=== PATIENT | male | born 1980 | race Caucasian/White ===

== ENCOUNTER 2022-01-27 09:15 | Inpatient (IN) | payer OTHER ==
[~2022-01-27] VITALS: Ht 167.6 cm; Wt 85.3 kg
--- NOTE | 2022-01-27 09:18 | NUR ---
TONY Ansari FROM [facility], VENT-TRACH DEPENDENT. SENT FOR INCREASED MUCUS DISCHARGE AND TACHYCARDIA. WAS ON ANTIBIOTIC AT THE FACILITY. TO ER BED 8, HOOKED TO PRODUCTION MAINTENANCE TECHNICIAN, TACHY AT 125BPM, VENT SETTINGS OF RATE 16, VT OF 450, O2 40%, PEEP OF 5 USING PORTEX 9. NOTED WARM TO TOUCH, 99.8F RECTAL TEMP, DIAPHORETIC. COOLING MEASURES DONE. AWAITING MD MARQUEZ
--- NOTE | 2022-01-27 09:21 | NUR ---
DR SINGH AT BEDSIDE FOR EVAL
[2022-01-27] MEDS ORDERED: VANCOMYCIN 1 GM in IV D5W 250 ML IV ONE (09:30)
[2022-01-27] MEDS ORDERED: IV NS 0.9% 1,000 ML BAG IV ONE (09:30)
[2022-01-27] MEDS ORDERED: PIPERACILLIN /TAZOBACTAM 3.375 G in IV D5W 50 ML IV ONE (09:30)
[2022-01-27] MEDS ORDERED: NUT.237L30 GT (09:46)
[2022-01-27] MEDS ORDERED: POVI3780 TP (09:46)
[2022-01-27] MEDS ORDERED: FURO-144 GT (09:46)
[2022-01-27] MEDS ORDERED: IPRA4AER IH ×2 (09:46)
[2022-01-27] MEDS ORDERED: CHLO473M5 MM (09:46)
[2022-01-27] MEDS ORDERED: ACET-868 GT (09:46)
[2022-01-27] MEDS ORDERED: DOCU-141 GT (09:46)
[2022-01-27] MEDS ORDERED: CLON0.5T4 GT (09:46)
[2022-01-27] MEDS ORDERED: SENN-261 GT (09:46)
[2022-01-27] MEDS ORDERED: ZINC220C6 GT (09:46)
[2022-01-27] MEDS ORDERED: MULT-447 GT (09:46)
[2022-01-27] MEDS ORDERED: CARV3.122 GT (09:46)
[2022-01-27] MEDS ORDERED: ASCO-352 GT (09:46)
[2022-01-27] MEDS ORDERED: ACET-2605 GT (09:46)
[2022-01-27] MEDS ORDERED: NYST15CR TP (09:46)
[2022-01-27] MEDS ORDERED: PIPE4.5F2 IV (09:46)
[2022-01-27] MEDS ORDERED: CLON0.1T GT (09:46)
[2022-01-27] MEDS ORDERED: ENOX40DI SQ (09:46)
[2022-01-27 09:48] LABS: BASOPHILS # (AUTO) 0.1 K/uL (0.0-0.2); BASOPHILS % (AUTO) 0.8 % (0.0-2.0); EOSINOPHILS % (AUTO) 3.6 % (0.0-6.0); HEMATOCRIT 44 % (39-51); HEMOGLOBIN 14.9 g/dL (13.5-17.5); LYMPHOCYTES % (AUTO) 8.7 % (20.0-44.0); MEAN CORPUSCULAR HGB CONC 34 g/dl (31.0-36.0); MEAN CORPUSCULAR VOLUME 95 fL (80-96); MONOCYTES # (AUTO) 0.6 K/uL (0.1-1.30); MONOCYTES % (AUTO) 4.6 % (2.0-12.0); NEUTROPHILS # (AUTO) 9.8 K/uL (1.8-8.9); NEUTROPHILS % (AUTO) 82.3 % (43.0-81.0); PLATELET COUNT (AUTO) 322 K/uL (150-450); RED BLOOD CELL COUNT(AUTO) 4.67 MIL/uL (4.5-6.0); WHITE BLOOD COUNT (AUTO) 11.9 K/uL (4.3-11.0)
--- NOTE | 2022-01-27 09:48 | NUR ---
RAPID COVID SWAB DONE AND SENT TO LAB
--- NOTE | 2022-01-27 09:50 | NUR ---
MOVE SHEET SUBMITTED.
--- NOTE | 2022-01-27 09:53 | NUR ---
RT RECD PT VIA EMS FOR SEPSIS TACHYPNEA TRACH PORTEX 9 INTACT SECURED, ON [facility] VENT AC 16 450 +5 40% BAG MASK AT [facility], VENT PLUGGED IN RED OUTLET SX THICK YELLOW SECRETIONS WILL CONT TO MONITOR Addendum: 01/27/22 at 0954 by PRABHU MERLOS RT Amended: Links added.
[2022-01-27 09:59] LABS: CALCIUM, SERUM 9.8 mg/dL (8.5-10.1); CARBON DIOXIDE 29 mmol/L (21-32); CHLORIDE 100 mmol/L (98-107); CREATININE 0.9 mg/dL (0.6-1.3); GLUCOSE 131 mg/dL (74-106); POTASSIUM 4.2 mmol/L (3.5-5.1); SODIUM SERUM 137 mmol/L (136-145); UREA NITROGEN, BLOOD 19 mg/dL (7-18)
[2022-01-27] MEDS ORDERED: IV NS 0.9% 1,000 ML IV ONE (10:00)
--- NOTE | 2022-01-27 10:06 | NUR ---
URINE SAMPLE COLLECTED AND SENT TO LAB
[2022-01-27 10:15] LABS: ALANINE AMINOTRANSFERASE 64 U/L (12-78); ALKALINE PHOSPHATASE 98 U/L (46-116); ASPARTATE AMINOTRANSFERASE 41 U/L (15-37); BILIRUBIN,DIRECT 0.2 mg/dL (0.0-0.2); BILIRUBIN,TOTAL 0.5 mg/dL (0.2-1.0); TOTAL PROTEIN, SERUM 8.4 g/dL (6.4-8.2)
[2022-01-27] MEDS ORDERED: LABETALOL HCL IV 100MG VIAL ONE (10:51)
[2022-01-27] MEDS ORDERED: LABETALOL HCL IV 100MG VIAL IV ONE (11:00)
[2022-01-27 11:14] LABS: ALBUMIN 3.4 g/dL (3.4-5.0)
[2022-01-27 11:29] LABS: BILIRUBIN,URINE NEGATIVE (NEGATIVE); COLOR,URINE YELLOW (YELLOW); LEUKOCYTE ESTERASE ,URINE NEGATIVE (NEGATIVE); NITRITE, URINE NEGATIVE (NEGATIVE); PH,URINE 7.5 (5.0-8.0); PROTEIN,URINE NEGATIVE (NEGATIVE); UGLUCOSE NEGATIVE (NEGATIVE); UROBILINOGEN,URINE 0.2 EU/dL (0.2)
[2022-01-27] MEDS ORDERED: IV NS 0.9% 250 ML IV ONE (11:37)
[2022-01-27] MEDS ORDERED: IOHEXOL-350 100 ML VIAL IV ONE (11:37)
--- NOTE | 2022-01-27 11:48 | NUR ---
PATIENT BROUGHT TO CT SCAN.
--- NOTE | 2022-01-27 11:49 | NUR ---
CONTACTED DR. VELA FOR CARDIOLOGY CONSULT.
[2022-01-27] MEDS ORDERED: PIPERACILLIN /TAZOBACTAM 4.5 G in IV D5W 50 ML IV SCH (12:00)
[2022-01-27 12:12] LABS: RBC,URINE 0-2 /HPF (0-2)
[2022-01-27 12:13] LABS: BACTERIA,URINE Few /HPF (None Seen); SQUAMOUS EPITHELIAL CELL,UR Few /HPF (None Seen); WBC,URINE 0-2 /HPF (0-3)
[2022-01-27] MEDS ORDERED: HEPARIN INFUSION/D5W 500 ML IV STA (12:13)
[2022-01-27] MEDS ORDERED: HEPARIN SODIUM,PORCINE/PF 50 UNIT/5 ML DISP.SYRIN IV ONE (12:30)
[2022-01-27] MEDS ORDERED: HEPARIN SODIUM, PORCINE 5000 UNITS/1 ML VIAL ONE (12:57)
[2022-01-27] MEDS ORDERED: DEXAMETHASONE SOD PHOSPHATE 4 MG/ML VIAL IV ONE (13:30)
--- NOTE | 2022-01-27 14:11 | NUR ---
[facility] CALLED BAKER HELPER PAGED.
[2022-01-27] MEDS ORDERED: MAG HYDROX/AL HYDROX/SIMETH 30 ML UDC PO PRN (15:00)
[2022-01-27] MEDS ORDERED: ONDANSETRON HCL/PF 4 MG/2 ML VIAL IVP PRN (15:00)
[2022-01-27] MEDS ORDERED: MAGNESIUM HYDROXIDE 30 ML UDC PO PRN (15:00)
[2022-01-27] MEDS ORDERED: Z GUARD REMEDY 4 OZ OINT TP PRN (15:00)
--- NOTE | 2022-01-27 15:01 | NUR ---
RESP TECH AT BEDSIDE FOR SUCTIONING
[2022-01-27] MEDS ORDERED: LORAZEPAM INJ 2 MG/ML VIAL ONE (15:42)
[2022-01-27 15:49] LABS: ABG BASE EXCESS 1.9 mmol/L; ABG PCO2 34.6 mmHg (35.0-45.0); ABG PH 7.476 (7.350-7.450); MetHb 0.5 % (0.0-1.5); O2Hb 98.8 % (94.0-97.0); SITE, ABG Right Radial; VENT MODE, BG AC 16 450 +5 50%
--- NOTE | 2022-01-27 15:53 | NUR ---
GOT BED 107
[2022-01-27 16:00] VITALS: BP 107/71
[2022-01-27] MEDS ORDERED: LORAZEPAM INJ 2 MG/ML VIAL IV ONE (16:00)
--- NOTE | 2022-01-27 16:05 | NUR ---
CHANGE BED TO 102, REPORT GIVEN TO SABA RODRIGUEZ OF TELE UNIT
--- NOTE | 2022-01-27 16:17 | NUR ---
room [facility]
--- NOTE | 2022-01-27 16:45 | NUR ---
RECEIVED APTINET IN BED FROM ER ACCOMPANIED BY TWO NURSES AND A RESPIRATORY THERAPIST. SAMANTA IS ON MECHAINICAL VENT PORTEX # 8, WITH RACHEL SETTING FOLLOWS: AC 18, TV 450, FI02 50% AND PEEP 5. BODY CHEK DONE AND PLEASE SEE CHART FOR PHOTOS. V/S FOLLOWS: BP 107/71, OXYGEN SATURATION OF 100%, RR OF 31, HR OF 89, TEMP OF 99.0. NO RESPIRATORY DISTRESS NOTED. IV ACCESS ON RIGHT HAND # 20 SL AND LEFT UPPER ARM SALINE, BOTH IV SITES INTACT, PATENT AND FLUSHES WELL. PATIENT IS ON HEPARIN @ 1425. BED LOCKED AND IN LOWEST POSITION. ALL SAFETY MEASURES IN PLACE. HOB KEPT ELEVATED. WILL CONTINUE TO MONITOR PATIENT THROUGHOUT SHIFT.
--- NOTE | 2022-01-27 18:00 | NUR ---
DR CHURCH ORDERED TO D/C HEPARIN, ORDER NOTED AND CARRIED OUT.
[2022-01-27] MEDS: IV NS 0.9% 1,000 ML IV PRN (18:31)
[2022-01-27] MEDS: PIPERACILLIN /TAZOBACTAM 4.5 G in IV D5W 50 ML IV SCH ×2 (18:55→23:59)
--- NOTE | 2022-01-27 19:00 | NUR ---
PRELIMINARY ECHO SHOWED EF 25-30%~. INITIAL RESULT ADVISED TO RN.
--- NOTE | 2022-01-27 19:05 | NUR ---
AIR BAG CURER CLOSING NOTES: PATIENT IN BED, OBTUNDED WITH MECH VENT ORDERED. NO RESPIRATORY DISTRESS NOTED. ON SR ON TELE MONITOR WITH HR OF 87. ON NS @ 75 ML/HR VIA LEFT UPPER ARM, INFUSING WELL, NO S/S INFILTRATION NOTED. HOB KEPT ELEVATED. BED LOCKED AND IN LOWEST POSITION. ALL NEEDS MET AND ANTICIPATED. WILL ENDORSE TO NEXT SHIFT FOR CONTINUITY OF CARE.
--- NOTE | 2022-01-27 19:30 | NUR ---
PT RECEIVED AWAKE IN BED, OPENS EYES TO CALL AND TOUCH, DOES NOT FOLLOW COMMAND. ON [facility] VENT ORDERED NOT IN RESPIRATORY DISTRESS. SHOWING SR ON TELE MONITOR WITH HR AT 80'S. HAS IV ACCESS ON LEFT UPPER ARM, INFUSING NS @ 75 ML/HR, NO S/S INFILTRATION NOTED. GT INTACT. FC DRAINING CLEAR YELLOW URINE. SAFETY MEASURES AND SAFETY PRECAUTION IN PLACE. HOB ELEVATED, BED LOCKED IN LOWEST POSITION, SIDE RAILS UP X2, BED ALARM ON, WILL CONTINUE PLAN OF CARE.
[2022-01-27 20:00] VITALS: BP 170/90
--- NOTE | 2022-01-27 20:30 | NUR ---
PT BP 170/90, MD INFORMED. ORDERED TO SUCTION PT. WILL CARRY OUT ORDERED.
[2022-01-27] MEDS: ACETAMINOPHEN 325 MG TABLET PO PRN (20:39)
[2022-01-27] MEDS ORDERED: DEXAMETHASONE SOD PHOSPHATE 10 MG/ML VIAL ONE (21:37)
[2022-01-27] MEDS: VANCOMYCIN 1 GM in IV D5W 250 ML IV SCH (22:23)
--- NOTE | 2022-01-27 23:30 | NUR ---
UPDATED. GAVE PT BED BATH, SUCTIONED AND PRN TYLENOL GIVEN. BP 160/90. NO NEW ORDERS AT THIS TIME. WILL CONTINUE TO MONITOR.
[2022-01-28] VITALS (7 sets, daily range): BP systolic 134–180; BP diastolic 71–98
[2022-01-28] MEDS: ACETAMINOPHEN 325 MG TABLET PO PRN ×3 (03:12→17:46)
[2022-01-28] MEDS: PIPERACILLIN /TAZOBACTAM 4.5 G in IV D5W 50 ML IV SCH ×3 (06:19→17:34)
--- NOTE | 2022-01-28 07:39 | NUR ---
PT AWAKE IN BED, OPENS EYES TO CALL AND TOUCH, DOES NOT FOLLOW COMMAND. ON [facility] VENT ORDERED. SHOWING SR-ST ON TELE MONITOR WITH HR AT 60'S TO 130'S. HAS IV ACCESS ON LEFT UPPER ARM, INFUSING NS @ 75 ML/HR, NO S/S INFILTRATION NOTED. GT INTACT. FC DRAINING CLEAR YELLOW URINE. DUE MEDS AND PRN MEDS GIVEN NEEDED AND ORDERED. NEEDS ATTENDED. SAFETY MEASURES AND SAFETY PRECAUTION MAINTAINED. HOB ELEVATED, BED LOCKED IN LOWEST POSITION, SIDE RAILS UP X2, BED ALARM ON, WILL ENDORSE TO NEXT NURSE ON DUTY FOR CONTINUITY OF CARE.
[2022-01-28 07:42] LABS: BASOPHILS % (AUTO) 0.2 % (0.0-2.0); EOSINOPHILS % (AUTO) 0.1 % (0.0-6.0); HEMATOCRIT 48 % (39-51); HEMOGLOBIN 15.6 g/dL (13.5-17.5); LYMPHOCYTES # (AUTO) 0.8 K/uL (0.8-4.8); MEAN CORPUSCULAR HGB CONC 33 g/dl (31.0-36.0); MEAN CORPUSCULAR VOLUME 97 fL (80-96); MONOCYTES # (AUTO) 0.2 K/uL (0.1-1.30); MONOCYTES % (AUTO) 1.8 % (2.0-12.0); NEUTROPHILS # (AUTO) 10.9 K/uL (1.8-8.9); NEUTROPHILS % (AUTO) 90.9 % (43.0-81.0); PLATELET COUNT (AUTO) 366 K/uL (150-450); RED BLOOD CELL COUNT(AUTO) 4.93 MIL/uL (4.5-6.0)
[2022-01-28 08:26] LABS: CALCIUM, SERUM 10.1 mg/dL (8.5-10.1); CREATININE 1.1 mg/dL (0.6-1.3); MAGNESIUM 2.3 mg/dL (1.8-2.4); PHOSPHORUS 4.1 mg/dL (2.5-4.9); POTASSIUM 4.4 mmol/L (3.5-5.1)
[2022-01-28] MEDS ORDERED: HEPARIN SODIUM, PORCINE 5000 UNITS/1 ML VIAL ONE (08:34)
--- NOTE | 2022-01-28 09:30 | NUR ---
patient tachypneic and diaphoretic,dr. bentley and dr. villagomez notified,awaits abg ,prn ativan given as ordered.will continue to monitor.
--- NOTE | 2022-01-28 09:31 | NUR ---
WOUND CARE CONSULT: REVIEWED CHART, NURSING DOCUMENTATION AND PHOTOS WHICH INDICATE LEFT HEEL WOUND, DISCOLORATION OF LOWER LEGS, AND SACRAL INTACT DEEP TISSUE INJURY WITH SCARRING, ALL PRESENT ON ADMISSION. DISCUSSED SKIN PROTECTION WITH NURSING STAFF. PT IS ON SIDMAN ISOFLEX LOW AIRLOSS BED. DR HARRELL AND DR HAYDEN CALLED FOR SURGICAL/DPM CONSULTS.
[2022-01-28] MEDS: VANCOMYCIN 1 GM in IV D5W 250 ML IV SCH ×2 (09:56→22:26)
[2022-01-28 10:00] LABS: ABG BASE EXCESS -0.8 mmol/L; ABG OXYGEN SATURATION 98.9 % (92.0-98.5); ABG PCO2 29.4 mmHg (35.0-45.0); ABG PH 7.479 (7.350-7.450); ABG PO2 132.4 mmHg (75.0-100.0); COHb 0.4 % (0.5-1.5); MetHb 0.4 % (0.0-1.5); O2Hb 98.1 % (94.0-97.0); SITE, ABG Right Brachial; VENT MODE, BG AC 16 450 40% +5
[2022-01-28] MEDS ORDERED: OSMOLITE 1.2 CAL 1,000 ML LIQUID GT PRN (10:00)
[2022-01-28] MEDS ORDERED: LORAZEPAM INJ 2 MG/ML VIAL IV PRN (10:00)
[2022-01-28] MEDS: CARVEDILOL 3.125 MG TABLET GT SCH ×2 (10:30→17:32)
[2022-01-28] MEDS: IV NS 0.9% 1,000 ML IV PRN (10:35)
[2022-01-28] MEDS: clonazePAM 0.5 MG TABLET GT SCH ×2 (10:38→22:25)
[2022-01-28] MEDS: CHLORHEXIDINE GLUCONATE 15 ML UDC MM SCH (17:32)
--- NOTE | 2022-01-28 19:00 | NUR ---
RN CLOSING NOTES PT AWAKE IN BED, OPENS EYES TO CALL AND TOUCH, DOES NOT FOLLOW COMMAND. ON [facility] VENT ORDERED. SHOWING SR-ST ON TELE MONITOR WITH HR AT 60'S TO 144'S. HAS IV ACCESS ON LEFT UPPER ARM, INFUSING NS @ 75 ML/HR, NO S/S INFILTRATION NOTED. GT INTACT. FC DRAINING CLEAR YELLOW URINE. DUE MEDS AND PRN MEDS GIVEN NEEDED AND ORDERED. NEEDS ATTENDED. SAFETY MEASURES AND SAFETY PRECAUTION MAINTAINED. HOB ELEVATED, BED LOCKED IN LOWEST POSITION, SIDE RAILS UP X2, BED ALARM ON, WILL ENDORSE TO KNOTTING MACHINE OPERATOR NURSE FOR ADAM.
[2022-01-28] MEDS ORDERED: REMDESIVIR (CHARGED) 200 MG, *LOADING DOSE 1 EA in IV NS 0.9% 210 ML IV ONE (20:00)
[2022-01-28] MEDS ORDERED: DEXAMETHASONE SOD PHOSPHATE 4 MG/ML VIAL IV ONE (21:00)
--- NOTE | 2022-01-28 22:10 | NUR ---
2210 critical blood culture result of Gram Positive Cocci in clusters relayed to VIDAL Lovell with no order made.
[2022-01-28] MEDS: SENNOSIDES 8.6 MG TABLET GT SCH (22:26)
[2022-01-29] VITALS: BP 130/97
[2022-01-29] MEDS: PIPERACILLIN /TAZOBACTAM 4.5 G in IV D5W 50 ML IV SCH ×5 (00:55→23:39)
[2022-01-29] MEDS: ACETAMINOPHEN 325 MG TABLET PO PRN ×3 (02:19→19:59)
[2022-01-29] MEDS: LORAZEPAM INJ 2 MG/ML VIAL IV PRN (02:27)
[2022-01-29 04:00] VITALS: BP 116/57
[2022-01-29] MEDS: IV NS 0.9% 1,000 ML IV PRN ×2 (04:54→23:41)
--- NOTE | 2022-01-29 06:00 | NUR ---
RN CLOSING NOTE: ABLE TO OPEN EYES. NON VERBAL. TRACH AND VENT WORKING AT PRESCRIBED SETTINGS. GT IN PLACE PATENT AND MEDICATIONS GIVEN ORDERED. TYLENOL GIVEN TIMES ONE AND ATIVAN GIVEN TIMES ONE ORDERED. ON COOLING MEASURES. ISOLATION PRECAUTIONS MAINTAINED.RN CLOSING NOTE: ABLE TO OPEN EYES. NON VERBAL. TRACH AND VENT WORKING AT PRESCRIBED SETTINGS. GT IN PLACE PATENT AND MEDICATIONS GIVEN ORDERED. TYLENOL GIVEN TIMES ONE AND ATIVAN GIVEN TIMES ONE ORDERED. ON COOLING MEASURES. ISOLATION PRECAUTIONS MAINTAINED. HOB ELEVATED ON SEMI-FOWLERS POSITION. KEPT CLEAN AND DRY. TURNED AND REPOSITIONED WITH PILLOWS. NO A/R TO ABX. IVF ORDERED. ALL IV LINES IN PLACE PATENT AND WITH NO COMPLICATIONS. HOB ELEVATED. BILATERAL HALF SIDE RAILS UP X2. BED IN LOWEST POSITION. BED IS LOCKED. BED EXIT ALARM ON. CALL LIGHT IN REACH.
[2022-01-29 06:59] LABS: BASOPHILS % (AUTO) 0.3 % (0.0-2.0); EOSINOPHILS % (AUTO) 1.1 % (0.0-6.0); HEMATOCRIT 42 % (39-51); HEMOGLOBIN 13.9 g/dL (13.5-17.5); LYMPHOCYTES # (AUTO) 1.4 K/uL (0.8-4.8); LYMPHOCYTES % (AUTO) 10.7 % (20.0-44.0); MEAN CORPUSCULAR HGB CONC 33 g/dl (31.0-36.0); MEAN CORPUSCULAR VOLUME 97 fL (80-96); MONOCYTES % (AUTO) 7.8 % (2.0-12.0); NEUTROPHILS # (AUTO) 10.8 K/uL (1.8-8.9); NEUTROPHILS % (AUTO) 80.1 % (43.0-81.0); PLATELET COUNT (AUTO) 305 K/uL (150-450); RED BLOOD CELL COUNT(AUTO) 4.38 MIL/uL (4.5-6.0); WHITE BLOOD COUNT (AUTO) 13.4 K/uL (4.3-11.0)
[2022-01-29 07:16] LABS: CALCIUM, SERUM 9.5 mg/dL (8.5-10.1); CREATININE 1.3 mg/dL (0.6-1.3)
[2022-01-29 08:00] VITALS: BP 190/120
[2022-01-29] MEDS ORDERED: POTASSIUM CHLORIDE 20 MEQ POWDER PACKET GT SCH (08:00)
[2022-01-29] MEDS: ASCORBIC ACID 500 MG TABLET GT SCH (08:06)
[2022-01-29] MEDS: CHLORHEXIDINE GLUCONATE 15 ML UDC MM SCH ×2 (08:06→16:29)
[2022-01-29] MEDS: CARVEDILOL 3.125 MG TABLET GT SCH ×2 (08:07→16:29)
[2022-01-29] MEDS: clonazePAM 0.5 MG TABLET GT SCH ×2 (08:07→22:08)
[2022-01-29] MEDS: CLONIDINE HCL 0.1 MG TABLET GT PRN (08:08)
[2022-01-29] MEDS: DOCUSATE SODIUM 100 MG CAPSULE PO SCH (08:08)
[2022-01-29] MEDS: DEXAMETHASONE SOD PHOSPHATE 4 MG/ML VIAL IV SCH (10:54)
[2022-01-29] MEDS ORDERED: GLUCERNA 1.2 1,000 ML BOTTLE NG PRN (11:30)
[2022-01-29 12:00] VITALS: BP 111/71
[2022-01-29] MEDS: GLUCERNA 1.2 1,000 ML BOTTLE NG PRN (12:06)
[2022-01-29] MEDS: VANCOMYCIN HCL 0.75 GM in IV D5W 250 ML IV SCH (13:33)
[2022-01-29 16:00] VITALS: BP 105/68
--- NOTE | 2022-01-29 18:59 | NUR ---
RN NOTE PT RESTING IN BED, OBTUNDED.ON [facility] VENT ORDERED TOLERATING WELL. SHOWING SR-ST ON TELE MONITOR WITH HR AT 130'S. IV ACCESS ON LEFT UPPER ARM, INFUSING NS @ 75 ML/HR, NO S/S INFILTRATION NOTED. GT INTACT WITH FEEDING GLUCERNA 1.2 @80CC.HR. FC DRAINING CLEAR YELLOW URINE. DUE MEDS AND PRN MEDS GIVEN. NEEDS ATTENDED. SAFETY MEASURES AND SAFETY PRECAUTION FOLLOWED. COVID PREC.
[2022-01-29 20:00] VITALS: BP 121/81
[2022-01-29] MEDS ORDERED: REMDESIVIR (CHARGED) 100 MG in IV NS 0.9% 100 ML IV SCH (20:00)
[2022-01-29] MEDS: SENNOSIDES 8.6 MG TABLET GT SCH (22:08)
[2022-01-30] VITALS (7 sets, daily range): BP systolic 103–175; BP diastolic 65–109
[2022-01-30] MEDS: VANCOMYCIN HCL 0.75 GM in IV D5W 250 ML IV SCH ×2 (00:38→12:38)
[2022-01-30] MEDS: CLONIDINE HCL 0.1 MG TABLET GT PRN (03:56)
[2022-01-30] MEDS: ACETAMINOPHEN 325 MG TABLET PO PRN ×2 (03:56→10:14)
[2022-01-30] MEDS: PIPERACILLIN /TAZOBACTAM 4.5 G in IV D5W 50 ML IV SCH ×2 (05:23→12:37)
--- NOTE | 2022-01-30 05:56 | NUR ---
RT Pt recvd on current vent settings of AC/VC, RR 16, VT 450, FIO2 40%, PEEP +5 and pt jorje well. Trach is Portex 9 and is patent, midline and secured. Suction done Q2/PRN and Trach care done. Spo2 >92% maintained. No SOB or Respiratory distress noted throughout shift. Vent plugged into red outlet with alarms on and audible. Spare trach and ambu bag at bedside.
--- NOTE | 2022-01-30 07:00 | NUR ---
RN CLOSING NOTE: ABLE TO OPEN EYES. NON VERBAL. TRACH AND VENT WORKING AT PRESCRIBED SETTINGS. ON COOLING MEASURES. GT IN PLACE PATENT AND MEDICATIONS GIVEN ORDERED.ON COOLING MEASURES. ISOLATION PRECAUTIONS MAINTAINED. HOB ELEVATED ON SEMI-FOWLERS POSITION. KEPT CLEAN AND DRY. TOPICAL TREATMENT DONE ORDERED. ON TELE MONITOR WITH A READING OF SINUS TACHY 100-116. TURNED AND REPOSITIONED WITH PILLOWS. NO A/R TO ABX. IVF ORDERED. ALL IV LINES IN PLACE PATENT AND WITH NO COMPLICATIONS. HOB ELEVATED. BILATERAL HALF SIDE RAILS UP X2. BED IN LOWEST POSITION. BED IS LOCKED. BED EXIT ALARM ON. CALL LIGHT IN REACH.
[2022-01-30 07:05] LABS: BASOPHILS % (AUTO) 0.3 % (0.0-2.0); EOSINOPHILS % (AUTO) 0.5 % (0.0-6.0); HEMATOCRIT 42 % (39-51); HEMOGLOBIN 13.7 g/dL (13.5-17.5); LYMPHOCYTES # (AUTO) 1.6 K/uL (0.8-4.8); MEAN CORPUSCULAR HGB CONC 33 g/dl (31.0-36.0); MEAN CORPUSCULAR VOLUME 97 fL (80-96); MONOCYTES # (AUTO) 1.2 K/uL (0.1-1.30); MONOCYTES % (AUTO) 9.7 % (2.0-12.0); NEUTROPHILS # (AUTO) 9.3 K/uL (1.8-8.9); NEUTROPHILS % (AUTO) 76.5 % (43.0-81.0); PLATELET COUNT (AUTO) 280 K/uL (150-450); RED BLOOD CELL COUNT(AUTO) 4.33 MIL/uL (4.5-6.0); WHITE BLOOD COUNT (AUTO) 12.2 K/uL (4.3-11.0)
[2022-01-30 07:47] LABS: BILIRUBIN,DIRECT 0.2 mg/dL (0.0-0.2); CALCIUM, SERUM 9.2 mg/dL (8.5-10.1); POTASSIUM 3.7 mmol/L (3.5-5.1)
[2022-01-30 08:18] LABS: BILIRUBIN,TOTAL 0.5 mg/dL (0.2-1.0); TOTAL PROTEIN, SERUM 7.2 g/dL (6.4-8.2)
[2022-01-30] MEDS: clonazePAM 0.5 MG TABLET GT SCH ×2 (10:14→21:30)
[2022-01-30] MEDS: DOCUSATE SODIUM 100 MG CAPSULE PO SCH (10:15)
[2022-01-30] MEDS: ASCORBIC ACID 500 MG TABLET GT SCH (10:15)
[2022-01-30] MEDS: CARVEDILOL 3.125 MG TABLET GT SCH ×2 (10:15→17:00)
[2022-01-30] MEDS: CHLORHEXIDINE GLUCONATE 15 ML UDC MM SCH ×2 (10:16→17:42)
[2022-01-30] MEDS: DEXAMETHASONE SOD PHOSPHATE 4 MG/ML VIAL IV SCH (10:18)
--- NOTE | 2022-01-30 18:43 | NUR ---
RN NOTE PT RESTING IN BED, OBTUNDED.ON [facility] VENT ORDERED TOLERATING WELL. SHOWING SR-ST ON TELE MONITOR WITH HR AT 130'S. IV ACCESS ON LEFT UPPER ARM, INFUSING NS @ 75 ML/HR, NO S/S INFILTRATION NOTED. GT INTACT WITH FEEDING GLUCERNA 1.2 @80CC.HR. FC DRAINING CLEAR YELLOW URINE. DUE MEDS AND PRN MEDS GIVEN. NEEDS ATTENDED. SAFETY MEASURES AND SAFETY PRECAUTION FOLLOWED. COVID PREC.
[2022-01-30] MEDS: IV NS 0.9% 1,000 ML IV PRN (18:51)
[2022-01-30] MEDS: GLUCERNA 1.2 1,000 ML BOTTLE NG PRN (18:56)
--- NOTE | 2022-01-30 19:10 | NUR ---
RN NOTES RECEIVED REPORT FROM MORNING SHIFT. PATIENT OBTUNDED RESPONSIVE TO TACTILE STIMULI. WITH TRACH PORTEX #9 CONNECTED TO MV AC 16 TV 450 FIO2 50 PEEP 5 SATING 98%. WITH IV ACCESS AT KIAH ML PATENT FLUSHES WELL. ON NS @ 75ML/HR. WITH GT PATENT CONNECTED TO CONTINUOS FEEDING RUNNING GLUCERNA 2 80 ML/HR. OLVERA CATHETER CONNECTED TO URINE BAG DRAINING YELLOWISH URINE OUTPUT. VITAL SIGNS TAKEN AND RECORDED AFEBRILE. ALL SAFETY MEASURES IN PLACE. ISOLATION PRECAUTION OBSERVED AT ALL TIMES. HOB ELEVATED. WILL CONTINUE TO MONITOR THE PATIENT
[2022-01-30] MEDS: SENNOSIDES 8.6 MG TABLET GT SCH (21:30)
[2022-01-31] VITALS: BP 141/84
[2022-01-31] MEDS: LORAZEPAM INJ 2 MG/ML VIAL IV PRN (02:37)
[2022-01-31 04:00] VITALS: BP 138/68
[2022-01-31] MEDS: ACETAMINOPHEN ES 500 MG TABLET GT PRN (06:23)
--- NOTE | 2022-01-31 06:44 | NUR ---
RN NOTE PT RESTING IN BED, OBTUNDED.ON [facility] VENT ORDERED TOLERATING WELL. SHOWING SR-ST ON TELE MONITOR WITH HR AT 130'S. IV ACCESS ON LEFT UPPER ARM, INFUSING NS @ 75 ML/HR, NO S/S INFILTRATION NOTED. GT INTACT WITH FEEDING GLUCERNA 1.2 @80CC.HR. FC DRAINING CLEAR YELLOW URINE. DUE MEDS AND PRN MEDS GIVEN. NEEDS ATTENDED. SAFETY MEASURES AND SAFETY PRECAUTION FOLLOWED. COVID PREC.
[2022-01-31 08:00] VITALS: BP 150/107
[2022-01-31 08:21] LABS: BASOPHILS # (AUTO) 0.1 K/uL (0.0-0.2); BASOPHILS % (AUTO) 0.6 % (0.0-2.0); EOSINOPHILS % (AUTO) 0.5 % (0.0-6.0); HEMATOCRIT 44 % (39-51); HEMOGLOBIN 14.4 g/dL (13.5-17.5); LYMPHOCYTES # (AUTO) 1.8 K/uL (0.8-4.8); LYMPHOCYTES % (AUTO) 9.6 % (20.0-44.0); MEAN CORPUSCULAR HGB CONC 33 g/dl (31.0-36.0); MEAN CORPUSCULAR VOLUME 97 fL (80-96); MONOCYTES # (AUTO) 1.1 K/uL (0.1-1.30); MONOCYTES % (AUTO) 6.1 % (2.0-12.0); NEUTROPHILS # (AUTO) 15.3 K/uL (1.8-8.9); NEUTROPHILS % (AUTO) 83.2 % (43.0-81.0); PLATELET COUNT (AUTO) 281 K/uL (150-450); RED BLOOD CELL COUNT(AUTO) 4.58 MIL/uL (4.5-6.0); WHITE BLOOD COUNT (AUTO) 18.4 K/uL (4.3-11.0)
[2022-01-31] MEDS: CHLORHEXIDINE GLUCONATE 15 ML UDC MM SCH ×2 (08:36→16:42)
[2022-01-31] MEDS: DOCUSATE SODIUM 100 MG CAPSULE PO SCH (08:37)
[2022-01-31] MEDS: DEXAMETHASONE SOD PHOSPHATE 4 MG/ML VIAL IV SCH (08:37)
[2022-01-31] MEDS: clonazePAM 0.5 MG TABLET GT SCH ×2 (08:37→22:05)
[2022-01-31] MEDS: ASCORBIC ACID 500 MG TABLET GT SCH (08:37)
[2022-01-31] MEDS: CARVEDILOL 3.125 MG TABLET GT SCH ×2 (08:38→16:42)
[2022-01-31 08:43] LABS: ALBUMIN 3.4 g/dL (3.4-5.0); BILIRUBIN,DIRECT 0.2 mg/dL (0.0-0.2); BILIRUBIN,TOTAL 0.4 mg/dL (0.2-1.0); CALCIUM, SERUM 9.8 mg/dL (8.5-10.1); CREATININE 1.5 mg/dL (0.6-1.3); POTASSIUM 3.8 mmol/L (3.5-5.1); TOTAL PROTEIN, SERUM 7.9 g/dL (6.4-8.2)
[2022-01-31] MEDS: ACETAMINOPHEN 325 MG TABLET PO PRN ×2 (11:11→16:45)
[2022-01-31] MEDS: IV NS 0.9% 1,000 ML IV PRN (11:12)
[2022-01-31] MEDS: GLUCERNA 1.2 1,000 ML BOTTLE NG PRN (11:21)
[2022-01-31 12:00] VITALS: BP 119/82
--- NOTE | 2022-01-31 15:00 | NUR ---
RESPIRATORY THERAPIST TOOK A SAMPLE FOR RESPIRATORY CULTURE WITH GRAM STAIN
[2022-01-31 16:00] VITALS: BP 182/89
[2022-01-31] MEDS: hydrALAZINE HCL IV 20 MG VIAL IV PRN (16:43)
--- NOTE | 2022-01-31 18:21 | NUR ---
RECEIVED A CALL FROM MARIO FROM THE PHARMACY REGARDING [facility] COAGUL[facility] NEGATIVE. DR RODRÍGUEZ INFORMED AND SAID THAT ID IS ON THAT CASE. ENDORSED TO INCOMING NURSE
--- NOTE | 2022-01-31 18:36 | NUR ---
BEAM CARRIER HAULER PUSHER CLOSING NOTES: PATIENT IN BED, OBTUNDED, ON MECHANICAL VENT ORDERED. ON SR ON TELE MONITOR WITH HR OF 97. ALL NEEDS MET AND ANTICIPATED. HOB KEPT ELEVATED. ON IV FLUID ORDERED AND G-TUBE FEEDING OF GLUCERNA 1.2 @ 80 ML/HR. BED LOCKED AND IN LOWEST POSITION. WILL ENDORSE TO NEXT SHIFT NURSE FOR CONTINUITY OF CARE.
--- NOTE | 2022-01-31 19:18 | NUR ---
RN NOTES RECEIVED PT FOR CONTINUITY OF CARE. PATIENT OBTUNDED IN NO S/SX OF ACUTE DISTRESS AT THIS TIME; CURRENTLY ON MECHANICAL VENT; SETTING PRESCRIBED, WITH 02 SAT >95% AT THIS TIME. WITH IV ACCESS ON L UA MIDLINE PATENT, INTACT AND FLUSHING WELL. IV FLUID RUNNING ORDERED. GTUBE FEEDING RUNNING PRESCRIBED. WILL ENSURE SAFETY MEASURES WITHIN THE SHIFT. PATIENT BED ALARM IS ON. HEAD OF BED ELEVATED. BED IS LOCKED, IN LOWEST POSITION AND SIDE RAILS UP. CALL LIGHT WITHIN REACH OF THE PATIENT. APPLICABLE ISOLATION PRECAUTIONS IN PLACE. WILL CONTINUE TO MONITOR AND REASSESS FOR ANY CHANGES AND WILL CARRY OUT ANY ONGOING AND ACTIVE MD ORDER.
[2022-01-31 20:00] VITALS: BP 116/76
[2022-01-31] MEDS: SENNOSIDES 8.6 MG TABLET GT SCH (22:04)
[2022-02-01] VITALS: BP 112/79
[2022-02-01] MEDS: IV NS 0.9% 1,000 ML IV PRN ×2 (02:10→18:52)
[2022-02-01] MEDS: LORAZEPAM INJ 2 MG/ML VIAL IV PRN ×3 (02:49→21:38)
[2022-02-01] MEDS: ACETAMINOPHEN ES 500 MG TABLET GT PRN (02:49)
[2022-02-01 04:00] VITALS: BP 125/76
[2022-02-01 06:23] LABS: BASOPHILS # (AUTO) 0.1 K/uL (0.0-0.2); BASOPHILS % (AUTO) 0.3 % (0.0-2.0); EOSINOPHILS % (AUTO) 0.1 % (0.0-6.0); HEMATOCRIT 45 % (39-51); HEMOGLOBIN 14.7 g/dL (13.5-17.5); LYMPHOCYTES # (AUTO) 0.5 K/uL (0.8-4.8); LYMPHOCYTES % (AUTO) 2.6 % (20.0-44.0); MEAN CORPUSCULAR HGB CONC 33 g/dl (31.0-36.0); MEAN CORPUSCULAR VOLUME 97 fL (80-96); MONOCYTES # (AUTO) 0.3 K/uL (0.1-1.30); MONOCYTES % (AUTO) 1.7 % (2.0-12.0); NEUTROPHILS # (AUTO) 18.9 K/uL (1.8-8.9); NEUTROPHILS % (AUTO) 95.3 % (43.0-81.0); PLATELET COUNT (AUTO) 253 K/uL (150-450); RED BLOOD CELL COUNT(AUTO) 4.64 MIL/uL (4.5-6.0); WHITE BLOOD COUNT (AUTO) 19.8 K/uL (4.3-11.0)
--- NOTE | 2022-02-01 06:30 | NUR ---
RN CLOSING NOTE: PATIENT REMAINS IN ROOM IN NO SIGNS OF RESPIRATORY DISTRESS, PATIENT STILL ON MECH VENT; SETTINGS PRESCRIBED. SAFETY MEASURES IMPLEMENTED, BED IN LOWEST POSITION, LOCKED, SIDE RAILS UP, CALL LIGHT WITHIN REACH. ALL NEEDS AND ORDERS ADDRESSED DURING THE SHIFT. IV ACCESS MAINTAINED INTACT, SECURED AND FLUSHING WELL. ALL DUE MEDS GIVEN ORDERED & SCHEDULED ; PATIENT TOLERATED WELL. PATIENT KEPT CLEAN AND COMFORTABLE WITHIN THE SHIFT. PATIENT ENDORSED TO INCOMING SHIFT RN WITH STABLE VITAL SIGN AND FOR CONTINUITY OF CARE.
[2022-02-01 07:15] LABS: ALBUMIN 3.3 g/dL (3.4-5.0); BILIRUBIN,DIRECT 0.3 mg/dL (0.0-0.2); BILIRUBIN,TOTAL 0.8 mg/dL (0.2-1.0); CALCIUM, SERUM 9.4 mg/dL (8.5-10.1); CREATININE 1.4 mg/dL (0.6-1.3); POTASSIUM 3.2 mmol/L (3.5-5.1); TOTAL PROTEIN, SERUM 7.8 g/dL (6.4-8.2)
--- NOTE | 2022-02-01 07:36 | NUR ---
NEWS CONTENT SPECIALIST NOTE: PATIENT IN BED , NO SIGNS OF RESPIRATORY DISTRESS, PATIENT STILL ON MECH VENT; SETTINGS PRESCRIBED. SAFETY MEASURES IMPLEMENTED, BED IN LOWEST POSITION, LOCKED, SIDE RAILS UP, CALL LIGHT WITHIN REACH. ALL NEEDS ATTENDED ,IV LT UPPER ARM MID LINE INTACT, SECURED AND FLUSHING WELL. PATIENT TOLERATED WELL. PATIENT KEPT CLEAN AND COMFORTABLE .ON G TUBE FEEDING ORDERED KEEP HOB ELEVATED AT ALL TIME , WILL CONT TO MONITOR
[2022-02-01] MEDS: CEFEPIME 2 GM in IV D5W 100 ML IV SCH ×3 (07:53→21:28)
[2022-02-01 08:00] VITALS: BP 117/84
[2022-02-01] MEDS: CHLORHEXIDINE GLUCONATE 15 ML UDC MM SCH ×2 (08:26→16:27)
[2022-02-01] MEDS: ASCORBIC ACID 500 MG TABLET GT SCH (08:26)
[2022-02-01] MEDS: DOCUSATE SODIUM 100 MG CAPSULE PO SCH (08:26)
[2022-02-01] MEDS: clonazePAM 0.5 MG TABLET GT SCH ×2 (08:26→21:28)
[2022-02-01] MEDS: DEXAMETHASONE SOD PHOSPHATE 4 MG/ML VIAL IV SCH (08:26)
[2022-02-01] MEDS: CARVEDILOL 3.125 MG TABLET GT SCH ×2 (08:27→16:27)
[2022-02-01] MEDS: ACETAMINOPHEN 325 MG TABLET PO PRN (08:28)
--- NOTE | 2022-02-01 09:34 | NUR ---
CLAIM MANAGER NOTE K3.2 DR RODRÍGUEZ NOTIFIED WITH ORDER KCL 40 MEQ TIME ONE
[2022-02-01] MEDS ORDERED: POTASSIUM CHLORIDE 20 MEQ POWDER PACKET GT ONE (10:00)
[2022-02-01 12:00] VITALS: BP 129/73
--- NOTE | 2022-02-01 15:06 | NUR ---
TELERN NOTE PER DR ANNE KIDD TO PLACE MID LINE
--- NOTE | 2022-02-01 15:06 | NUR ---
NATIONAL SERVICE OFFICER NOTE NOTED TEAT LT ARM WITH REDNESS AND SWOLLEN, KEEP ELEVATED ,CALLED TO DR RODRÍGUEZ WITH ORDER TO GET DOPPLEX LT ARM ORDER CARRIED OUT
[2022-02-01] MEDS: VANCOMYCIN 1.25 GM in IV D5W 250 ML IV SCH (15:09)
[2022-02-01] MEDS: GLUCERNA 1.2 1,000 ML BOTTLE NG PRN (15:15)
[2022-02-01 16:00] VITALS: BP 128/86
--- NOTE | 2022-02-01 16:10 | NUR ---
BROADCAST OPERATIONS MANAGER NOTE DUPLEX US LT ARM DONE ORDEED WILL AWAIT FOR RESULT
--- NOTE | 2022-02-01 16:39 | NUR ---
INSIGHT LEADER NOTE CALLED RADIOLOGY NOTIFIED THAT US DOPPLER NO RESULT YET ,STATED THAT WILL REPORT TO RADIOLOGIST WILL F\U
--- NOTE | 2022-02-01 17:18 | NUR ---
PIPE MACHINE OPERATOR NOTE REPORTED TO DR RODRÍGUEZ US LT ARM TRINA THROMBUS IN SUBFACIAL VEIN IN MID TO DISTAL CEPHALIC VEIN AND NO EVIDENCE DVT , NO NEW ORDER GIVEN AT THIS TIME
--- NOTE | 2022-02-01 18:25 | NUR ---
telephone betting clerk note patient in bed, all needs attended, with trach to vent setting as ordered, with Teixeira cath to gravity with yellow color urine,, on tele monitor st hr 117 at this time, , with g tube feeding as ordered, keep hob elevated all time, lt arm swollen, keep elevated at this time, rt upper arm mid randi in place ,on ivf as ordered, bed in lowest and lock position , will cont to monitor closely
[2022-02-01 20:00] VITALS: BP 112/72
[2022-02-01] MEDS: SENNOSIDES 8.6 MG TABLET GT SCH (21:28)
--- NOTE | 2022-02-01 21:38 | NUR ---
TELEPHONE AD TAKER OPENING NOTE PT RECEIVED IN BED, OBTUNDED. PT ON PORTEX #9, AC 16, TV 450, FIO2 40%, PEEP 5 WITH CURRENT O2SAT OF 98%; NO S/S OF RESP DISTRESS, NO SOB OR COUGH, NON-LABORED AND EQUAL BREATHING; APPEARS COMFORTABLE OVERALL. PT ATTACHED TO EXTERNAL MONITOR, ST WITH HR OF 115. OLVERA INTACT AND PATENT, DRAINING CLEAR AND YELLOW URINE. GTD C/D/I WITH GLUCERNA RUNNING AT 80 ML/HR; WILL TURN FEEDING OFF AT 0400. RIGHT HAND 18G AND VOLODYMYR MIDLINE 18G INTACT AND PATENT, FLUSHES EASILY WITH NO RESISTANCE, NS INFUSING AT 75 ML/HR. BED IN LOWEST POSITION, CALL LIGHT WITHIN REACH, SIDE RAILS UP X3. WILL CONTINUE TO MONITOR THROUGHOUT THE NIGHT.
--- NOTE | 2022-02-01 21:40 | NUR ---
RN NOTE PTS HR NOTED TO BE 115. PT ADMINISTERED ATIVAN 0.5 MG. WILL MONITOR FOR EFFECTIVENESS.
[2022-02-02] VITALS: BP 136/68
[2022-02-02 04:00] VITALS: BP 155/92
[2022-02-02] MEDS: CEFEPIME 2 GM in IV D5W 100 ML IV SCH ×3 (04:16→20:56)
[2022-02-02] MEDS: IV NS 0.9% 1,000 ML IV PRN (05:02)
--- NOTE | 2022-02-02 06:38 | NUR ---
CARD CUTTER CLOSING NOTE PT REMAINS IN BED, OBTUNDED, OPENS EYES, NON-VERBAL. CONTINUES TO BE ON SAME VENT SETTINGS; TOLERATED VENT SETTINGS WELL WITH O2SAT RANGING FROM 98%-100%; NO S/S OF RESP DISTRESS, NO SOB OR COUGH, NON-LABORED AND EQUAL BREATHING. ATTACHED TO EXTERNAL MONITOR, ST WITH HR HIGH 120S. OLVERA INTACT AND PATENT, DRAINING CLEAR AND YELLOW URINE. GTD C/D/I; GTF TURNED OFF AT 0400 TO ENSURE GTF ORDER OF GLUCERNA 80 ML/HR X 20 HR; WILL ENDORSE TO DAYSHIFT NURSE TO TURN TF BACK ON AT 0800. RIGHT HAND 20G AND VOLODYMYR MIDLINE INTACT AND PATENT, FLUSHES EASILY WITH NO RESISTANCE; NS INFUSING AT 75 ML/HR. ALL DUE MEDS ADMINISTERED DURING THE NIGHT. BED IN LOWEST POSITION, CALL LIGHT WITHIN REACH, SIDE RAILS UP X3. WILL ENDORSE TO DAYSHIFT NURSE TO CONTINUE CARE.
[2022-02-02 06:58] LABS: BASOPHILS % (AUTO) 0.2 % (0.0-2.0); HEMATOCRIT 38 % (39-51); HEMOGLOBIN 12.4 g/dL (13.5-17.5); LYMPHOCYTES # (AUTO) 0.8 K/uL (0.8-4.8); LYMPHOCYTES % (AUTO) 5.6 % (20.0-44.0); MEAN CORPUSCULAR HGB CONC 33 g/dl (31.0-36.0); MEAN CORPUSCULAR VOLUME 97 fL (80-96); MONOCYTES # (AUTO) 0.6 K/uL (0.1-1.30); MONOCYTES % (AUTO) 4.2 % (2.0-12.0); NEUTROPHILS # (AUTO) 12.6 K/uL (1.8-8.9); PLATELET COUNT (AUTO) 188 K/uL (150-450); RED BLOOD CELL COUNT(AUTO) 3.89 MIL/uL (4.5-6.0); WHITE BLOOD COUNT (AUTO) 14.2 K/uL (4.3-11.0)
--- NOTE | 2022-02-02 07:07 | NUR ---
ZIGZAG TUNNEL ELASTIC OPERATOR OPENING NOTES: RECEIVED PATIENT IN BED, OBTUNDED, ON MECHANICAL VENT PORTEX # 8, WITH VENT SETTING FOLLOWS: AC 16, TV 450, FI02 50% AND PEEP 5, OXYGEN SATURATION OF 98%. NO RESPIRATORY DISTRESS NOTED. IV ACCESS ON RIGHT HAND # 20 SL AND LEFT UPPER ARM MIDLINE RUNNING WITH NS @ 75ML/HR. IV SITES INTACT, PATENT AND FLUSHES WELL, NO S/S INFILTRATION NOTED. G-TUBE INTACT, IN PLACE, NO RESIDUAL NOTED WITH G-TUBE FEEDING OF GLUCERNA 80 ML/HR. OLVERA CATHETER INTACT, IN PLACE AND DRAINING WITH YELLOW LUCIA URINE, NO HEMATURIA AND NO SEDIMENTATION NOTED. BED LOCKED AND IN LOWEST POSITION. ALL SAFETY MEASURES IN PLACE. HOB KEPT ELEVATED. CALL LIGHT WITHIN REACH. WILL CONTINUE TO MONITOR PATIENT THROUGHOUT SHIFT.
[2022-02-02 07:13] LABS: ALBUMIN 2.7 g/dL (3.4-5.0); BILIRUBIN,DIRECT 0.2 mg/dL (0.0-0.2); BILIRUBIN,TOTAL 0.4 mg/dL (0.2-1.0); CALCIUM, SERUM 8.9 mg/dL (8.5-10.1); CREATININE 1.3 mg/dL (0.6-1.3); POTASSIUM 3.6 mmol/L (3.5-5.1)
[2022-02-02 08:00] VITALS: BP 155/92
[2022-02-02] MEDS: ASCORBIC ACID 500 MG TABLET GT SCH (08:37)
[2022-02-02] MEDS: CHLORHEXIDINE GLUCONATE 15 ML UDC MM SCH ×2 (08:37→16:24)
[2022-02-02] MEDS: clonazePAM 0.5 MG TABLET GT SCH ×2 (08:37→20:46)
[2022-02-02] MEDS: DEXAMETHASONE SOD PHOSPHATE 4 MG/ML VIAL IV SCH (08:37)
[2022-02-02] MEDS: CARVEDILOL 3.125 MG TABLET GT SCH ×3 (08:38→16:25)
[2022-02-02] MEDS: DOCUSATE SODIUM LIQ 100 MG/10 ML UDC GT SCH (08:42)
[2022-02-02 12:00] VITALS: BP 130/91
[2022-02-02] MEDS: VANCOMYCIN 1.25 GM in IV D5W 250 ML IV SCH (13:31)
[2022-02-02] MEDS: ACETAMINOPHEN 325 MG TABLET PO PRN (14:40)
[2022-02-02] MEDS: GLUCERNA 1.2 1,000 ML BOTTLE NG PRN (14:43)
[2022-02-02] MEDS: ACETAMINOPHEN 650 MG/20.3 ML UDC GT PRN ×2 (15:18→20:46)
--- NOTE | 2022-02-02 15:19 | NUR ---
RN NOTE PATIENT DEVELOPED ELEVATED TEMP 100.6 , TYLENOL 650 MG WAS ADMINISTERED VIA G TUBE
[2022-02-02 16:03] VITALS: BP 126/87
--- NOTE | 2022-02-02 18:07 | NUR ---
DRIVER/GUIDE CLOSING NOTE PT REMAINS IN BED, OBTUNDED, OPENS EYES, NON-VERBAL. CONTINUES TO BE ON SAME VENT SETTINGS; TOLERATED VENT SETTINGS WELL WITH O2SAT RANGING FROM 98%-100%; NO S/S OF RESP DISTRESS, NO SOB OR COUGH, NON-LABORED AND EQUAL BREATHING. ATTACHED TO EXTERNAL MONITOR, ST WITH HR HIGH 120S. OLVERA INTACT AND PATENT, DRAINING CLEAR AND YELLOW URINE.PATIENT IS ON G TUBE FEEDING GLUCERNA 80 ML/HR X 20 HR; WILL ENDORSE TO NIGHT NURSE TO TURN ITOFF AT4 AM . RIGHT HAND 20G AND VOLODYMYR MIDLINE INTACT AND PATENT, FLUSHES EASILY WITH NO RESISTANCE; . ALL DUE MEDS ADMINISTERED DURINGALL NEEDS WERE MET BED IN LOWEST POSITION, CALL LIGHT WITHIN REACH, SIDE RAILS UP X3. WILL ENDORSE TO NIGHT NURSE TO CONTINUE CARE.
[2022-02-02 20:00] VITALS: BP 161/106
[2022-02-02] MEDS: LORAZEPAM INJ 2 MG/ML VIAL IV PRN (20:46)
[2022-02-02] MEDS: hydrALAZINE HCL IV 20 MG VIAL IV PRN (20:47)
--- NOTE | 2022-02-02 20:48 | NUR ---
RN NOTE PT NOTED TO HAVE BP OF 161/106 WITH HR OF 131; PT ADMINISTERED HYDRALAZINE. PT'S RESPIRATIONS ALSO ELEVATED AT 41; PT ADMINISTERED ATIVAN. PT ALSO APPEARS DIAPHORETIC WITH TEMP OF 99.0; PT ADMINISTERED TYLENOL.
[2022-02-02] MEDS: SENNOSIDES 8.6 MG TABLET GT SCH (21:15)
--- NOTE | 2022-02-02 22:30 | NUR ---
PIVOT MAKER OPENING NOTE PT RECEIVED IN BED, OBTUNDED, NON-VERBAL, OPENS EYES. PT ON PORTEX #9, AC 16, TV 450, FIO2 40%, PEEP 5; WITH O2SAT OF 100%; DURING BEGINNING OF SHIFT RR WERE 42 AND NOTED TO BE USING ABDOMINAL MUSCLES; AFTER ATIVAN ADMINISTERED RR DOWN TO 24 AND BREATHING WITH NO USE OF ACCESSORY MUSCLES. PT ATTACHED TO EXTERNAL MONITOR HR DOWN TO 97, SR. OLVERA INTACT AND PATENT, DRAINING CLEAR AND YELLOW URINE. GTD C/D/I WITH GLUCERNA AT 80 ML/HR. RIGHT HAND 20G AND VOLODYMYR MIDLINE 18G INTACT AND PATENT, FLUSHES EASILY WITH NO RESISTANCE; NO MEDS/FLUIDS INFUSING THROUGH. BED IN LOWEST POSITION, CALL LIGHT WITHIN REACH, SIDE RAILS UP X3. WILL CONTINUE TO MONITOR THROUGHOUT THE NIGHT.
[2022-02-03] VITALS: BP 139/95
[2022-02-03] MEDS: LORAZEPAM INJ 2 MG/ML VIAL IV PRN (02:59)
--- NOTE | 2022-02-03 02:59 | NUR ---
RN NOTE PT'S HR NOTED TO BE 124 WITH RR OF 41. ATIVAN 0.5 MG ADMINISTERED; WILL MONITOR FOR EFFECTIVENESS.
[2022-02-03 04:00] VITALS: BP 162/109
[2022-02-03] MEDS: CEFEPIME 2 GM in IV D5W 100 ML IV SCH ×3 (05:08→21:17)
[2022-02-03] MEDS: hydrALAZINE HCL IV 20 MG VIAL IV PRN (05:56)
--- NOTE | 2022-02-03 05:56 | NUR ---
RN NOTE PT'S 0400 BP IS 162//109 WITH HR OF 124. PT ADMINISTERED HYDRALAZINE 20 MG.
[2022-02-03 06:05] LABS: BASOPHILS % (AUTO) 0.3 % (0.0-2.0); EOSINOPHILS % (AUTO) 1.5 % (0.0-6.0); HEMATOCRIT 43 % (39-51); HEMOGLOBIN 13.8 g/dL (13.5-17.5); LYMPHOCYTES # (AUTO) 1.2 K/uL (0.8-4.8); LYMPHOCYTES % (AUTO) 10.6 % (20.0-44.0); MEAN CORPUSCULAR HGB CONC 33 g/dl (31.0-36.0); MEAN CORPUSCULAR VOLUME 97 fL (80-96); MONOCYTES # (AUTO) 0.8 K/uL (0.1-1.30); MONOCYTES % (AUTO) 6.8 % (2.0-12.0); NEUTROPHILS % (AUTO) 80.8 % (43.0-81.0); PLATELET COUNT (AUTO) 203 K/uL (150-450); RED BLOOD CELL COUNT(AUTO) 4.38 MIL/uL (4.5-6.0); WHITE BLOOD COUNT (AUTO) 11.1 K/uL (4.3-11.0)
[2022-02-03 06:15] LABS: BILIRUBIN,DIRECT 0.1 mg/dL (0.0-0.2); BILIRUBIN,TOTAL 0.4 mg/dL (0.2-1.0); CALCIUM, SERUM 9.8 mg/dL (8.5-10.1); CREATININE 1.3 mg/dL (0.6-1.3); POTASSIUM 3.9 mmol/L (3.5-5.1); TOTAL PROTEIN, SERUM 7.7 g/dL (6.4-8.2)
--- NOTE | 2022-02-03 07:16 | NUR ---
EQUIPMENT TECH CLOSING NOTE PT REMAINS IN BED, OBTUNDED, NON-VERBAL. CONTINUES TO BE ON SAME VENT SETTINGS; TOLERATED VENT SETTINGS WELL. DURING TIME WHEN PT HAD INCREASED WORK OF BREATHING AND INCREASED RR, O2SAT DROPPED TO 80S%; PT REACTED TO ATIVAN WELL. ATTACHED TO EXTERNAL MONITOR, ST HR GOT HIGH HIGH 120S. GTD C/D/I GLUCERNA AT 80 ML/HR X20 HRS; GTF OFF AT 0400. VOLODYMYR MIDLINE INTACT AND PATENT, FLUSHES EASILY WITH NO RESISTANCE. OLVERA INTACT AND PATENT, DRAINING CLEAR AND YELLOW URINE. ALL DUE MEDS ADMINISTERED DURING THE NIGHT. BED IN LOWEST POSITION, CALL LIGHT WITHIN REACH, SIDE RAILS UP X3. WILL ENDORSE TO DAYSHIFT NURSE TO CONTINUE CARE.
[2022-02-03 08:00] VITALS: BP 112/76
--- NOTE | 2022-02-03 08:14 | NUR ---
RN OPENING PT IN BED VENT TRACH, RESPIRATORS ARE 32, PERSONNEL RECORDS CLERK NURSE ENDORSED EPISODES OF TACHYPNEA AND INCREASED RESPIRATORY EFFORT. PT ON CONTINUOUS PULSE OXIMETRY SAT 98%. TACHY C NOTED 109. ABX THERAPY TO CONTINUE. PT CONTRACTED OF THE ARMS AND LEGS DISCOLORATION NOTED ON BILATERALLY ON LEGS. PT IS OBTUNDED EYES OPEN, GAG AND COUGH REFLEX INTACT, PUPILS ARE PEARLA. NOTED DIAPHORESES, AFEBRILE. TKO FLUIDS RUNNING AT 10CC/HR. AM CARE GIVEN PT REPOSITIONED HOB ELEVATED TO 35 DEGREES BED LOCKED AND IN LOWEST POSITION.
[2022-02-03] MEDS: DOCUSATE SODIUM LIQ 100 MG/10 ML UDC GT SCH (09:01)
[2022-02-03] MEDS: CHLORHEXIDINE GLUCONATE 15 ML UDC MM SCH ×2 (09:01→18:02)
[2022-02-03] MEDS: CARVEDILOL 3.125 MG TABLET GT SCH ×2 (09:02→18:03)
[2022-02-03] MEDS: clonazePAM 0.5 MG TABLET GT SCH ×2 (09:02→21:17)
[2022-02-03] MEDS: ASCORBIC ACID 500 MG TABLET GT SCH (09:03)
[2022-02-03 12:00] VITALS: BP_SYST 110; BP_SYST 126; BP_DIAS 39; BP_DIAS 72
[2022-02-03] MEDS: GLUCERNA 1.2 1,000 ML BOTTLE NG PRN (14:38)
[2022-02-03] MEDS: VANCOMYCIN 1.25 GM in IV D5W 250 ML IV SCH (15:09)
[2022-02-03 16:00] VITALS: BP 126/72
[2022-02-03 20:00] VITALS: BP 114/72
--- NOTE | 2022-02-03 20:00 | NUR ---
RN NOTE RECEIVED PT WITH TRACH CONNECTED TO VENT. NOT IN ANY DISTRESS, APPEARS TO BE COMFORTABLE. GT PATENT AND IN PLACE, NO RESIDUALS NOTED. ON GLUCERNA FEEDING AT 80ML/HR, FLUSHES WITH WATER. OLVERA CATH DRAINING CLEAR YELLOW URINE, AFEBRILE, SINUS RHYTHM ON TELE MONITOR WITH HR 90. WILL CONTINUE TO MONITOR.
[2022-02-03] MEDS: SENNOSIDES 8.6 MG TABLET GT SCH (21:17)
[2022-02-04] VITALS: BP 118/85
[2022-02-04 04:00] VITALS: BP 131/84
[2022-02-04] MEDS: CEFEPIME 2 GM in IV D5W 100 ML IV SCH ×3 (04:46→20:11)
[2022-02-04] MEDS: LORAZEPAM INJ 2 MG/ML VIAL IV PRN ×2 (06:25→17:56)
--- NOTE | 2022-02-04 06:31 | NUR ---
RN NOTE PT RESPIRATION 40 ON VENT. HR 90S TO 110S. AFEBRILE, T 98.8. ATIVAN IVP GIVEN. WILL CONTINUE TO MONITOR.
[2022-02-04 06:38] LABS: BASOPHILS % (AUTO) 0.4 % (0.0-2.0); EOSINOPHILS % (AUTO) 6.9 % (0.0-6.0); HEMATOCRIT 40 % (39-51); HEMOGLOBIN 13.1 g/dL (13.5-17.5); LYMPHOCYTES # (AUTO) 1.4 K/uL (0.8-4.8); LYMPHOCYTES % (AUTO) 13.3 % (20.0-44.0); MEAN CORPUSCULAR HGB CONC 33 g/dl (31.0-36.0); MEAN CORPUSCULAR VOLUME 97 fL (80-96); MONOCYTES # (AUTO) 0.9 K/uL (0.1-1.30); MONOCYTES % (AUTO) 8.6 % (2.0-12.0); NEUTROPHILS # (AUTO) 7.2 K/uL (1.8-8.9); NEUTROPHILS % (AUTO) 70.8 % (43.0-81.0); PLATELET COUNT (AUTO) 200 K/uL (150-450); RED BLOOD CELL COUNT(AUTO) 4.09 MIL/uL (4.5-6.0); WHITE BLOOD COUNT (AUTO) 10.2 K/uL (4.3-11.0)
--- NOTE | 2022-02-04 07:25 | NUR ---
RN NOTE PT CALMED DOWN, RR NOW 18. HR 89. NO DISTRESS NOTED. GT FEEDING OFF AT 0400 TO BE TURNED ON AT 0800. ENDORSED TO AM SHIFT NURSE FOR ADAM.
[2022-02-04 07:28] LABS: CALCIUM, SERUM 9.4 mg/dL (8.5-10.1); CREATININE 1.3 mg/dL (0.6-1.3); MAGNESIUM 2.3 mg/dL (1.8-2.4); PHOSPHORUS 3.2 mg/dL (2.5-4.9); POTASSIUM 3.9 mmol/L (3.5-5.1)
--- NOTE | 2022-02-04 07:38 | NUR ---
RN NOTE PT RESTING IN BED, OBTUNDED.ON [facility] VENT ORDERED TOLERATING WELL. SHOWING SR-ST ON TELE MONITOR WITH HR AT 130'S. IV ACCESS ON RIGHT UPPER ARM. NO S/S INFILTRATION NOTED. GT INTACT WITH FEEDING GLUCERNA 1.2 @80CC.HR. FC DRAINING CLEAR YELLOW URINE. COVID PREC.
[2022-02-04 08:00] VITALS: BP 122/84
[2022-02-04] MEDS: CHLORHEXIDINE GLUCONATE 15 ML UDC MM SCH ×2 (08:31→16:57)
[2022-02-04] MEDS: DOCUSATE SODIUM LIQ 100 MG/10 ML UDC GT SCH (08:31)
[2022-02-04] MEDS: clonazePAM 0.5 MG TABLET GT SCH ×2 (08:31→20:11)
[2022-02-04] MEDS: ASCORBIC ACID 500 MG TABLET GT SCH (08:31)
[2022-02-04] MEDS: CARVEDILOL 3.125 MG TABLET GT SCH ×2 (08:32→16:57)
[2022-02-04 12:00] VITALS: BP 107/70
[2022-02-04 16:00] VITALS: BP 127/99
[2022-02-04] MEDS: GLUCERNA 1.2 1,000 ML BOTTLE NG PRN (17:42)
--- NOTE | 2022-02-04 18:47 | NUR ---
RN NOTE PT RESTING IN BED, OBTUNDED.ON [facility] VENT ORDERED TOLERATING WELL. SHOWING SR-ST ON TELE MONITOR WITH HR AT 130'S. IV ACCESS ON RIGHT UPPER ARM. NO S/S INFILTRATION NOTED. GT INTACT WITH FEEDING GLUCERNA 1.2 @80CC.HR. FC DRAINING CLEAR YELLOW URINE. COVID PREC. DUE MEDICATIONS GIVEN. AM/PM CARE DONE.
--- NOTE | 2022-02-04 18:47 | NUR ---
RN NOTE COVID 19 ANTIGEN SPECIMEN COLLECTED AND SENT TO LAB
[2022-02-04 20:00] VITALS: BP 158/80
--- NOTE | 2022-02-04 20:30 | NUR ---
RN NOTE PT DIAPHORETIC, RR IN 40S ON MECH VENT. HR IN 110-120, SINUS TACH. SCHEDULED CLONAZEPAM GIVEN ORDERED, GT PATENT AND INTACT ON GT FEEDING NO RESIDUALS NOTED. KEPT HOB ELEVATED. OLVERA DRAINING URINE BY GRAVITY. WILL CONTINUE TO MONITOR.
--- NOTE | 2022-02-04 22:00 | NUR ---
RN NOTE PT LOOKS MORE CALM. NO MORE DIAPHORESIS. RESPIRATION IN 20S. WILL CONTINUE TO MONITOR.
[2022-02-04] MEDS: SENNOSIDES 8.6 MG TABLET GT SCH (22:11)
[2022-02-05] VITALS: BP 145/93
[2022-02-05] MEDS: LORAZEPAM INJ 2 MG/ML VIAL IV PRN (00:05)
[2022-02-05 04:00] VITALS: BP 133/91
--- NOTE | 2022-02-05 05:25 | NUR ---
RN NOTE PT HAVING EPISODE OF DIAPHORESIS AGAIN, RESPIRATION IN 40S. HR 130S. O2 SAT AT 100%. ATIVAN NOT DUE YET. NOTIFIED ACCOUNTS PAYABLE PAYROLL COORDINATOR KING, WITH ORDER TO INCREASE ATIVAN DOSE TO 1MG IVP Q6H PRN.
[2022-02-05] MEDS: CEFEPIME 2 GM in IV D5W 100 ML IV SCH ×3 (05:34→20:39)
[2022-02-05] MEDS ORDERED: LORAZEPAM INJ 2 MG/ML VIAL IV PRN ×2 (05:40→10:00)
[2022-02-05 06:59] LABS: BASOPHILS # (AUTO) 0.1 K/uL (0.0-0.2); BASOPHILS % (AUTO) 0.4 % (0.0-2.0); EOSINOPHILS % (AUTO) 4.7 % (0.0-6.0); HEMATOCRIT 47 % (39-51); HEMOGLOBIN 15.4 g/dL (13.5-17.5); LYMPHOCYTES # (AUTO) 1.3 K/uL (0.8-4.8); LYMPHOCYTES % (AUTO) 10.3 % (20.0-44.0); MEAN CORPUSCULAR HGB CONC 33 g/dl (31.0-36.0); MEAN CORPUSCULAR VOLUME 96 fL (80-96); MONOCYTES # (AUTO) 1.1 K/uL (0.1-1.30); MONOCYTES % (AUTO) 8.9 % (2.0-12.0); NEUTROPHILS # (AUTO) 9.4 K/uL (1.8-8.9); NEUTROPHILS % (AUTO) 75.7 % (43.0-81.0); PLATELET COUNT (AUTO) 261 K/uL (150-450); RED BLOOD CELL COUNT(AUTO) 4.87 MIL/uL (4.5-6.0); WHITE BLOOD COUNT (AUTO) 12.5 K/uL (4.3-11.0)
--- NOTE | 2022-02-05 07:00 | NUR ---
INSTRUMENTATION AND CONTROLS DESIGNER OPENING NOTES: PATIENT IN BED , NO SIGNS OF RESPIRATORY DISTRESS, PATIENT STILL ON MECH VENT; SETTINGS PRESCRIBED. SAFETY MEASURES IMPLEMENTED, BED IN LOWEST POSITION, LOCKED, SIDE RAILS UP, CALL LIGHT WITHIN REACH. ALL NEEDS ATTENDED ,IV LT UPPER ARM MID LINE INTACT, SECURED AND FLUSHING WELL. PATIENT TOLERATED WELL. PATIENT KEPT CLEAN AND COMFORTABLE .ON G TUBE FEEDING ORDERED KEEP HOB ELEVATED AT ALL TIME , WILL CONT TO MONITOR
--- NOTE | 2022-02-05 07:00 | NUR ---
RN NOTE PT APPEARS TO BE CALM NOW. RR IN 20. NOT IN ANY DISTRESS. PT TOLERATES GT FEEDING. HOB REMAIN ELEVATED. OLVERA CATH DRAINING URINE BY GRAVITY, REMAIN AFEBRILE. WILL ENDORSE TO AM SHIFT NURSE FOR ADAM.
[2022-02-05 07:49] LABS: CALCIUM, SERUM 10.2 mg/dL (8.5-10.1); CREATININE 1.4 mg/dL (0.6-1.3); POTASSIUM 4.2 mmol/L (3.5-5.1)
[2022-02-05 08:00] VITALS: BP 171/116
[2022-02-05] MEDS: clonazePAM 0.5 MG TABLET GT SCH ×2 (08:30→20:40)
[2022-02-05] MEDS: CHLORHEXIDINE GLUCONATE 15 ML UDC MM SCH ×2 (08:31→17:21)
[2022-02-05] MEDS: ASCORBIC ACID 500 MG TABLET GT SCH (08:31)
[2022-02-05] MEDS: DOCUSATE SODIUM LIQ 100 MG/10 ML UDC GT SCH (08:31)
[2022-02-05] MEDS: CARVEDILOL 3.125 MG TABLET GT SCH ×2 (08:31→16:22)
[2022-02-05 12:00] VITALS: BP 144/98
[2022-02-05 16:00] VITALS: BP 178/114
[2022-02-05] MEDS: hydrALAZINE HCL IV 20 MG VIAL IV PRN (16:24)
--- NOTE | 2022-02-05 19:00 | NUR ---
RN NOTE PATIENT IN BED, OBTUNDED, IN NO ACUTE DISTRESS, ON PORTEX#9 TO MECHANICAL VENT WITH PRESCRIBED SETTINGS, SATURATION AT 98%, ST ON THE MONITOR HR IS 119. VOLODYMYR MIDLINE PATENT AND FLUSHING WELL, WITH NS AT TKO. OLVERA CATHETER DRAINING TO A CLEAR, YELLOW OUTPUT. SAFETY MEASURES IN PLACE, BED IS LOCKED AND AT LOWEST POSITION, HOB ELEVATED, WILL CONT TO MONITOR AND REASSESS.
[2022-02-05] MEDS: GLUCERNA 1.2 1,000 ML BOTTLE NG PRN (19:25)
--- NOTE | 2022-02-05 19:52 | NUR ---
mental telepathist closing notes: RN NOTE PT RESTING IN BED, [facility] ORDERED TOLERATING WELL. SHOWING SR-ST ON TELE MONITOR WITH HR AT 130'S. IV ACCESS ON RIGHT UPPER ARM. NO S/S INFILTRATION NOTED. GT INTACT WITH FEEDING GLUCERNA 1.2 @80CC.HR. FC DRAINING CLEAR YELLOW URINE. DUE MEDICATIONS GIVEN. bed kept in low and locked position, call light within reach,will endorse to commercial lines manager nurse for zaynab.
[2022-02-05 20:00] VITALS: BP 104/68
[2022-02-05] MEDS: ACETAMINOPHEN 325 MG TABLET PO PRN (20:12)
[2022-02-05] MEDS: SENNOSIDES 8.6 MG TABLET GT SCH (20:40)
[2022-02-06] VITALS (7 sets, daily range): BP systolic 112–159; BP diastolic 74–105
[2022-02-06] MEDS: CEFEPIME 2 GM in IV D5W 100 ML IV SCH ×3 (05:15→21:03)
[2022-02-06 06:58] LABS: CALCIUM, SERUM 9.8 mg/dL (8.5-10.1); CREATININE 1.3 mg/dL (0.6-1.3)
--- NOTE | 2022-02-06 07:52 | NUR ---
RN OPENING NOTES: PATIENT IN BED , NO SIGNS OF RESPIRATORY DISTRESS, PATIENT STILL ON MECH VENT; SETTINGS PRESCRIBED. NO SOB NOTED, NOT IN DISTRESS. NO FACIAL GRIMACING NOTED. IV LT UPPER ARM MID LINE INTACT, SECURED.ON G TUBE FEEDING, WILL TURN ON AT 0800H. KEEP HOB ELEVATED AT ALL TIME. ASPIRATION PRECAUTION MAINTAINED. ON TELE MONITORING WITH READING ST EA=075. F/C PATENT AND INTACT, DRAINING WITH CLEAR YELLOW URINE. LEFT HEEL BLISTER DRESSING C/D/I. SAFETY MEASURES CONTINUED. CALL LIGHT WITHIN REACH. WILL CONTINUE PLAN OF CARE.
[2022-02-06] MEDS: CHLORHEXIDINE GLUCONATE 15 ML UDC MM SCH ×2 (08:12→16:09)
[2022-02-06] MEDS: ASCORBIC ACID 500 MG TABLET GT SCH (08:12)
[2022-02-06] MEDS: clonazePAM 0.5 MG TABLET GT SCH ×2 (08:12→21:03)
[2022-02-06] MEDS: DOCUSATE SODIUM LIQ 100 MG/10 ML UDC GT SCH (08:12)
[2022-02-06] MEDS: CARVEDILOL 3.125 MG TABLET GT SCH ×2 (08:14→16:10)
--- NOTE | 2022-02-06 10:24 | NUR ---
WOUND CARE CONSULT: RECEIVED CONSULT FOR RASH ON UPPER EXTREMITIES AND TORSO,UNKNOWN ETIOLOGY. DEFER TO PMD. DISCUSSED WITH SURGICAL TEAM AND NURSING STAFF.
[2022-02-06] MEDS: GLUCERNA 1.2 1,000 ML BOTTLE NG PRN (16:09)
--- NOTE | 2022-02-06 18:30 | NUR ---
NETWORK LEAD NOTES: PT RESTING IN BED, OBTUNDED.ON [facility] VENT ORDERED TOLERATING WELL. ON TELE MONITORING WITH READING OF SR HR=92. IV ACCESS ON RIGHT UPPER ARM, PATENT AND INTACT, FLUSHES WELL, NO S/S INFILTRATION NOTED. GT PATENT AND INTACT WITH FEEDING GLUCERNA 1.2 @80ML/HR, TOLERATING WELL, NO N/V/D NOTED. FC DRAINING 500CC CLEAR YELLOW URINE. CALL LIGHT WITHIN REACH. BED IN LOWEST POSITION. SAFETY MEASURES CONTINUED. WILL ENDORSE TO LAMP INSPECTOR NURSE FOR ADAM.
--- NOTE | 2022-02-06 20:00 | NUR ---
RN OPENING NOTE PT FOUND LAYING IN BED SUPINE. PT IS AWAKE BUT UNABLE TO ASSESS ORIENTATION DUE TO BEING NONVERBAL AND OBTUNDED. RESPIRATIONS EVEN AND UNLABORED ON MECHANICAL VENT. O2 SAT OF 99%. NO ACUTE SIGNS OF DISTRESS AT THIS TIME. IN LINE SUCTIONED, ORAL CARE, AND POSITION CHANGE PERFORMED, PT TOLERATED WELL. SAFETY MEASURES IN PLACE.
--- NOTE | 2022-02-06 20:18 | NUR ---
PT RCVD TRACHED [facility] SIZE PORTEX 9 [facility] WITH THE SETTINGS OF AC 16,VT 450,FIO2 40%,PEEP 5. PT IS AWAKE AND NON VERBAL. SUCTIONED SMALL AMOUNT OF KING THICK SECRETIONS. DITCH WORKER DONE,TRACH IS PATENT AND SECURED. VENT PLUGGED INTO RED OUTLET AND VENT ALARMS ON AND AUDIBLE. NO RESPIRATORY DISTRESS NOTED AT THIS TIME. WILL CONTINUE TO MONITOR T/O SHIFT.
[2022-02-06] MEDS: HYDROCORTISONE 1% CREAM 28.35 GM TUBE TP SCH (21:00)
[2022-02-06] MEDS: SENNOSIDES 8.6 MG TABLET GT SCH (21:04)
--- NOTE | 2022-02-06 22:00 | NUR ---
RN NOTE HYDROCORTISONE 1% ORDERED AT 2058 NON ADMINISTERED DRUG IS NOT AVAILABLE IN [facility], WILL FOLLOW UP WITH PHARMACY IN AM.
[2022-02-07] VITALS: BP 142/90
[2022-02-07 04:00] VITALS: BP 129/86
[2022-02-07] MEDS: CEFEPIME 2 GM in IV D5W 100 ML IV SCH ×3 (04:43→20:10)
[2022-02-07 06:32] LABS: BASOPHILS # (AUTO) 0.1 K/uL (0.0-0.2); BASOPHILS % (AUTO) 0.4 % (0.0-2.0); EOSINOPHILS % (AUTO) 6.7 % (0.0-6.0); HEMATOCRIT 43 % (39-51); HEMOGLOBIN 14.2 g/dL (13.5-17.5); LYMPHOCYTES # (AUTO) 1.7 K/uL (0.8-4.8); LYMPHOCYTES % (AUTO) 11.9 % (20.0-44.0); MEAN CORPUSCULAR HGB CONC 33 g/dl (31.0-36.0); MEAN CORPUSCULAR VOLUME 96 fL (80-96); NEUTROPHILS # (AUTO) 10.6 K/uL (1.8-8.9); PLATELET COUNT (AUTO) 276 K/uL (150-450); RED BLOOD CELL COUNT(AUTO) 4.48 MIL/uL (4.5-6.0); WHITE BLOOD COUNT (AUTO) 14.3 K/uL (4.3-11.0)
[2022-02-07 07:08] LABS: CALCIUM, SERUM 9.7 mg/dL (8.5-10.1); CREATININE 1.2 mg/dL (0.6-1.3); POTASSIUM 4.2 mmol/L (3.5-5.1)
--- NOTE | 2022-02-07 07:59 | NUR ---
RN OPENING NOTES: PT IN BED.PT IS OBTUNDED. PT WITH MECHANICAL VENTILATOR WITH ORDERED SETTINGS TOLERATING WELL.NO SIGNS OF PAIN OR DISCOMOFRT. PT HAS VOLODYMYR MIDLINE, INTACT, PATENT AND FLUSHING WELL. PT ON GTUBE FEEDING. GLUCERNA @ 80 ML/HR. PT ON TELE MONITOR WITH SR AND HEAD OF BED ELEVATED AT ALL TIMES.PT HAS OLVERA CATHETHER.YELLOW COLOR DRAINING TO GRAVITY. PT LEFT HEEL BLIISTER.ALL SAFEY MEASURES IN PLACE. CALL LIGHT WITHIN REAC. BED LOCKED AT LOWEST POSITION. SIDE RAILS UP X2.
[2022-02-07 08:28] VITALS: BP 149/105
[2022-02-07] MEDS: DOCUSATE SODIUM LIQ 100 MG/10 ML UDC GT SCH (09:24)
[2022-02-07] MEDS: ASCORBIC ACID 500 MG TABLET GT SCH (09:25)
[2022-02-07] MEDS: clonazePAM 0.5 MG TABLET GT SCH ×2 (09:25→20:10)
[2022-02-07] MEDS: CHLORHEXIDINE GLUCONATE 15 ML UDC MM SCH ×2 (09:25→17:06)
[2022-02-07] MEDS: CARVEDILOL 3.125 MG TABLET GT SCH ×2 (09:25→17:06)
[2022-02-07] MEDS: GLUCERNA 1.2 1,000 ML BOTTLE NG PRN (10:43)
[2022-02-07] MEDS: HYDROCORTISONE 1% CREAM 28.35 GM TUBE TP SCH ×2 (10:55→17:06)
[2022-02-07 12:00] VITALS: BP 144/101
[2022-02-07 16:00] VITALS: BP 129/85
--- NOTE | 2022-02-07 18:44 | NUR ---
RN CLOSING NOTES: PT IN BED.PT IS OBTUNDED. PT WITH MECHANICAL VENTILATOR WITH ORDERED SETTINGS TOLERATING WELL.NO SIGNS OF PAIN OR DISCOMFORT. PT HAS VOLODYMYR MIDLINE, INTACT, PATENT AND FLUSHING WELL. PT ON GTUBE FEEDING. GLUCERNA @ 80 ML/HR. PT ON TELE MONITOR WITH SINUS RHYTHM/SINUS TACHY 102, HEAD OF BED ELEVATED AT ALL TIMES.PT HAS OLVERA CATHETER.YELLOW COLOR DRAINING TO GRAVITY. PT LEFT HEEL BLISTER.KEPT CLEAN AND DRY. ALL SAFELY MEASURES IN PLACE. CALL LIGHT WITHIN REACH. BED LOCKED AT LOWEST POSITION. SIDE RAILS UP X2.
--- NOTE | 2022-02-07 19:15 | NUR ---
RN NOTE PATIENT IN BED, OBTUNDED, IN NO ACUTE DISTRESS, ON PORTEX#9 TO MECHANICAL VENT WITH PRESCRIBED SETTINGS, SATURATION AT 99%, ST ON THE MONITOR HR IS 107. VOLODYMYR MIDLINE PATENT AND FLUSHING WELL, WITH NS AT TKO. OLVERA CATHETER DRAINING TO A CLEAR, YELLOW OUTPUT. SAFETY MEASURES IN PLACE, BED IS LOCKED AND AT LOWEST POSITION, HOB ELEVATED, WILL CONT TO MONITOR AND REASSESS.
[2022-02-07 20:00] VITALS: BP 124/89
[2022-02-07] MEDS: SENNOSIDES 8.6 MG TABLET GT SCH (20:11)
[2022-02-08] VITALS: BP 116/74
[2022-02-08] MEDS: GLUCERNA 1.2 1,000 ML BOTTLE NG PRN (01:46)
[2022-02-08 04:00] VITALS: BP 115/78
[2022-02-08] MEDS: CEFEPIME 2 GM in IV D5W 100 ML IV SCH (05:20)
[2022-02-08 06:04] LABS: BASOPHILS % (AUTO) 0.2 % (0.0-2.0); EOSINOPHILS % (AUTO) 6.6 % (0.0-6.0); HEMATOCRIT 40 % (39-51); HEMOGLOBIN 13.2 g/dL (13.5-17.5); LYMPHOCYTES # (AUTO) 1.4 K/uL (0.8-4.8); LYMPHOCYTES % (AUTO) 11.3 % (20.0-44.0); MEAN CORPUSCULAR HGB CONC 33 g/dl (31.0-36.0); MEAN CORPUSCULAR VOLUME 96 fL (80-96); MONOCYTES # (AUTO) 0.7 K/uL (0.1-1.30); MONOCYTES % (AUTO) 5.9 % (2.0-12.0); NEUTROPHILS # (AUTO) 9.6 K/uL (1.8-8.9); PLATELET COUNT (AUTO) 292 K/uL (150-450); RED BLOOD CELL COUNT(AUTO) 4.19 MIL/uL (4.5-6.0); WHITE BLOOD COUNT (AUTO) 12.7 K/uL (4.3-11.0)
[2022-02-08 06:40] LABS: CALCIUM, SERUM 9.5 mg/dL (8.5-10.1); CREATININE 1.2 mg/dL (0.6-1.3); MAGNESIUM 2.5 mg/dL (1.8-2.4); PHOSPHORUS 2.1 mg/dL (2.5-4.9); POTASSIUM 3.9 mmol/L (3.5-5.1)
--- NOTE | 2022-02-08 07:25 | NUR ---
RN OPENING NOTE RECEIVED PATIENT IN BED, OBTUNDED , NO S/SX OF ACUTE DISTRESS AT THIS TIME. REMAINS WITH TRACH TO MECHANICAL VENT. WITH CURRENT SETTINGS: AC 16, TV 450, FIO2 40%, PEEP 5, WITH 02 SATURATION @ 100%. NO SOB NOTED, RESPIRATION EVEN AND UNLABORED. ON TELE MONITOR SHOWING ST, HR @114. NO S/SX OF PAIN OR DISCOMFORT. NOTED WITH IV ACCESS ON VOLODYMYR MIDLINE, INTACT AND PATENT, SL. WITH G-TUBE INTACT AND PATENT, PLACEMENT CHECKED. WITH GT FEEDING OF GLUCERNA @80 ML/HR RUNNING. SAFETY MEASURE IN PLACE. BED IN LOWEST AND LOCKED POSITION, SIDE RAILS UP X2, CALL LIGHT PLACED WITHIN EASY REACH. WILL CONTINUE TO MONITOR PATIENT.
[2022-02-08 08:00] VITALS: BP 117/81
[2022-02-08] MEDS: ASCORBIC ACID 500 MG TABLET GT SCH (08:34)
[2022-02-08] MEDS: CHLORHEXIDINE GLUCONATE 15 ML UDC MM SCH ×2 (08:34→16:51)
[2022-02-08] MEDS: clonazePAM 0.5 MG TABLET GT SCH ×2 (08:34→22:04)
[2022-02-08] MEDS: DOCUSATE SODIUM LIQ 100 MG/10 ML UDC GT SCH (08:34)
[2022-02-08] MEDS: CARVEDILOL 3.125 MG TABLET GT SCH ×2 (08:35→16:51)
[2022-02-08] MEDS: HYDROCORTISONE 1% CREAM 28.35 GM TUBE TP SCH ×2 (08:35→16:52)
[2022-02-08] MEDS ORDERED: NEUTRA PHOS 1 POWD.PACKET GT ONE (11:00)
[2022-02-08 12:00] VITALS: BP 139/91
[2022-02-08 16:00] VITALS: BP 137/92
--- NOTE | 2022-02-08 18:46 | NUR ---
RN CLOSING NOTES PATIENT LAYING IN BED, OBTUNDED , NO S/SX OF ACUTE DISTRESS AT THIS TIME. REMAINS WITH TRACH TO MECHANICAL VENT. WITH CURRENT SETTINGS: AC 16, TV 450, FIO2 40%, PEEP 5, WITH 02 SATURATION @ 100%. NO SOB NOTED, RESPIRATION EVEN AND UNLABORED. ON TELE MONITOR SHOWING SR, HR @86. NO S/SX OF PAIN OR DISCOMFORT. WITH IV ACCESS ON VOLODYMYR MIDLINE, INTACT AND PATENT, SL. WITH G-TUBE FEEDING OF GLUCERNA @80 ML/HR RUNNING, TOLERATED WELL. F/C INTACT, DRAINING LUCIA COLORED URINE. SAFETY MEASURE MAINTAINED. BED IN LOWEST AND LOCKED POSITION, SIDE RAILS UP X2, CALL LIGHT PLACED WITHIN EASY REACH. WILL ENDORSE TO NEXT SHIFT FOR ADAM.
--- NOTE | 2022-02-08 19:30 | NUR ---
RECEIVED PATIENT IN BED, OBTUNDED , NO S/SX OF ACUTE DISTRESS AT THIS TIME. REMAINS WITH TRACH TO MECHANICAL VENT. WITH CURRENT SETTINGS: AC 16, TV 450, FIO2 40%, PEEP 5, WITH 02 SATURATION @ 100%. NO SOB NOTED, RESPIRATION EVEN AND UNLABORED. ON TELE MONITOR SHOWING SR, HR @90'S. NO S/SX OF PAIN OR DISCOMFORT. NOTED WITH IV ACCESS ON VOLODYMYR MIDLINE, ON SL. WITH G-TUBE INTACT AND PATENT, PLACEMENT CHECKED. WITH GT FEEDING OF GLUCERNA @80 ML/HR INFUSING SAFETY MEASURE IN PLACE. HOB SLIGHTLY ELEVATED. BED IN LOWEST AND LOCKED POSITION, SIDE RAILS UP X2, CALL LIGHT PLACED WITHIN EASY REACH. WILL CONTINUE PLAN OF CARE.
[2022-02-08 20:00] VITALS: BP 140/93
[2022-02-08] MEDS: ACETAMINOPHEN 650 MG/20.3 ML UDC GT PRN (22:03)
[2022-02-08] MEDS: SENNOSIDES 8.6 MG TABLET GT SCH (22:03)
[2022-02-09] VITALS: BP 154/106
[2022-02-09] MEDS: GLUCERNA 1.2 1,000 ML BOTTLE NG PRN ×2 (02:18→09:25)
[2022-02-09] MEDS: hydrALAZINE HCL IV 20 MG VIAL IV PRN (03:56)
[2022-02-09 04:00] VITALS: BP 162/102
--- NOTE | 2022-02-09 06:50 | NUR ---
PATIENT IN BED, OBTUNDED , NO S/SX OF ACUTE DISTRESS AT THIS TIME. REMAINS WITH TRACH TO MECHANICAL VENT. WITH CURRENT SETTINGS: AC 16, TV 450, FIO2 40%, PEEP 5, WITH 02 SATURATION @ 100%. NO SOB NOTED, RESPIRATION EVEN AND UNLABORED. ON TELE MONITOR SHOWING SR, HR @90'S. NO S/SX OF PAIN OR DISCOMFORT. NOTED WITH IV ACCESS ON VOLODYMYR MIDLINE, ON SL. WITH G-TUBE INTACT AND PATENT, PLACEMENT CHECKED. WITH GT FEEDING OF GLUCERNA @80 ML/HR INFUSING SAFETY MEASURES MAINTAINED. HOB SLIGHTLY ELEVATED. BED IN LOWEST AND LOCKED POSITION, SIDE RAILS UP X2, CALL LIGHT PLACED WITHIN EASY REACH. WILL ENDORSE TO NEXT NURSE ON DUTY FOR CONTINUITY OF CARE.
--- NOTE | 2022-02-09 07:30 | NUR ---
RN OPENING NOTES: PT IN BED.PT IS OBTUNDED. PT WITH MECHANICAL VENTILATOR WITH ORDERED SETTINGS TOLERATING WELL.NO SIGNS OF PAIN OR DISCOMFORT. PT HAS VOLODYMYR MIDLINE, INTACT, PATENT AND FLUSHING WELL. PT ON GTUBE FEEDING. GLUCERNA @ 80 ML/HR. NO RESIDUAL VOLUME NOTED. PT ON TELE MONITOR WITH SR AND HEAD OF BED ELEVATED AT ALL TIMES.PT HAS OLVERA CATHETER.YELLOW COLOR DRAINING TO GRAVITY. PT LEFT HEEL BLISTER.ALL SAFETY MEASURES IN PLACE. CALL LIGHT WITHIN REACH. BED LOCKED AT LOWEST POSITION. SIDE RAILS UP X2.
[2022-02-09 07:33] LABS: CALCIUM, SERUM 9.7 mg/dL (8.5-10.1); CREATININE 1.2 mg/dL (0.6-1.3); MAGNESIUM 2.5 mg/dL (1.8-2.4); PHOSPHORUS 3.5 mg/dL (2.5-4.9); POTASSIUM 3.8 mmol/L (3.5-5.1)
[2022-02-09 07:38] LABS: BASOPHILS % (AUTO) 0.3 % (0.0-2.0); EOSINOPHILS % (AUTO) 6.6 % (0.0-6.0); HEMATOCRIT 41 % (39-51); HEMOGLOBIN 13.6 g/dL (13.5-17.5); LYMPHOCYTES # (AUTO) 1.6 K/uL (0.8-4.8); LYMPHOCYTES % (AUTO) 13.5 % (20.0-44.0); MEAN CORPUSCULAR HGB CONC 34 g/dl (31.0-36.0); MEAN CORPUSCULAR VOLUME 96 fL (80-96); MONOCYTES # (AUTO) 0.7 K/uL (0.1-1.30); MONOCYTES % (AUTO) 5.4 % (2.0-12.0); NEUTROPHILS % (AUTO) 74.2 % (43.0-81.0); PLATELET COUNT (AUTO) 324 K/uL (150-450); RED BLOOD CELL COUNT(AUTO) 4.22 MIL/uL (4.5-6.0); WHITE BLOOD COUNT (AUTO) 12.1 K/uL (4.3-11.0)
[2022-02-09 08:00] VITALS: BP 130/78
[2022-02-09] MEDS: clonazePAM 0.5 MG TABLET GT SCH (08:40)
[2022-02-09] MEDS: ASCORBIC ACID 500 MG TABLET GT SCH (08:40)
[2022-02-09] MEDS: CARVEDILOL 3.125 MG TABLET GT SCH (08:40)
[2022-02-09] MEDS: DOCUSATE SODIUM LIQ 100 MG/10 ML UDC GT SCH (08:40)
[2022-02-09] MEDS: CHLORHEXIDINE GLUCONATE 15 ML UDC MM SCH (08:41)
[2022-02-09] MEDS ORDERED: CARV3.122 GT (10:34)
[2022-02-09 12:00] VITALS: BP 117/69
[2022-02-09] MEDS: HYDROCORTISONE 1% CREAM 28.35 GM TUBE TP SCH (12:24)
--- NOTE | 2022-02-09 14:50 | NUR ---
rn note called [facility] gave report to Avelina RODRIGUEZ and endorsed that ambulance will be picked up at 3pm
--- NOTE | 2022-02-09 16:10 | NUR ---
rn note pt discharged. ambulance picked up pt with respiratory therapist. removed pt midline. gave report to ambulance.pt stable condition
== END 2022-02-09 17:00 | DRG 720 ==
LOC: ER 09:17 → TELE1 16:07
PROVIDERS: ADMIT Internal Medicine; ATTEND Internal Medicine
PROC: 5A1955Z Respiratory Ventilation, Greater than 96 Consecutive Hours (ICD-10-PCS; principal; 2022-01-27)
PROC: XW033E5 Introduction of Remdesivir Anti-infective into Peripheral Vein, Percutaneous Approach, New Technology Group 5 (ICD-10-PCS; 2022-01-28)
PROC: 05H933Z Insertion of Infusion Device into Right Brachial Vein, Percutaneous Approach (ICD-10-PCS; 2022-02-01)
DX: A41.89 Other specified sepsis (principal); N17.0 Acute kidney failure with tubular necrosis; J96.21 Acute and chronic respiratory failure with hypoxia; J12.82 Pneumonia due to coronavirus disease 2019; G93.41 Metabolic encephalopathy; L89.156 Pressure-induced deep tissue damage of sacral region; J15.9 Unspecified bacterial pneumonia; U07.1 COVID-19; L89.626 Pressure-induced deep tissue damage of left heel; E87.0 Hyperosmolality and hypernatremia; E83.39 Other disorders of phosphorus metabolism; Z99.11 Dependence on respirator [ventilator] status; G93.1 Anoxic brain damage, not elsewhere classified; Z86.74 Personal history of sudden cardiac arrest; Z93.1 Gastrostomy status; Z93.0 Tracheostomy status; R13.10 Dysphagia, unspecified; F41.9 Anxiety disorder, unspecified; D75.1 Secondary polycythemia; R29.3 Abnormal posture; Z79.01 Long term (current) use of anticoagulants; Z79.51 Long term (current) use of inhaled steroids; Z79.899 Other long term (current) drug therapy; Y95 Nosocomial condition; E83.42 Hypomagnesemia; E87.6 Hypokalemia; I11.9 Hypertensive heart disease without heart failure; I25.2 Old myocardial infarction; B96.89 Other specified bacterial agents as the cause of diseases classified elsewhere
CPT/HCPCS: 31720; 36410; 36415; 36600; 71045-TC; 80048-TC; 80076-TC; 80202-TC; 81001; 82803-TC; 82962-TC; 83605-TC; 83735-TC; 83880; 84100-TC; 84484-TC; 85025-TC; 85378-TC; 85610-TC; 85730-TC; 86140-TC; 87040-TC; 87070-TC; 87081-TC; 87086-TC; 87186-TC; 93307-TC; 93971-TC; 94003-TC; 94640-TC; 94760-TC; 94762-TC; 94799-TC; A4623; A7526; C9803; G0378; J0360; J0692; J1100; J1642; J1644; J2060; J2543; J3370; J3490; J7030; J7050; J7060; Q9967; U0003

== ENCOUNTER 2022-02-15 16:08 | Inpatient (IN) | payer OTHER ==
[~2022-02-15] VITALS: Ht 180.3 cm; Wt 89.8 kg
[~2022-02-15 16:08] MED LIST: ACET-2605 GT; ACET-868 GT; ASCO-352 GT; CARV3.122 GT; CHLO473M5 MM; CLON0.1T GT; CLON0.5T4 GT; DOCU-141 GT; ENOX40DI SQ; IPRA4AER IH; MULT-447 GT; NUT.237L30 GT; NYST15CR TP; POVI3780 TP; SENN-261 GT; ZINC220C6 GT
--- NOTE | 2022-02-15 16:25 | NUR ---
RT Vent trach patient received via EMS. Current vent settings provided by RT from facility: AC 16 450 40% +5. Portex 9 cuffed trach tube secure and patent. Suctioned small amount of thick yellow atkinson secretions. Vent plugged into red outlet with alarms on and audible. Ambu bag and back up trach at bedside.
[2022-02-15] MEDS ORDERED: PIPERACILLIN /TAZOBACTAM 3.375 G in IV D5W 50 ML IV ONE (16:30)
[2022-02-15] MEDS ORDERED: IV NS 0.9% 1,000 ML BAG IV ONE (16:30)
[2022-02-15] MEDS ORDERED: ACETAMINOPHEN 650 MG/SUPP.RECT RC ONE ×2 (16:38→17:00)
--- NOTE | 2022-02-15 16:40 | NUR ---
NATURALIZATION EXAMINER AT BEDSIDE FOR BLOOD DRAW
--- NOTE | 2022-02-15 16:45 | NUR ---
RT AT BEDSIDE
--- NOTE | 2022-02-15 16:47 | NUR ---
PATIENT IS HARDSTICK, CALLED NURSE SUP FOR MIDLINE, ETA 45MINS
[2022-02-15] MEDS ORDERED: CARV12.52 GT (16:50)
--- NOTE | 2022-02-15 17:20 | NUR ---
IV ESTABLISHED R UPPER ARM 18G. LABS DRAWN AND COLLECTED AT BEDSIDE
[2022-02-15 18:01] LABS: CALCIUM, SERUM 10.1 mg/dL (8.5-10.1); CARBON DIOXIDE 32 mmol/L (21-32); CHLORIDE 99 mmol/L (98-107); CREATININE 1.2 mg/dL (0.6-1.3); GLUCOSE 125 mg/dL (74-106); POTASSIUM 4.4 mmol/L (3.5-5.1); SODIUM SERUM 141 mmol/L (136-145); UREA NITROGEN, BLOOD 32 mg/dL (7-18)
[2022-02-15 18:13] LABS: ALANINE AMINOTRANSFERASE 56 U/L (12-78); ALBUMIN 3.8 g/dL (3.4-5.0); ALKALINE PHOSPHATASE 88 U/L (46-116); ASPARTATE AMINOTRANSFERASE 31 U/L (15-37); BILIRUBIN,DIRECT 0.2 mg/dL (0.0-0.2); BILIRUBIN,TOTAL 0.7 mg/dL (0.2-1.0)
--- NOTE | 2022-02-15 19:41 | NUR ---
16FR FOLER INSERTED, 50CC URINE OUTPUT INITIALLY, URINE IS YELLOW AND CLEAR. URINE COLLECTED AND SENT.
[2022-02-15 19:42] LABS: BASOPHILS % (AUTO) 0.2 % (0.0-2.0); HEMATOCRIT 44 % (39-51); HEMOGLOBIN 14.5 g/dL (13.5-17.5); LYMPHOCYTES # (AUTO) 1.2 K/uL (0.8-4.8); LYMPHOCYTES % (AUTO) 9.6 % (20.0-44.0); MEAN CORPUSCULAR HGB CONC 33 g/dl (31.0-36.0); MEAN CORPUSCULAR VOLUME 96 fL (80-96); MONOCYTES # (AUTO) 0.7 K/uL (0.1-1.30); MONOCYTES % (AUTO) 5.5 % (2.0-12.0); NEUTROPHILS # (AUTO) 10.2 K/uL (1.8-8.9); NEUTROPHILS % (AUTO) 79.7 % (43.0-81.0); PLATELET COUNT (AUTO) 337 K/uL (150-450); RED BLOOD CELL COUNT(AUTO) 4.56 MIL/uL (4.5-6.0); WHITE BLOOD COUNT (AUTO) 12.8 K/uL (4.3-11.0)
--- NOTE | 2022-02-15 19:52 | NUR ---
RECEIVED PT IN ROOM 8, PT IS AAOX0, RESTING IN BED WITH EYES OPEN. DOES NOT RESPOND TO PAIN. ON VENT, SETTINGS: 40%FiO2 450VT/16RATE FLOW 30. OLVERA AND G TUBE NOTED INTACT. CONNECTED TO POX AND HEART MONITOR. VITAL SIGNS WITHIN LIMITS. WILL CONTINUE TO MONITOR
[2022-02-15 21:11] LABS: BILIRUBIN,URINE NEGATIVE (NEGATIVE); COLOR,URINE YELLOW (YELLOW); LEUKOCYTE ESTERASE ,URINE NEGATIVE (NEGATIVE); NITRITE, URINE NEGATIVE (NEGATIVE); PH,URINE 6.5 (5.0-8.0); PROTEIN,URINE 2+ mg/dl (NEGATIVE); UGLUCOSE NEGATIVE (NEGATIVE); UROBILINOGEN,URINE 0.2 EU/dL (0.2)
[2022-02-15] MEDS ORDERED: ONDANSETRON HCL/PF 4 MG/2 ML VIAL IVP PRN (21:30)
[2022-02-15 21:40] LABS: RBC,URINE 0-2 /HPF (0-2)
[2022-02-15 21:41] LABS: BACTERIA,URINE RARE /HPF (None Seen); MUCUS,URINE Few /LPF (None Seen)
[2022-02-15] MEDS ORDERED: CARVEDILOL 12.5 MG TABLET PO ONE (22:30)
[2022-02-15] MEDS ORDERED: ZOSYN IVPB 3.375 G in IV D5W 50ml IV SCH (23:00)
[2022-02-15] MEDS: ENOXAPARIN SODIUM 40 MG/0.4 ML DISP.SYRIN SQ SCH (23:00)
--- NOTE | 2022-02-15 23:05 | NUR ---
ELEVATED BP203/32 AND HR 130 , NOTIFIED RAMANA DRAKE
[2022-02-15] MEDS ORDERED: ENOXAPARIN SODIUM 40 MG/0.4 ML DISP.SYRIN SQ ONE (23:10)
[2022-02-15] MEDS ORDERED: CARVEDILOL 12.5 MG TABLET ONE (23:11)
--- NOTE | 2022-02-15 23:30 | NUR ---
CALLED TO GIVE REPORT, EDGAR RODRIGUEZ NOT AVAILABLE
--- NOTE | 2022-02-15 23:48 | NUR ---
REPORT GIVEN TO EDGAR RODRIGUEZ FOR ADAM
[2022-02-16] VITALS: BP 191/128
[2022-02-16] MEDS ORDERED: Medication Not On Formulary EA (Ipratropium/Albuterol Sulfate (Combivent Respimat 20-100 IH SCH
--- NOTE | 2022-02-16 00:05 | NUR ---
NAIL CUTTER NOTES: RECEIVED REPORT FROM SUNI FROM ER. PT TRANSFERRED TO [facility] VIA STRETCHER, PLACED IN ROOM 113 BED 2. ON TRACH TO [facility] VENT SETTING: AC-16, TV-450, FIO2 40, PEEP-5. O2 SAT 100%. IV ACCESS ON VOLODYMYR#18G AND KIAH MIDLINE#18 G INTACT AND PATENT. NO S/S OF INFILTRATIONS. WILL START NS AT 75CC/HR. BODY ASSESSMENT DONE. NOTED SCATTERED RASHES ON BOTH HANDS, BOTH LOWER ABDOMEN SITE AND RT HIP. NOTED LEFT HEEL WITH DTI. NO FACIAL GRIMACING NOTED. NO ACUTE DISTRESS. ALL SAFETY MEASURES IN PLACE. BED IN LOWEST POSITION AND LOCKED. SIDE RAILS UP X3, PLACE CALL LIGHT WITH IN REACH. WILL CONTINUE TO MONITOR
[2022-02-16] MEDS ORDERED: PIPERACILLIN /TAZOBACTAM 3.375 G VIAL IV ONE ×2 (01:06→05:17)
[2022-02-16] MEDS: SENNOSIDES 8.6 MG TABLET GT SCH ×2 (01:11→22:29)
[2022-02-16] MEDS: IV NS 0.9% 1,000 ML IV PRN ×2 (01:22→18:28)
[2022-02-16] MEDS: GLUCERNA 1.2 1,000 ML BOTTLE NG PRN (03:13)
[2022-02-16 04:00] VITALS: BP 118/83
[2022-02-16] MEDS ORDERED: PIPERACILLIN /TAZOBACTAM 3.375 G in IV D5W 50 ML IV SCH (06:00)
[2022-02-16 06:36] LABS: BASOPHILS % (AUTO) 0.3 % (0.0-2.0); EOSINOPHILS % (AUTO) 4.9 % (0.0-6.0); HEMATOCRIT 39 % (39-51); HEMOGLOBIN 12.9 g/dL (13.5-17.5); LYMPHOCYTES # (AUTO) 1.3 K/uL (0.8-4.8); MEAN CORPUSCULAR HGB CONC 34 g/dl (31.0-36.0); MEAN CORPUSCULAR VOLUME 96 fL (80-96); MONOCYTES # (AUTO) 0.6 K/uL (0.1-1.30); MONOCYTES % (AUTO) 5.9 % (2.0-12.0); NEUTROPHILS # (AUTO) 8.3 K/uL (1.8-8.9); NEUTROPHILS % (AUTO) 76.9 % (43.0-81.0); PLATELET COUNT (AUTO) 266 K/uL (150-450); RED BLOOD CELL COUNT(AUTO) 4.02 MIL/uL (4.5-6.0); WHITE BLOOD COUNT (AUTO) 10.7 K/uL (4.3-11.0)
[2022-02-16 06:48] LABS: CALCIUM, SERUM 9.5 mg/dL (8.5-10.1); CREATININE 1.1 mg/dL (0.6-1.3); MAGNESIUM 2.3 mg/dL (1.8-2.4); PHOSPHORUS 4.5 mg/dL (2.5-4.9); POTASSIUM 3.6 mmol/L (3.5-5.1)
[2022-02-16] MEDS: ALBUTEROL FS 2.5 MG/0.5 ML VIAL.NEB NEB SCH ×4 (07:35→20:17)
[2022-02-16] MEDS: IPRATROPIUM NEB FS 0.5 MG/2.5 ML AMPUL.NEB IH SCH ×4 (07:35→20:17)
--- NOTE | 2022-02-16 07:55 | NUR ---
RN NOTE PT RECEIVED IN BED, OBTUNDED. WITH TRACH IN PLACE AND VENT SETTINGS TOLERATED WELL. PT NOT IN RESPI DISTRESS. OLVERA CATH IN PLACE, DRAINING WELL. WITH IV ACCESS ON VOLODYMYR G18 AND KIAH MIDLINE IN PLACE WITH IVF NS @75/HR. GT FEEDING GLUCERNA 1.2 @ 80CCHR. ASPIRATION PREC MAINTAINED. WILL CONT TO MONITOR.
[2022-02-16 08:00] VITALS: BP 134/84
[2022-02-16] MEDS: CHLORHEXIDINE GLUCONATE 15 ML UDC MM SCH ×2 (09:40→18:26)
[2022-02-16] MEDS: DOCUSATE SODIUM 100 MG CAPSULE PO SCH (09:40)
[2022-02-16] MEDS: CARVEDILOL 12.5 MG TABLET GT SCH ×2 (09:41→22:30)
[2022-02-16] MEDS: ASCORBIC ACID 500 MG TABLET GT SCH (09:42)
[2022-02-16] MEDS: MULTIVITAMIN/LUTEIN/MINERALS 1 TAB PO SCH (09:42)
[2022-02-16] MEDS: ZINC SULFATE 220 MG CAPSULE PO SCH (09:42)
[2022-02-16] MEDS: PIPERACILLIN /TAZOBACTAM 3.375 G in IV D5W 100 ML IV SCH ×2 (10:09→18:26)
--- NOTE | 2022-02-16 11:20 | NUR ---
WOUND CARE CONSULT: PT PRESENTS WITH REDNESS/SKIN CONDITION WITH WEEPING TO BILATERAL ARMS AND RT HIP AREA WELL DEEP TISSUE INJURY/ESCHAR TO LEFT HEEL, PRESENT ON ADMISSION. DR HARRELL AND DR HAYDEN CALLED FOR SURGICAL AND DPM CONSULTS. RECOMMENDATIONS MADE FOR SKIN PROTECTION. DISCUSSED WITH NURSING STAFF. OLVERA CATH NOTED. PT INCONTINENT OF STOOL. FIRST STEP LOW AIRLOSS MATTRESS ORDERED. MD IN AGREEMENT WITH PLAN OF CARE.
[2022-02-16 12:00] VITALS: BP 134/95
[2022-02-16 16:00] VITALS: BP 144/90
[2022-02-16] MEDS: NYSTATIN CREAM 15 GM TUBE TP SCH ×2 (17:00→18:26)
[2022-02-16] MEDS: Z GUARD REMEDY 4 OZ OINT TP SCH (18:27)
--- NOTE | 2022-02-16 19:28 | NUR ---
RN NOTE PT RESTING IN BED, OBTUNDED. WITH TRACH IN PLACE AND VENT SETTINGS TOLERATED WELL. PT NOT IN RESPI DISTRESS. OLVERA CATH IN PLACE, DRAINING WELL. WITH IV ACCESS ON VOLODYMYR G18 AND KIAH MIDLINE IN PLACE WITH IVF NS @75/HR. GT FEEDING GLUCERNA 1.2 @ 80CCHR. ASPIRATION PREC MAINTAINED. DUE MEDICATION GIVEN. AM/PM CARE DONE. WILL CONT TO MONITOR.
[2022-02-16 20:00] VITALS: BP 161/99
[2022-02-16] MEDS: ENOXAPARIN SODIUM 40 MG/0.4 ML DISP.SYRIN SQ SCH (22:30)
--- NOTE | 2022-02-16 23:16 | NUR ---
[facility] RN OPENING NOTE PT RECEIVED IN BED, OBTUNDED, OPENS EYES. PT ON PORTEX #9, AC 16, TV 450, FIO2 40%, PEEP 5; NO S/S OF RESP DISTRESS, BUT NOTED TO BE TACHYPNEIC WITH RR OF 32; NO SOB OR COUGH, NON-LABORED AND EQUAL BREATHING. PT ATTACHED TO EXTERNAL MONITOR, ST WITH HR OF 110. OLVERA INTACT AND PATENT, DRAINING LUCIA URINE. GTD C/D/I WITH GLUCERNA AT 80 ML/HR; NO RESIDUAL NOTED. VOLODYMYR 18G AND KIAH MIDLINE 18G INTACT AND PATENT, FLUSHES EASILY WITH NO RESISTANCE; NS INFUSING AT 75 ML/HR. BED IN LOWEST POSITION, CALL LIGHT WITHIN REACH, SIDE RAILS UP X3. WILL CONTINUE TO MONITOR THROUGHOUT THE NIGHT.
[2022-02-17] VITALS: BP 137/89
[2022-02-17] MEDS: IPRATROPIUM NEB FS 0.5 MG/2.5 ML AMPUL.NEB IH SCH ×4 (02:08→20:32)
[2022-02-17] MEDS: ALBUTEROL FS 2.5 MG/0.5 ML VIAL.NEB NEB SCH ×5 (02:09→20:35)
[2022-02-17] MEDS: PIPERACILLIN /TAZOBACTAM 3.375 G in IV D5W 100 ML IV SCH ×3 (02:10→17:34)
[2022-02-17] MEDS: GLUCERNA 1.2 1,000 ML BOTTLE NG PRN ×2 (02:15→20:50)
[2022-02-17 04:00] VITALS: BP 154/89
--- NOTE | 2022-02-17 06:38 | NUR ---
[facility] RN CLOSING NOTE PT REMAINS IN BED, OBTUNDED, OPENS EYES. CONTINUES ON SAME VENT SETTINGS; TOLERATED VENT SETTINGS WELL; NO S/S OF RESP DISTRESS, CONTINUES TO BE TACHYPNEIC WITH PERIODS OF NORMAL RESPIRATIONS; NO SOB OR COUGH, NON-LABORED AND EQUAL BREATHING. ATTACHED TO EXTERNAL MONITOR, SR-ST WITH HR HIGH 125. OLVERA INTACT AND PATENT, DRAINING LUCIA URINE. GTD C/D/I WITH GLUCERNA AT 80 ML/HR. VOLODYMYR 18G AND KIAH MIDLINE 18G INTACT AND PATENT, FLUSHES EASILY WITH NO RESISTANCE; NS INFUSING AT 75 ML/HR. BED IN LOWEST POSITION, CALL LIGHT WITHIN REACH, SIDE RAILS UP X3. WILL ENDORSE TO DAYSHIFT NURSE TO CONTINUE CARE.
[2022-02-17 08:00] VITALS: BP 127/90
[2022-02-17] MEDS: CHLORHEXIDINE GLUCONATE 15 ML UDC MM SCH ×2 (09:24→17:34)
[2022-02-17] MEDS: ASCORBIC ACID 500 MG TABLET GT SCH (09:24)
[2022-02-17] MEDS: MULTIVITAMIN/LUTEIN/MINERALS 1 TAB PO SCH (09:24)
[2022-02-17] MEDS: DOCUSATE SODIUM 100 MG CAPSULE PO SCH (09:24)
[2022-02-17] MEDS: ZINC SULFATE 220 MG CAPSULE PO SCH (09:24)
[2022-02-17] MEDS: CARVEDILOL 12.5 MG TABLET GT SCH ×2 (09:25→20:42)
[2022-02-17] MEDS: Z GUARD REMEDY 4 OZ OINT TP SCH (09:39)
[2022-02-17] MEDS: NYSTATIN CREAM 15 GM TUBE TP SCH ×2 (09:39→17:35)
[2022-02-17] MEDS: PROSOURCE / PROSTAT (PYXIS) 30 ML UDC GT SCH ×2 (11:22→17:34)
[2022-02-17 12:00] VITALS: BP 127/90
[2022-02-17] MEDS: ACETAMINOPHEN 325 MG TABLET PO PRN ×2 (13:36→20:41)
[2022-02-17] MEDS ORDERED: LORAZEPAM INJ 2 MG/ML VIAL IV PRN (14:00)
[2022-02-17] MEDS ORDERED: clonazePAM 0.5 MG TABLET PO PRN (14:30)
[2022-02-17] MEDS: PANTOPRAZOLE 40 MG/PACK PACK GT SCH (14:52)
[2022-02-17 14:55] LABS: BASOPHILS % (AUTO) 0.4 % (0.0-2.0); EOSINOPHILS % (AUTO) 7.2 % (0.0-6.0); HEMATOCRIT 38 % (39-51); HEMOGLOBIN 12.8 g/dL (13.5-17.5); LYMPHOCYTES # (AUTO) 0.7 K/uL (0.8-4.8); LYMPHOCYTES % (AUTO) 7.5 % (20.0-44.0); MEAN CORPUSCULAR HGB CONC 33 g/dl (31.0-36.0); MEAN CORPUSCULAR VOLUME 96 fL (80-96); MONOCYTES # (AUTO) 0.5 K/uL (0.1-1.30); MONOCYTES % (AUTO) 5.7 % (2.0-12.0); NEUTROPHILS # (AUTO) 7.2 K/uL (1.8-8.9); NEUTROPHILS % (AUTO) 79.2 % (43.0-81.0); PLATELET COUNT (AUTO) 237 K/uL (150-450); RED BLOOD CELL COUNT(AUTO) 3.99 MIL/uL (4.5-6.0); WHITE BLOOD COUNT (AUTO) 9.1 K/uL (4.3-11.0)
[2022-02-17 15:24] LABS: CALCIUM, SERUM 9.5 mg/dL (8.5-10.1); CREATININE 1.3 mg/dL (0.6-1.3); MAGNESIUM 2.3 mg/dL (1.8-2.4); PHOSPHORUS 3.6 mg/dL (2.5-4.9); POTASSIUM 3.9 mmol/L (3.5-5.1)
[2022-02-17 16:00] VITALS: BP 114/82
[2022-02-17] MEDS: AMMONIUM LACTATE 227 GM BOTTLE TP SCH (17:35)
[2022-02-17] MEDS: IV NS 0.9% 1,000 ML IV PRN (19:26)
--- NOTE | 2022-02-17 19:30 | NUR ---
RN OPENING NOTE PT RECEIVED IN BED, OBTUNDED, OPENS EYES. PT ON PORTEX #9, AC 16, TV 450, FIO2 40%, PEEP 5; NO S/SX OF ACUTE RESP DISTRESS NOTED AT THIS TIME. NO SOB OR COUGH, NON-LABORED AND EQUAL BREATHING. PT ATTACHED TO EXTERNAL MONITOR, ST WITH HR OF 112. VOLODYMYR 18G AND KIAH MIDLINE 18G INTACT AND PATENT, FLUSHES EASILY WITH NO RESISTANCE; NS INFUSING AT 75 ML/HR. GTD C/D/I WITH GLUCERNA AT 80 ML/HR; NO RESIDUAL NOTED. OLVERA INTACT AND PATENT, DRAINING LUCIA URINE. ALL SAFETY MEASURES IN PLACE: BED IN LOWEST POSITION, CALL LIGHT WITHIN REACH, SIDE RAILS UP X3. WILL CONTINUE TO MONITOR THROUGHOUT THE NIGHT.
[2022-02-17 20:00] VITALS: BP 157/109
[2022-02-17] MEDS: ENOXAPARIN SODIUM 40 MG/0.4 ML DISP.SYRIN SQ SCH (20:42)
[2022-02-17] MEDS: LORAZEPAM INJ 2 MG/ML VIAL IV PRN (20:57)
[2022-02-17] MEDS: SENNOSIDES 8.6 MG TABLET GT SCH (21:55)
[2022-02-18] VITALS: BP 152/87
[2022-02-18] MEDS: PIPERACILLIN /TAZOBACTAM 3.375 G in IV D5W 100 ML IV SCH ×3 (01:26→17:00)
[2022-02-18] MEDS: IPRATROPIUM NEB FS 0.5 MG/2.5 ML AMPUL.NEB IH SCH ×4 (01:55→19:49)
[2022-02-18] MEDS: ALBUTEROL FS 2.5 MG/0.5 ML VIAL.NEB NEB SCH ×5 (01:55→19:49)
[2022-02-18 04:00] VITALS: BP 156/110
--- NOTE | 2022-02-18 05:28 | NUR ---
RN NOTE PT IS NOW AFEBRILE, TEMP 98.3 TELE MONITOR READS SR-ST, NO SIGNS OF RESPI DISTRESS NOTED. PM CARE DONE. TURNED AND REPOSITIONED. WILL ENDORSE TO AM SHIFT NURSE FOR ADAM.
[2022-02-18 07:09] LABS: BASOPHILS % (AUTO) 0.4 % (0.0-2.0); EOSINOPHILS % (AUTO) 7.1 % (0.0-6.0); HEMATOCRIT 36 % (39-51); LYMPHOCYTES # (AUTO) 1.2 K/uL (0.8-4.8); LYMPHOCYTES % (AUTO) 12.6 % (20.0-44.0); MEAN CORPUSCULAR HGB CONC 33 g/dl (31.0-36.0); MEAN CORPUSCULAR VOLUME 96 fL (80-96); MONOCYTES # (AUTO) 0.8 K/uL (0.1-1.30); MONOCYTES % (AUTO) 8.7 % (2.0-12.0); NEUTROPHILS # (AUTO) 6.7 K/uL (1.8-8.9); NEUTROPHILS % (AUTO) 71.2 % (43.0-81.0); PLATELET COUNT (AUTO) 212 K/uL (150-450); RED BLOOD CELL COUNT(AUTO) 3.74 MIL/uL (4.5-6.0); WHITE BLOOD COUNT (AUTO) 9.4 K/uL (4.3-11.0)
[2022-02-18 07:15] LABS: CALCIUM, SERUM 9.3 mg/dL (8.5-10.1); MAGNESIUM 2.2 mg/dL (1.8-2.4); PHOSPHORUS 3.6 mg/dL (2.5-4.9); POTASSIUM 3.3 mmol/L (3.5-5.1)
[2022-02-18 08:00] VITALS: BP 170/98
[2022-02-18] MEDS: ASCORBIC ACID 500 MG TABLET GT SCH (08:33)
[2022-02-18] MEDS: DOCUSATE SODIUM 100 MG CAPSULE PO SCH (08:33)
[2022-02-18] MEDS: PANTOPRAZOLE 40 MG/PACK PACK GT SCH (08:33)
[2022-02-18] MEDS: MULTIVITAMIN/LUTEIN/MINERALS 1 TAB PO SCH (08:34)
[2022-02-18] MEDS: CHLORHEXIDINE GLUCONATE 15 ML UDC MM SCH ×2 (08:34→16:54)
[2022-02-18] MEDS: ZINC SULFATE 220 MG CAPSULE PO SCH (08:34)
[2022-02-18] MEDS: CARVEDILOL 12.5 MG TABLET GT SCH ×2 (08:34→20:23)
[2022-02-18] MEDS: PROSOURCE / PROSTAT (PYXIS) 30 ML UDC GT SCH ×2 (08:37→16:54)
[2022-02-18] MEDS: Z GUARD REMEDY 4 OZ OINT TP PRN (08:50)
[2022-02-18] MEDS: AMMONIUM LACTATE 227 GM BOTTLE TP SCH ×2 (08:50→16:54)
[2022-02-18] MEDS: NYSTATIN CREAM 15 GM TUBE TP SCH ×2 (08:50→16:54)
[2022-02-18] MEDS: Z GUARD REMEDY 4 OZ OINT TP SCH (08:52)
[2022-02-18] MEDS: LORAZEPAM INJ 2 MG/ML VIAL IV PRN ×2 (09:17→20:04)
--- NOTE | 2022-02-18 09:17 | NUR ---
RN NOTE PATIENR STARTED TO HAVE SEIZURES , ATIVAL IV 1 MG INFUSED
[2022-02-18] MEDS: IV NS 0.9% 1,000 ML IV PRN ×2 (09:25→22:45)
[2022-02-18] MEDS: ACETAMINOPHEN 325 MG TABLET PO PRN ×2 (09:36→20:22)
[2022-02-18] MEDS ORDERED: POTASSIUM CHLORIDE 20 MEQ POWDER PACKET GT SCH (11:00)
[2022-02-18] MEDS: GLUCERNA 1.2 1,000 ML BOTTLE NG PRN (11:28)
[2022-02-18 12:00] VITALS: BP 108/74
[2022-02-18 16:03] VITALS: BP 122/73
--- NOTE | 2022-02-18 18:25 | NUR ---
RN CLOSING NOTE PT REMAINS IN BED, OBTUNDED, OPENS EYES. CONTINUES ON SAME VENT SETTINGS; TOLERATED VENT SETTINGS WELL; NO S/S OF RESP DISTRESS, CONTINUES TO BE TACHYPNEIC WITH PERIODS OF NORMAL RESPIRATIONS; NO SOB OR COUGH, NON-LABORED AND EQUAL BREATHING. ATTACHED TO EXTERNAL MONITOR, SR-ST WITH HR HIGH 140. OLVERA INTACT AND PATENT, DRAINING LUCIA URINE. GTD C/D/I WITH GLUCERNA AT 80 ML/HR. VOLODYMYR 18G AND KIAH MIDLINE 18G INTACT AND PATENT, FLUSHES EASILY WITH NO RESISTANCE; NS INFUSING AT 75 ML/HR. BED IN LOWEST POSITION, CALL LIGHT WITHIN REACH, SIDE RAILS UP X3. WILL ENDORSE TO INSTALLATION DRAFTER NURSE TO CONTINUE CARE.
--- NOTE | 2022-02-18 19:48 | NUR ---
HEATING OPERATORS ENGINEER OPEN NOTE: EYES OPEN. OBTUNDED. TRACH WITH VENT WORKING AT PRESCRIBED SETTINGS. TELE READING SINUS TACHY 107. MIDLINE ON IKAH AND VOLODYMYR 18G IV. NO S/S OF COMPLICATIONS. GT IN PLACE PATENT. NO RESIDUAL. IVF NS AT 75ML/HR. OLVERA IN PLACE WITH YELLOW URINE. REPOSITIONED WTH PILLOWS. HOB ELEVATED SEMI-FOWLERS POSITION. BILATERAL HALF SIDE RAILS UP X2. BED IN LOW POSITION, LOCKED, WITH EXIT ALARM ON. CALL LIGHT IN REACH.
--- NOTE | 2022-02-18 19:49 | NUR ---
PT RCVD TRACH SIZE PORTEX 9 ON VENT WITH THE SETTINGS OF AC 16,VT 450, FIO2 30% PEEP 5. PT IS OBTUNDED . ALBUTEROL NOT GIVEN AT THIS TIME DUE TO ELEVATED HEART RATE OF 125. SUCTIONED SMALL AMOUNT OF KING THICK SECRETIONS. VENT PLUGGED INTO RED OUTLET , ALARMS ON AND AUDIBLE. AMBU BAG @ BEDSIDE. WILL CONTINUE TO MONITOR T/O SHIFT.
[2022-02-18 20:00] VITALS: BP 123/73
[2022-02-18] MEDS: ENOXAPARIN SODIUM 40 MG/0.4 ML DISP.SYRIN SQ SCH (20:21)
[2022-02-18] MEDS: SENNOSIDES 8.6 MG TABLET GT SCH (22:36)
[2022-02-19] VITALS: BP 123/73
[2022-02-19] MEDS: ALBUTEROL FS 2.5 MG/0.5 ML VIAL.NEB NEB SCH ×4 (01:42→19:18)
[2022-02-19] MEDS: IPRATROPIUM NEB FS 0.5 MG/2.5 ML AMPUL.NEB IH SCH ×4 (01:42→19:18)
[2022-02-19] MEDS: PIPERACILLIN /TAZOBACTAM 3.375 G in IV D5W 100 ML IV SCH ×3 (02:18→17:04)
[2022-02-19] MEDS: GLUCERNA 1.2 1,000 ML BOTTLE NG PRN (02:28)
[2022-02-19] MEDS: ACETAMINOPHEN 325 MG TABLET PO PRN ×3 (02:28→22:01)
[2022-02-19 04:00] VITALS: BP 109/66
--- NOTE | 2022-02-19 06:54 | NUR ---
NEWSPAPER INSERTER CLOSING NOTE: EYES OPEN. OBTUNDED. TRACH WITH VENT WORKING AT PRESCRIBED SETTINGS. TELE READING SINUS RHYTHM 91. MIDLINE ON KIAH AND VOLODYMYR 18G IV DC'D DUE TO DISLODGED WITH INTACT TIP. A NEW LINE INSERTED ON RIGHT FOREARM G20 SALINE LOCKED. PATENT WITH BLOOD RETURN NO S/S OF COMPLICATIONS. MEDICATED ORDERED FOR LOW GRADE TEMP AND PAIN WITH ACETAMINOPHEN, ATIVAN AND KLONOPIN GIVEN ORDERED AND EFFECTIVE. GT IN PLACE PATENT. NO RESIDUAL. IVF NS AT 75ML/HR. NO A/R TO IV ABX. TOPICAL TREATMENT DONE ORDERED TO AFFECTED AREAS. OLVERA IN PLACE WITH YELLOW URINE. KEPT CLEAN AND DRY. REPOSITIONED WITH PILLOWS. HOB ELEVATED SEMI-FOWLERS POSITION. BILATERAL HALF SIDE RAILS UP X2. BED IN LOW POSITION, LOCKED, WITH EXIT ALARM ON. CALL LIGHT IN REACH.
--- NOTE | 2022-02-19 07:32 | NUR ---
RN OPENING NOTE PT RECEIVED IN BED, OBTUNDED, OPENS EYES. PT ON PORTEX #9, AC 16, TV 450, FIO2 40%, PEEP 5; NO S/SX OF ACUTE RESP DISTRESS NOTED AT THIS TIME. NO SOB OR COUGH, NON-LABORED AND EQUAL BREATHING. PT ATTACHED TO EXTERNAL MONITOR, SR WITH HR OF 02. RIGHT ARM PIV KIAH MIDLINE 18G INTACT, NS INFUSING AT 75 ML/HR. GTD C/D/I WITH GLUCERNA AT 80 ML/HR; NO RESIDUAL NOTED. NO N/V/D NOTED. OLVERA INTACT AND PATENT, DRAINING VIA GRAVITY. ALL SAFETY MEASURES IN PLACE: BED IN LOWEST POSITION, CALL LIGHT WITHIN REACH, SIDE RAILS UP X3. WILL CONTINUE PLAN OF CARE.
[2022-02-19 07:57] LABS: CALCIUM, SERUM 8.9 mg/dL (8.5-10.1); MAGNESIUM 2.5 mg/dL (1.8-2.4); PHOSPHORUS 3.7 mg/dL (2.5-4.9); POTASSIUM 3.5 mmol/L (3.5-5.1)
[2022-02-19 08:00] VITALS: BP 146/99
[2022-02-19] MEDS: PROSOURCE / PROSTAT (PYXIS) 30 ML UDC GT SCH ×2 (09:02→16:28)
[2022-02-19] MEDS: PANTOPRAZOLE 40 MG/PACK PACK GT SCH (09:03)
[2022-02-19] MEDS: DOCUSATE SODIUM 100 MG CAPSULE PO SCH (09:03)
[2022-02-19] MEDS: ASCORBIC ACID 500 MG TABLET GT SCH (09:03)
[2022-02-19] MEDS: MULTIVITAMIN/LUTEIN/MINERALS 1 TAB PO SCH (09:03)
[2022-02-19] MEDS: CHLORHEXIDINE GLUCONATE 15 ML UDC MM SCH ×2 (09:03→16:28)
[2022-02-19] MEDS: ZINC SULFATE 220 MG CAPSULE PO SCH (09:03)
[2022-02-19] MEDS: CARVEDILOL 12.5 MG TABLET GT SCH ×2 (09:04→21:59)
[2022-02-19] MEDS: AMMONIUM LACTATE 227 GM BOTTLE TP SCH ×2 (09:25→16:29)
[2022-02-19] MEDS: Z GUARD REMEDY 4 OZ OINT TP PRN (09:26)
[2022-02-19] MEDS: NYSTATIN CREAM 15 GM TUBE TP SCH ×2 (09:26→16:29)
[2022-02-19] MEDS: Z GUARD REMEDY 4 OZ OINT TP SCH (09:37)
[2022-02-19 09:56] LABS: BASOPHILS % (AUTO) 0.5 % (0.0-2.0); EOSINOPHILS % (AUTO) 8.5 % (0.0-6.0); HEMATOCRIT 38 % (39-51); HEMOGLOBIN 12.8 g/dL (13.5-17.5); LYMPHOCYTES # (AUTO) 1.8 K/uL (0.8-4.8); LYMPHOCYTES % (AUTO) 18.7 % (20.0-44.0); MEAN CORPUSCULAR HGB CONC 34 g/dl (31.0-36.0); MEAN CORPUSCULAR VOLUME 97 fL (80-96); MONOCYTES # (AUTO) 0.7 K/uL (0.1-1.30); MONOCYTES % (AUTO) 7.8 % (2.0-12.0); NEUTROPHILS % (AUTO) 64.5 % (43.0-81.0); PLATELET COUNT (AUTO) 214 K/uL (150-450); RED BLOOD CELL COUNT(AUTO) 3.96 MIL/uL (4.5-6.0); WHITE BLOOD COUNT (AUTO) 9.4 K/uL (4.3-11.0)
[2022-02-19] MEDS: IV NS 0.9% 1,000 ML IV PRN (10:20)
[2022-02-19 12:00] VITALS: BP 135/85
--- NOTE | 2022-02-19 13:27 | NUR ---
telephonic case manager note per dr marta grewal ok order neurologist consult
[2022-02-19] MEDS ORDERED: LIDOCAINE 1%-EPI 1:100,000 50 ML VIAL IJ ONE (14:30)
--- NOTE | 2022-02-19 14:35 | NUR ---
RT NOTE RECEIVED PATIENT TRACH'D ON MECH VENT WITH SETTINGS PER MD ORDER. FORGING OPERATOR DONE. VENT PLUGGED INTO RED OUTLET. ALARMS ON AND WORKING PROPERLY. SPARE TRACH AND AMBU BAG AT HEAD OF BED. BREATHING TX'S GIVEN ORDERED. NO ADVERSE REACTIONS OBSERVED. SUCTIONED AND MONITORED PRN. NO SOB NOTED AT THIS TIME. WILL CONTINUE TO MONITOR THE PATIENT.
--- NOTE | 2022-02-19 15:16 | NUR ---
BUTTERMILK DRIER OPERATOR NOTES KIAH SKIN BIOPSY DONE AT THE BEDSIDE BY DR. HAYDEN BRUSH, SPECIMEN PLACED IN FORMALDEHYDE. SUTURE NOTED. NO BLEEDING NOTED ON THE SITE, WILL CONTINUE PLAN OF CARE.
--- NOTE | 2022-02-19 15:36 | NUR ---
TUBE BENDER HAND NOTES SPECIMEN SENT TO THE LAB HANDED BY CHARCOAL BURNER BEEHIVE KILN.
[2022-02-19 16:00] VITALS: BP 148/81
[2022-02-19] MEDS: LORAZEPAM INJ 2 MG/ML VIAL IV PRN (18:31)
--- NOTE | 2022-02-19 18:43 | NUR ---
TEST CENTER ADMINISTRATOR NOTES, NOTED PATIENT IN DISTRESS, PRN ATIVAN GIVEN, NOTED RR 41, RT NOTIFIED.
--- NOTE | 2022-02-19 18:53 | NUR ---
ENROLLMENT ADVISOR CLOSING NOTE: PATIENT AWAKE, OBTUNDED. TRACH WITH VENT WORKING AT PRESCRIBED SETTINGS. TELE READING SINUS TACHY HR 102. MIDLINE ON KIAH PATENT AND INTACT WITH IV ATB RUNNING AND NORMAL SALINE AT 75ML/HR, RIGHT FOREARM G20 SALINE LOCKED PATENT AND INTACT, FLUSHES WELL. PRN ATIVAN AND TYLENOL GIVEN. GT IN PLACE PATENT AND INTACT, NO RESIDUAL, GLUCERNA AT 80ML/HR, TOLERATING WELL, NO N/V/D NOTED. TOPICAL TREATMENT DONE ORDERED TO AFFECTED AREAS. OLVERA IN PLACE WITH YELLOW URINE. KEPT CLEAN AND DRY. REPOSITIONED WITH PILLOWS. HOB ELEVATED SEMI-FOWLERS POSITION. BILATERAL HALF SIDE RAILS UP X2. BED IN LOW POSITION, LOCKED, WITH EXIT ALARM ON. CALL LIGHT IN REACH. WILL ENDORSED TO ECG TECHNICIAN NURSE FOR ADAM.
[2022-02-19 20:00] VITALS: BP 154/91
--- NOTE | 2022-02-19 20:00 | NUR ---
MESH WORKER OPENING NOTE PT RECEIVED IN BED, OBTUNDED,WITH OPENS EYES. ON VENT SETTING AC PORTEX #9, AC 16, TV 450, FIO2 40%, PEEP 5;TOLERATING WELL , NO SOB NO S/SX OF ACUTE RESP DISTRESS NOTED . BREATHING NON-LABORED , LUNG SOUND RONCHI , TRACHED MIDLINE BREATHING TRATMENT GIVEN BY RT V/S STABLE TEMP 99.1 COOLING MEASURES APPLIED .ALL DUE MEDS GIVEN ORDERED NO ASE NOTED RIGHT FORE ARM g20 INTACT AND PATENT KIAH MIDLINE 18G INTACT, NS INFUSING AT 75 ML/HR. OLVERA CATH IN SITU DRAINING WITH YELLOWISH URINE OUTPUT , GT FEEDING GLUCERNA AT 80 ML/HR; NO RESIDUAL NOTED. ALL SAFETY MEASURES IN PLACE: BED IN LOWEST POSITION, CALL LIGHT WITHIN REACH, SIDE RAILS UP X3. WILL CONTINUE TO MONITOR.
[2022-02-19] MEDS: SENNOSIDES 8.6 MG TABLET GT SCH (21:59)
[2022-02-19] MEDS: ENOXAPARIN SODIUM 40 MG/0.4 ML DISP.SYRIN SQ SCH (22:00)
[2022-02-20] VITALS: BP 145/95
[2022-02-20] MEDS: IV NS 0.9% 1,000 ML IV PRN (01:02)
--- NOTE | 2022-02-20 01:35 | NUR ---
RT PT RECVD STABLE ON AC VENT SETTINGS OF RR16 VT 450 FIO2 30% PEEP +5 AND LAUREN WELL. TRACH IS A PORTEX 9 AND IS PATENT, MIDLINE AND SECURED. SUCTION DONE Q2/PRN, NEB TX GIVEN AND LAUREN WELL. TRACH CARE DONE. SPO2 >92%. NO SOB OR RESPIRATORY DISTRESS NOTED. VENT IS PLUGGED INTO RED OUTLET WITH ALARMS ON AND AUDIBLE. SPARE TRACH AND AMBU BAG AT BEDSIDE.
[2022-02-20] MEDS: ALBUTEROL FS 2.5 MG/0.5 ML VIAL.NEB NEB SCH ×4 (01:50→20:36)
[2022-02-20] MEDS: IPRATROPIUM NEB FS 0.5 MG/2.5 ML AMPUL.NEB IH SCH ×4 (01:50→20:36)
[2022-02-20] MEDS: PIPERACILLIN /TAZOBACTAM 3.375 G in IV D5W 100 ML IV SCH ×3 (02:00→17:02)
[2022-02-20 04:00] VITALS: BP 155/91
[2022-02-20 06:41] LABS: CALCIUM, SERUM 8.9 mg/dL (8.5-10.1); CREATININE 0.8 mg/dL (0.6-1.3); MAGNESIUM 2.3 mg/dL (1.8-2.4); PHOSPHORUS 3.8 mg/dL (2.5-4.9); POTASSIUM 4.5 mmol/L (3.5-5.1)
--- NOTE | 2022-02-20 06:57 | NUR ---
RN CLOSING NOTE: PATIENT REMAINS IN ROOM IN NO SIGNS OF RESPIRATORY DISTRESS, PATIENT STILL ON MECH VENT; SETTINGS PRESCRIBED;TOLERATING WELL SATURATING @ >90% SP02. SAFETY MEASURES IMPLEMENTED, BED IN LOWEST POSITION, LOCKED, SIDE RAILS UP, CALL LIGHT WITHIN REACH. ALL NEEDS AND ORDERS ADDRESSED DURING THE SHIFT. IV ACCESS MAINTAINED INTACT, SECURED AND FLUSHING WELL. ALL DUE MEDS GIVEN ORDERED & SCHEDULED ; PATIENT TOLERATED WELL. PATIENT KEPT CLEAN AND COMFORTABLE WITHIN THE SHIFT. PATIENT ENDORSED TO INCOMING SHIFT RN WITH STABLE VITAL SIGN AND FOR CONTINUITY OF CARE.
--- NOTE | 2022-02-20 07:20 | NUR ---
RN OPENING NOTE: PT REMAINS IN BED.OBTUNDED. NO SIGNS OF PAIN OR DISCOMFORT NOTED AT THIS TIME. PT IS CONTRACTED ON BILATERAL UPPER EXTREMITIES. PT IS ON MECHANICAL VENTILATOR WITH ORDERED SETTINGS TOLERATING WELL. PT HAS L UA MIDLINE. INTACT AND FLUSHING WELL. OLVERA CATHETHER IN PLACE. YELLOW COLOR OUTPUT.PATIENT HAS R IV SITE.IV SITE INTACT FLUSHING WELL. PT HAS GTUBE IN PLACE AND INTACT. ALL SAFETY MEASURES IN PLACE. BED LOCKED AT LOWEST POSITION.SIDE RAILS UP X2.
[2022-02-20 08:00] VITALS: BP 149/103
[2022-02-20] MEDS ORDERED: clonazePAM 0.5 MG TABLET NG PRN (08:26)
[2022-02-20] MEDS: PROSOURCE / PROSTAT (PYXIS) 30 ML UDC GT SCH ×2 (08:32→16:45)
[2022-02-20] MEDS: MULTIVITAMIN/LUTEIN/MINERALS 1 TAB PO SCH (08:32)
[2022-02-20] MEDS: ZINC SULFATE 220 MG CAPSULE PO SCH (08:32)
[2022-02-20] MEDS: ASCORBIC ACID 500 MG TABLET GT SCH (08:32)
[2022-02-20] MEDS: PANTOPRAZOLE 40 MG/PACK PACK GT SCH (08:32)
[2022-02-20] MEDS: CHLORHEXIDINE GLUCONATE 15 ML UDC MM SCH ×2 (08:32→16:45)
[2022-02-20] MEDS: CARVEDILOL 12.5 MG TABLET GT SCH ×2 (08:33→21:12)
[2022-02-20] MEDS: AMMONIUM LACTATE 227 GM BOTTLE TP SCH ×2 (08:34→16:46)
[2022-02-20 08:42] LABS: BASOPHILS % (AUTO) 0.4 % (0.0-2.0); EOSINOPHILS % (AUTO) 11.8 % (0.0-6.0); HEMATOCRIT 42 % (39-51); HEMOGLOBIN 13.7 g/dL (13.5-17.5); LYMPHOCYTES # (AUTO) 1.6 K/uL (0.8-4.8); LYMPHOCYTES % (AUTO) 12.1 % (20.0-44.0); MEAN CORPUSCULAR HGB CONC 33 g/dl (31.0-36.0); MEAN CORPUSCULAR VOLUME 97 fL (80-96); MONOCYTES # (AUTO) 0.9 K/uL (0.1-1.30); MONOCYTES % (AUTO) 6.8 % (2.0-12.0); NEUTROPHILS # (AUTO) 9.1 K/uL (1.8-8.9); NEUTROPHILS % (AUTO) 68.9 % (43.0-81.0); PLATELET COUNT (AUTO) 228 K/uL (150-450); RED BLOOD CELL COUNT(AUTO) 4.28 MIL/uL (4.5-6.0); WHITE BLOOD COUNT (AUTO) 13.2 K/uL (4.3-11.0)
[2022-02-20] MEDS: DOCUSATE SODIUM LIQ 100 MG/10 ML UDC NG SCH (10:14)
[2022-02-20] MEDS: Z GUARD REMEDY 4 OZ OINT TP SCH (11:07)
[2022-02-20] MEDS: NYSTATIN CREAM 15 GM TUBE TP SCH ×2 (11:07→16:46)
[2022-02-20 12:00] VITALS: BP 154/107
[2022-02-20] MEDS: ACETAMINOPHEN 325 MG TABLET PO PRN (14:17)
[2022-02-20] MEDS: LORAZEPAM INJ 2 MG/ML VIAL IV PRN (14:18)
--- NOTE | 2022-02-20 15:00 | NUR ---
RN NOTE [email or web address] THAT PT IS GRAM POSITIVE.INFORMED CUTTER OPERATOR BRICK
--- NOTE | 2022-02-20 15:30 | NUR ---
RN NOTE NOTIFIED THAT PT IS GETTING NS @75 ML/HR AND GTUBE FEEDING @ 80 ML/HR. AND IF FLUIDS CAN BE DECREASED OR CONTINUE. SAID TO DECREASE RATE TO 50 CC/HR.ORDERS NOTED AND CARRIED OUT.
[2022-02-20 16:00] VITALS: BP 126/77
--- NOTE | 2022-02-20 18:30 | NUR ---
RN CLOSING NOTE PT IN BED. PATIENT AWAKE. PT ON TELE MONITOR SINUS TACHYCARDIA.PT IS CONTRACTED BILATERAL UPPER EXTREMITIES. NO SIGNS OF PAIN OR DISCOMFORT. DID ORAL CARE. PT IS ON MECHANICAL VENTILATOR WITH ORDERED SETTINGS TOLERATING WELL.PT HAS FC DRAINING YELLOW COLOR URINE OUTPUT. PT REMAINED AFEBRILE THROUGHOUT WHOLE SHIFT. ALL NEEDS MET. ALL SAFETY MEASURE IN PLACE. BED LOCKED AT LOWEST POSITION. SIDE RAILS UP X2. BED ALARM
--- NOTE | 2022-02-20 19:30 | NUR ---
RN NOTES RECEIVED PT FOR CONTINUITY OF CARE. PATIENT OBTUNDED IN NO S/SX OF ACUTE DISTRESS AT THIS TIME; CURRENTLY ON MECHANICAL VENT; SETTING PRESCRIBED, WITH 02 SAT >95% AT THIS TIME. WITH IV ACCESS ON R FA#20 AND L UA MIDLINE#18 BOTH PATENT, INTACT AND FLUSHING WELL. WITH RUNNING FLUIDS ORDERED AND TUBE FEEDING RUNNING PRESCRIBED. WILL ENSURE SAFETY MEASURES WITHIN THE SHIFT. PATIENT BED ALARM IS ON. HEAD OF BED ELEVATED. BED IS LOCKED, IN LOWEST POSITION AND SIDE RAILS UP. CALL LIGHT WITHIN REACH OF THE PATIENT. WILL CONTINUE TO MONITOR AND REASSESS FOR ANY CHANGES AND WILL CARRY OUT ANY ONGOING AND ACTIVE MD ORDER.
[2022-02-20 20:00] VITALS: BP 111/79
[2022-02-20] MEDS: SENNOSIDES 8.6 MG TABLET GT SCH (21:12)
[2022-02-20] MEDS: ENOXAPARIN SODIUM 40 MG/0.4 ML DISP.SYRIN SQ SCH (21:13)
[2022-02-21] VITALS: BP 128/85
[2022-02-21] MEDS: GLUCERNA 1.2 1,000 ML BOTTLE NG PRN ×2 (01:01→15:49)
[2022-02-21] MEDS: ALBUTEROL FS 2.5 MG/0.5 ML VIAL.NEB NEB SCH ×4 (01:56→19:26)
[2022-02-21] MEDS: IPRATROPIUM NEB FS 0.5 MG/2.5 ML AMPUL.NEB IH SCH ×4 (01:56→19:26)
[2022-02-21] MEDS: PIPERACILLIN /TAZOBACTAM 3.375 G in IV D5W 100 ML IV SCH ×3 (03:08→17:14)
[2022-02-21 04:00] VITALS: BP 127/88
--- NOTE | 2022-02-21 04:00 | NUR ---
RN NOTES PATIENT REMAINED TO BE IN NO SIGNS OF ACUTE RESPIRATORY DISTRESS , VITAL SIGNS STABLE AT THIS TIME. REGULAR TURNING AND REPOSITIONING DONE Q2H AND SUCTIONING RENDERED. AM PATIENT CARE DONE. WILL CONTINUE TO MONITOR AND REASSESS FOR ANY CHANGES THROUGHOUT THE SHIFT.
--- NOTE | 2022-02-21 06:39 | NUR ---
RN CLOSING NOTE: PATIENT REMAINS IN ROOM IN NO SIGNS OF RESPIRATORY DISTRESS, PATIENT STILL ON MECH VENT; SETTINGS PRESCRIBED;TOLERATING WELL SATURATING @ >95% SP02. SAFETY MEASURES IMPLEMENTED, BED IN LOWEST POSITION, LOCKED, SIDE RAILS UP, CALL LIGHT WITHIN REACH. ALL NEEDS AND ORDERS ADDRESSED DURING THE SHIFT. IV ACCESS MAINTAINED INTACT, SECURED AND FLUSHING WELL. TUBE FEEDING STILL RUNNING ORDERED. ALL DUE MEDS GIVEN ORDERED & SCHEDULED ; PATIENT TOLERATED WELL. PATIENT KEPT CLEAN AND COMFORTABLE WITHIN THE SHIFT. PATIENT ENDORSED TO INCOMING SHIFT RN WITH STABLE VITAL SIGN AND FOR CONTINUITY OF CARE.
[2022-02-21 06:49] LABS: BASOPHILS % (AUTO) 0.3 % (0.0-2.0); EOSINOPHILS % (AUTO) 15.6 % (0.0-6.0); HEMATOCRIT 41 % (39-51); HEMOGLOBIN 13.8 g/dL (13.5-17.5); LYMPHOCYTES # (AUTO) 1.8 K/uL (0.8-4.8); LYMPHOCYTES % (AUTO) 15.1 % (20.0-44.0); MEAN CORPUSCULAR HGB CONC 34 g/dl (31.0-36.0); MEAN CORPUSCULAR VOLUME 97 fL (80-96); MONOCYTES # (AUTO) 0.7 K/uL (0.1-1.30); MONOCYTES % (AUTO) 5.9 % (2.0-12.0); NEUTROPHILS # (AUTO) 7.6 K/uL (1.8-8.9); NEUTROPHILS % (AUTO) 63.1 % (43.0-81.0); PLATELET COUNT (AUTO) 249 K/uL (150-450); RED BLOOD CELL COUNT(AUTO) 4.22 MIL/uL (4.5-6.0); WHITE BLOOD COUNT (AUTO) 12.1 K/uL (4.3-11.0)
--- NOTE | 2022-02-21 07:29 | NUR ---
MEAT PRESS OPERATOR OPENING NOTE RECEIVED PT AWAKE, OBTUNDED. PT IS ON MECHANICAL VENT ON PRESCRIBED SETTINGS, TOLERATING WELL. PT IS NOT IN ANY SIGN OF RESPIRATORY DISTRESS. PT ON TELE BODY FORMER WITH CURRENT READING OF SINUS TACH, HR 104. NO SIGNS OF CARDIAC DISTRESS NOTED AT THIS TIME. IV ACCESS IN KIAH MIDLINE, INTACT AND PATENT WITH NS INFUSING AT 75ML/HR. RFA G #20 IV ACCESS, INTACT AND PATENT. GTUBE INTACT AND PATENT WITH GLUCERNA FEEDING RUNNING AT 80ML/HR. OLVERA CATH IN PLACE AND DRAINING WELL. SAFETY MEASURES IN PLACE: BED IN LOWEST AND LOCKED POSITION, BED ALARM ON, SIDE RAILS UPX2, KEPT HOB ELEVATED, AND CALL LIGHT WITHIN REACH. WILL CONTINUE TO MONITOR PT.
[2022-02-21 07:36] LABS: CALCIUM, SERUM 9.3 mg/dL (8.5-10.1); MAGNESIUM 2.3 mg/dL (1.8-2.4); PHOSPHORUS 4.1 mg/dL (2.5-4.9); POTASSIUM 3.8 mmol/L (3.5-5.1)
[2022-02-21 08:00] VITALS: BP 134/85
[2022-02-21] MEDS: PROSOURCE / PROSTAT (PYXIS) 30 ML UDC GT SCH ×2 (08:53→16:23)
[2022-02-21] MEDS: MULTIVITAMIN/LUTEIN/MINERALS 1 TAB PO SCH (08:54)
[2022-02-21] MEDS: CHLORHEXIDINE GLUCONATE 15 ML UDC MM SCH ×2 (08:54→16:23)
[2022-02-21] MEDS: ASCORBIC ACID 500 MG TABLET GT SCH (08:54)
[2022-02-21] MEDS: ZINC SULFATE 220 MG CAPSULE PO SCH (08:55)
[2022-02-21] MEDS: DOCUSATE SODIUM LIQ 100 MG/10 ML UDC NG SCH (08:55)
[2022-02-21] MEDS: PANTOPRAZOLE 40 MG/PACK PACK GT SCH (08:55)
[2022-02-21] MEDS: CARVEDILOL 12.5 MG TABLET GT SCH ×2 (08:55→21:11)
[2022-02-21] MEDS: Z GUARD REMEDY 4 OZ OINT TP PRN (08:57)
[2022-02-21] MEDS: NYSTATIN CREAM 15 GM TUBE TP SCH ×2 (08:58→16:24)
[2022-02-21] MEDS: Z GUARD REMEDY 4 OZ OINT TP SCH (08:59)
[2022-02-21] MEDS: AMMONIUM LACTATE 227 GM BOTTLE TP SCH ×2 (08:59→16:23)
[2022-02-21] MEDS: IV NS 0.9% 1,000 ML IV PRN (09:49)
[2022-02-21 12:00] VITALS: BP 125/74
[2022-02-21 16:00] VITALS: BP 140/82
[2022-02-21] MEDS: ACETAMINOPHEN 325 MG TABLET PO PRN ×2 (16:23→21:54)
--- NOTE | 2022-02-21 16:29 | NUR ---
RN NOTE PT NOTED WITH ELEVATED TEMP OF 100.0 F. COOLING MEASURES APPLIED. TYLENOL 650MG VIA GTUBE ADMINISTERED ORDERED Q6HRS PRN FOR FEVER. WILL MONITOR AND REASSESS PT.
--- NOTE | 2022-02-21 17:05 | NUR ---
RN NOTE REASSESSED PT'S TEMP AFTER 30 MINUTES OF TYLENOL ADMINISTRATION. TEMP IS 99.8. DR. BRUSH AWARE WITH NO NEW ORDER.
--- NOTE | 2022-02-21 18:40 | NUR ---
MANAGER EQUITY CLOSING NOTE PT AWAKE, OBTUNDED. PT IS ON MECHANICAL VENT ON PRESCRIBED SETTINGS, TOLERATING WELL. PT IS NOT IN ANY SIGN OF RESPIRATORY DISTRESS. PT ON TELE DISPOSAL MAN WITH CURRENT READING OF SINUS RHYTHM, HR 95. NO SIGNS OF CARDIAC DISTRESS NOTED AT THIS TIME. IV ACCESS IN KIAH MIDLINE, INTACT AND PATENT WITH ZOSYN ANTIBIOTIC INFUSING AT 25ML/HR. RFA G #20 IV ACCESS, INTACT AND PATENT WITH NS INFUSING AT 75ML/HR. GTUBE INTACT AND PATENT WITH GLUCERNA FEEDING RUNNING AT 80ML/HR. OLVERA CATH IN PLACE AND DRAINING WELL. REASSESSED PT'S TEMP IS AT 99.6F AT THIS TIME. ALL NEEDS ATTENDED. KEPT CLEAN AND COMFORTABLE. TURNED AND REPOSITIONED Q2HRS AND NEEDED. SAFETY MEASURES IN PLACE: BED IN LOWEST AND LOCKED POSITION, BED ALARM ON, SIDE RAILS UPX2, KEPT HOB ELEVATED, AND CALL LIGHT WITHIN REACH. WILL ENDORSE TO SAND MIXER OPERATOR NURSE FOR ADAM.
[2022-02-21 20:00] VITALS: BP 139/87
[2022-02-21] MEDS: SENNOSIDES 8.6 MG TABLET GT SCH (21:11)
[2022-02-21] MEDS: ENOXAPARIN SODIUM 40 MG/0.4 ML DISP.SYRIN SQ SCH (21:12)
[2022-02-22] VITALS: BP 136/80
[2022-02-22] MEDS: PIPERACILLIN /TAZOBACTAM 3.375 G in IV D5W 100 ML IV SCH ×3 (01:01→17:27)
--- NOTE | 2022-02-22 01:28 | NUR ---
RT PT RECVD STABLE ON AC VENT SETTINGS OF RR16 VT 450 FIO2 30% PEEP +5 AND LAUREN WELL. TRACH IS PATENT, MIDLINE AND SECURED. SUCTION DONE Q2/PRN, NEB TX GIVEN AND LAUREN WELL. TRACH CARE DONE. SPO2 >92%. NO SOB OR RESPIRATORY DISTRESS NOTED. VENT IS PLUGGED INTO RED OUTLET WITH ALARMS ON AND AUDIBLE. SPARE TRACH AND AMBU BAG AT BEDSIDE.
[2022-02-22] MEDS: ALBUTEROL FS 2.5 MG/0.5 ML VIAL.NEB NEB SCH ×4 (01:57→20:00)
[2022-02-22] MEDS: IPRATROPIUM NEB FS 0.5 MG/2.5 ML AMPUL.NEB IH SCH ×4 (01:57→19:30)
[2022-02-22 04:00] VITALS: BP 128/86
[2022-02-22] MEDS: IV NS 0.9% 1,000 ML IV PRN ×2 (04:33→22:28)
--- NOTE | 2022-02-22 06:37 | NUR ---
RN CLOSING NOTE: PATIENT REMAINS IN ROOM IN NO SIGNS OF RESPIRATORY DISTRESS, PATIENT STILL ON MECH VENT; SETTINGS PRESCRIBED;TOLERATING WELL SATURATING @ >95% SP02. SR- ST ON MONITOR. SAFETY MEASURES IMPLEMENTED, BED IN LOWEST POSITION, LOCKED, SIDE RAILS UP, CALL LIGHT WITHIN REACH. ALL NEEDS AND ORDERS ADDRESSED DURING THE SHIFT. IV ACCESS MAINTAINED INTACT, SECURED AND FLUSHING WELL. TUBE FEEDING STILL RUNNING ORDERED. ALL DUE MEDS GIVEN ORDERED & SCHEDULED ; PATIENT TOLERATED WELL. PATIENT KEPT CLEAN AND COMFORTABLE WITHIN THE SHIFT. PATIENT ENDORSED TO INCOMING SHIFT RN WITH STABLE VITAL SIGN AND FOR CONTINUITY OF CARE.
[2022-02-22 06:45] LABS: CALCIUM, SERUM 9.2 mg/dL (8.5-10.1); MAGNESIUM 2.2 mg/dL (1.8-2.4); PHOSPHORUS 3.4 mg/dL (2.5-4.9); POTASSIUM 3.8 mmol/L (3.5-5.1)
[2022-02-22 07:12] LABS: BASOPHILS % (AUTO) 0.4 % (0.0-2.0); EOSINOPHILS % (AUTO) 17.3 % (0.0-6.0); HEMATOCRIT 37 % (39-51); HEMOGLOBIN 12.4 g/dL (13.5-17.5); LYMPHOCYTES # (AUTO) 1.7 K/uL (0.8-4.8); MEAN CORPUSCULAR HGB CONC 34 g/dl (31.0-36.0); MEAN CORPUSCULAR VOLUME 97 fL (80-96); MONOCYTES # (AUTO) 0.5 K/uL (0.1-1.30); MONOCYTES % (AUTO) 5.6 % (2.0-12.0); NEUTROPHILS # (AUTO) 5.2 K/uL (1.8-8.9); NEUTROPHILS % (AUTO) 57.7 % (43.0-81.0); PLATELET COUNT (AUTO) 224 K/uL (150-450); RED BLOOD CELL COUNT(AUTO) 3.82 MIL/uL (4.5-6.0)
--- NOTE | 2022-02-22 07:30 | NUR ---
RN NOTE RECEIVED PATIENT IN BED RESTING,OBTUNDED,CONTRACTED,ON MECHANICAL VENT SETTING PRESCIBED,ON G-TUBE FEEDING GLUCERNA AT 80CC/HR CHECKED PLACEMENT IN PLACE NO RESIDUAL NOTED,IV SITE IS ON RIGHT FOREARM AND LEFT UPPER ARM MIDLINE INTACT PATENT ON NS 75CC/HR, OLVERA CATH IN PLACE,URINE DRAINING YELLOW AND CLEAR,BY GRAVITY INCONTINENT BOWEL, SAFETY MEASURE IMPLEMENT,BED IN LOW POSITION AND LOCKED,HEAD OF THE BED ELEVATED ALL THE TIME,CONTINUE TO MONITOR.
[2022-02-22 08:00] VITALS: BP_SYST 121; BP_SYST 140; BP_DIAS 77; BP_DIAS 95
[2022-02-22] MEDS: MULTIVITAMIN/LUTEIN/MINERALS 1 TAB PO SCH (08:40)
[2022-02-22] MEDS: CHLORHEXIDINE GLUCONATE 15 ML UDC MM SCH ×2 (08:40→16:36)
[2022-02-22] MEDS: DOCUSATE SODIUM LIQ 100 MG/10 ML UDC NG SCH (08:40)
[2022-02-22] MEDS: PANTOPRAZOLE 40 MG/PACK PACK GT SCH (08:40)
[2022-02-22] MEDS: ASCORBIC ACID 500 MG TABLET GT SCH (08:40)
[2022-02-22] MEDS: ZINC SULFATE 220 MG CAPSULE PO SCH (08:40)
[2022-02-22] MEDS: CARVEDILOL 12.5 MG TABLET GT SCH ×2 (08:41→21:09)
[2022-02-22] MEDS: PROSOURCE / PROSTAT (PYXIS) 30 ML UDC GT SCH ×2 (08:42→16:59)
[2022-02-22] MEDS: AMMONIUM LACTATE 227 GM BOTTLE TP SCH ×2 (08:55→16:36)
[2022-02-22] MEDS: Z GUARD REMEDY 4 OZ OINT TP SCH (08:55)
[2022-02-22] MEDS: Z GUARD REMEDY 4 OZ OINT TP PRN (08:55)
[2022-02-22] MEDS: NYSTATIN CREAM 15 GM TUBE TP SCH ×2 (08:56→16:37)
[2022-02-22 12:00] VITALS: BP 122/73
--- NOTE | 2022-02-22 13:20 | NUR ---
RN NOTE RECEIVED CRITICAL LAB RESULTS BLOOD CULTURE IS GRAM POSITIVE COCCI, NOTIFIED DR HAYDEN BRUSH, CONTINUE TO MONITOR,PATIENT IS ON ZOSYN EVERY 8 HOURS.
[2022-02-22] MEDS: GLUCERNA 1.2 1,000 ML BOTTLE NG PRN (14:36)
[2022-02-22 16:00] VITALS: BP 120/71
[2022-02-22] MEDS: ACETAMINOPHEN 325 MG TABLET PO PRN (17:00)
--- NOTE | 2022-02-22 17:00 | NUR ---
RN NOTE ACETAMINOPHEN 650 GIVEN FOR TEMP 99.9 CONTINUE TO MONITOR.
[2022-02-22] MEDS: LORAZEPAM INJ 2 MG/ML VIAL IV PRN (17:42)
--- NOTE | 2022-02-22 17:42 | NUR ---
RN NOTE ATIVAN 1MG/0.5ML PRN GIVEN FOR ANXIETY TACHYCARDIA ABOUT 131 AND TACHYAPNIA 36,NOTIFIED DR BRUSH CONTINUE TO MONITOR.
--- NOTE | 2022-02-22 18:49 | NUR ---
RN NOTE PATIENT REMAINS OBTUNDED,CONTRACTED,ON MECHANICAL VENT, HR 104 NOW NO FEVER,TEMPERATURE 98.7,ON G-TUBE FEEDING ALL DUE MEDS GIVEN MD ORDERED KEPT CLEAN AND DRY ALL THE TIME,TURNED AND REPOSITIONED EVERY 2 HOURS,OLVERA CATH IN PLACE,HEAD OF THE BED ELEVATED ALL THE TIME,ALL NEEDS MET ENDORSE NEXT COMING SHIFT FOR CONTINUATION OF CARE.
[2022-02-22 20:00] VITALS: BP 144/86
--- NOTE | 2022-02-22 20:00 | NUR ---
AUTOMATIC SCREWMAKER NOTE PT IN BED OBTUNDED. ON VENT/TRACH TOLERATING THE SETTINGS WELL. NO SOB, NO DISTRESS OR DISCOMFORT NOTED. ON TELE ST 112. GTF INFUSING AT 80 ML/HR GLUCERNA, 0 ML RESIDUAL NOTED. IVF NS INFUSING AT 75 ML/HR, NO S/S OF INFILTRATION NOTED. KEPT HIM DRY AND CLEAN. REPOSITION HIM Q2H, SIDE RAILS UP X 3 AND CALL LIGHT WITHIN REACH. VSS. CONTINUE TO MONITOR.
[2022-02-22] MEDS: SENNOSIDES 8.6 MG TABLET GT SCH (21:09)
[2022-02-22] MEDS: ENOXAPARIN SODIUM 40 MG/0.4 ML DISP.SYRIN SQ SCH (21:10)
--- NOTE | 2022-02-22 23:00 | NUR ---
RT Q6 neb tx Albuterol given only. No Atrovent in hospital. RN aware.
[2022-02-23] VITALS: BP 127/75
[2022-02-23] MEDS: IPRATROPIUM NEB FS 0.5 MG/2.5 ML AMPUL.NEB IH SCH ×4 (01:30→20:00)
[2022-02-23] MEDS: PIPERACILLIN /TAZOBACTAM 3.375 G in IV D5W 100 ML IV SCH ×3 (01:31→17:10)
[2022-02-23] MEDS: ALBUTEROL FS 2.5 MG/0.5 ML VIAL.NEB NEB SCH ×4 (01:53→20:00)
[2022-02-23 04:00] VITALS: BP 155/100
--- NOTE | 2022-02-23 06:55 | NUR ---
AUDIO TECHNICIAN NOTE PT IN BED OBTUNDED. NO SOB, NO DISTRESS OR DISCOMFORT NOTED. TOLERATING VENT SETTINGS WELL. KEPT HIM DRY AND CLEAN. ALL NEEDS ATTENDED. WILL ENDORSE TO DAY SHIFT NURSE FOR CONTINUE TO CARE.
[2022-02-23 07:19] LABS: BASOPHILS % (AUTO) 0.5 % (0.0-2.0); EOSINOPHILS % (AUTO) 12.7 % (0.0-6.0); HEMATOCRIT 36 % (39-51); HEMOGLOBIN 12.3 g/dL (13.5-17.5); LYMPHOCYTES # (AUTO) 1.4 K/uL (0.8-4.8); LYMPHOCYTES % (AUTO) 14.1 % (20.0-44.0); MEAN CORPUSCULAR HGB CONC 34 g/dl (31.0-36.0); MEAN CORPUSCULAR VOLUME 96 fL (80-96); MONOCYTES # (AUTO) 0.5 K/uL (0.1-1.30); MONOCYTES % (AUTO) 5.3 % (2.0-12.0); NEUTROPHILS # (AUTO) 6.7 K/uL (1.8-8.9); NEUTROPHILS % (AUTO) 67.4 % (43.0-81.0); PLATELET COUNT (AUTO) 217 K/uL (150-450); RED BLOOD CELL COUNT(AUTO) 3.76 MIL/uL (4.5-6.0)
[2022-02-23 07:37] LABS: CALCIUM, SERUM 8.9 mg/dL (8.5-10.1); CREATININE 0.9 mg/dL (0.6-1.3); MAGNESIUM 2.2 mg/dL (1.8-2.4); PHOSPHORUS 3.2 mg/dL (2.5-4.9); POTASSIUM 3.7 mmol/L (3.5-5.1)
[2022-02-23 08:00] VITALS: BP 171/86
--- NOTE | 2022-02-23 08:00 | NUR ---
RT Inhalation tx (Atrovent) not given due to med not available.
[2022-02-23] MEDS: ASCORBIC ACID 500 MG TABLET GT SCH (08:57)
[2022-02-23] MEDS: PANTOPRAZOLE 40 MG/PACK PACK GT SCH (08:57)
[2022-02-23] MEDS: CHLORHEXIDINE GLUCONATE 15 ML UDC MM SCH ×2 (08:57→17:10)
[2022-02-23] MEDS: DOCUSATE SODIUM LIQ 100 MG/10 ML UDC NG SCH (08:57)
[2022-02-23] MEDS: ZINC SULFATE 220 MG CAPSULE PO SCH (08:58)
[2022-02-23] MEDS: MULTIVITAMIN/LUTEIN/MINERALS 1 TAB PO SCH (08:58)
[2022-02-23] MEDS: CARVEDILOL 12.5 MG TABLET GT SCH ×2 (08:58→21:20)
[2022-02-23] MEDS: PROSOURCE / PROSTAT (PYXIS) 30 ML UDC GT SCH ×2 (09:03→16:57)
[2022-02-23] MEDS: AMMONIUM LACTATE 227 GM BOTTLE TP SCH ×2 (09:03→16:58)
[2022-02-23] MEDS: NYSTATIN CREAM 15 GM TUBE TP SCH ×2 (09:03→16:57)
[2022-02-23] MEDS: Z GUARD REMEDY 4 OZ OINT TP SCH (09:03)
[2022-02-23] MEDS: IV NS 0.9% 1,000 ML IV PRN (11:32)
[2022-02-23] MEDS: GLUCERNA 1.2 1,000 ML BOTTLE NG PRN (11:33)
[2022-02-23 12:00] VITALS: BP 144/88
[2022-02-23 16:00] VITALS: BP 139/88
--- NOTE | 2022-02-23 19:00 | NUR ---
RN CLOSING NOTE PATIENT IS OBTUNDED, A/OX 0-1 CONTRACTED,ON MECHANICAL VENT, HR 100-107. AFEBRILE T: 98.6,ON G-TUBE FEEDING ALL DUE MEDS GIVEN MD ORDERED KEPT CLEAN AND DRY ALL THE TIME,TURNED AND REPOSITIONED EVERY 2 HOURS,OLVERA CATH IN PLACE,HEAD OF THE BED ELEVATED ALL THE TIME,ALL NEEDS MET WILL ENDORSE HIM TO THE HEALTH CARE COACH FOR ADAM.
[2022-02-23 20:00] VITALS: BP 133/87
--- NOTE | 2022-02-23 20:00 | NUR ---
ACID OPERATOR NOTE PT IN BED OBTUNDED. ON VENT/TRACK TOLERATING THE SETTINGS WELL, NO DISTRESS OR DISCOMFORT NOTED. NO S/S OF PAIN NOTED. GTF INFUSING WELL. 0 ML RESIDUAL NOTED. ON TELE ST HR 102, F/C INTACT AND PATNET DRAINING YELLOWISH COLOR URINE. KEPT HIM DRY AND CLEAN. ALL NEEDS ATTENDED. VSS. CONTINUE TO MONITOR HIM.
[2022-02-23] MEDS: SENNOSIDES 8.6 MG TABLET GT SCH (21:19)
[2022-02-23] MEDS: ENOXAPARIN SODIUM 40 MG/0.4 ML DISP.SYRIN SQ SCH (21:21)
[2022-02-24] VITALS: BP 117/77
[2022-02-24] MEDS: IV NS 0.9% 1,000 ML IV PRN ×2 (00:31→14:58)
[2022-02-24] MEDS: PIPERACILLIN /TAZOBACTAM 3.375 G in IV D5W 100 ML IV SCH ×3 (01:29→17:21)
[2022-02-24] MEDS: ALBUTEROL FS 2.5 MG/0.5 ML VIAL.NEB NEB SCH ×4 (01:30→20:09)
[2022-02-24] MEDS: IPRATROPIUM NEB FS 0.5 MG/2.5 ML AMPUL.NEB IH SCH ×4 (01:30→20:09)
[2022-02-24 04:00] VITALS: BP 132/80
[2022-02-24] MEDS: GLUCERNA 1.2 1,000 ML BOTTLE NG PRN ×2 (06:18→17:42)
--- NOTE | 2022-02-24 06:42 | NUR ---
WINDOWS VMWARE ENGINEER NOTE PT IN BED OBTUNDED, NO DISTRESS OR DISCOMOFRT NOTED. NO S/S OF PAIN NOTED. ON TELE SR. GTF INFUSING WEL, KEPT HIM DRY AND CLEAN. ALL NEEDS ATTENDED. WILL ENDORSE TO DAY SHIFT NURSE FOR CONTINUE TO CARE.
--- NOTE | 2022-02-24 07:10 | NUR ---
ECHOCARDIOGRAPH TECH OPENING NOTE: RECEIVED PT. IN BED. PT. NON-VERBAL, OBTUNDED, RESPONDS TO PAINFUL STIMULI. NO S/S OF PAIN/DISCOMFORT AT THIS TIME. PT. ON TRACH/VENT: PORTEX #9; AC - 16; VT- 450; FIO2 - 30%; PEEP OF 5. NO S/S OF RESPIRATORY DISTRESS. DERRICK ENGINEER READS NSR. ON OLVERA CATH WITH CLEAR YELLOW URINE DRAINING BELOW THE BLADDER. PT. HAS MULTIPLE SKIN ISSUES. WILL DO WOUND TREATMENT ORDERED. PT. HAS G-TUBE, NO RESIDUAL NOTED WITH GLUCERNA RUNNING AT 80 ML/HR. IV ACCESS ON R FA #20G, PATENT AND SALINE LOCKED; KIAH MIDLINE WITH NS RUNNING AT 75 ML/HR. IV ACCESS HAS NO S/S OF INFILTRATION NOTED. SAFETY MEASURES IN PLACE: BED IN LOWEST & LOCKED POSITION, SIDE RAILS UP, HOB ELEVATED AT 30 DEGREES, BED ALARM ON, CALL LIGHT WITHIN REACH. WILL TURN AND REPOSITION IN BED AT LEAST Q2H. WILL CONTINUE TO MONITOR FOR ANY CHANGES.
[2022-02-24 07:24] LABS: EOSINOPHILS % (AUTO) 14.6 % (0.0-6.0); HEMOGLOBIN 11.7 g/dL (13.5-17.5); MONOCYTES # (AUTO) 0.6 K/uL (0.1-1.30); PLATELET COUNT (AUTO) 212 K/uL (150-450)
[2022-02-24 07:44] LABS: ALBUMIN 2.8 g/dL (3.4-5.0); BILIRUBIN,TOTAL 0.4 mg/dL (0.2-1.0); CALCIUM, SERUM 9.1 mg/dL (8.5-10.1); CREATININE 0.8 mg/dL (0.6-1.3); MAGNESIUM 2.1 mg/dL (1.8-2.4); PHOSPHORUS 3.2 mg/dL (2.5-4.9); POTASSIUM 3.5 mmol/L (3.5-5.1); TOTAL PROTEIN, SERUM 6.6 g/dL (6.4-8.2)
[2022-02-24 07:52] LABS: BASOPHILS % (AUTO) 0.2 % (0.0-2.0); HEMATOCRIT 35 % (39-51); LYMPHOCYTES # (AUTO) 1.3 K/uL (0.8-4.8); LYMPHOCYTES % (AUTO) 12.9 % (20.0-44.0); MEAN CORPUSCULAR HGB CONC 34 g/dl (31.0-36.0); MEAN CORPUSCULAR VOLUME 98 fL (80-96); MONOCYTES % (AUTO) 6.2 % (2.0-12.0); NEUTROPHILS # (AUTO) 6.6 K/uL (1.8-8.9); NEUTROPHILS % (AUTO) 66.1 % (43.0-81.0); RED BLOOD CELL COUNT(AUTO) 3.59 MIL/uL (4.5-6.0); WHITE BLOOD COUNT (AUTO) 9.9 K/uL (4.3-11.0)
[2022-02-24 08:00] VITALS: BP 149/82
[2022-02-24] MEDS: AMMONIUM LACTATE 227 GM BOTTLE TP SCH ×2 (09:20→17:18)
[2022-02-24] MEDS: Z GUARD REMEDY 4 OZ OINT TP SCH (09:21)
[2022-02-24] MEDS: NYSTATIN CREAM 15 GM TUBE TP SCH ×2 (09:22→17:17)
[2022-02-24] MEDS: CHLORHEXIDINE GLUCONATE 15 ML UDC MM SCH ×2 (09:25→17:21)
[2022-02-24] MEDS: DOCUSATE SODIUM LIQ 100 MG/10 ML UDC NG SCH (09:25)
[2022-02-24] MEDS: PANTOPRAZOLE 40 MG/PACK PACK GT SCH (09:26)
[2022-02-24] MEDS: CARVEDILOL 12.5 MG TABLET GT SCH ×2 (09:26→21:25)
[2022-02-24] MEDS: ZINC SULFATE 220 MG CAPSULE PO SCH (09:26)
[2022-02-24] MEDS: MULTIVITAMIN/LUTEIN/MINERALS 1 TAB PO SCH (09:26)
[2022-02-24] MEDS: ASCORBIC ACID 500 MG TABLET GT SCH (09:26)
[2022-02-24] MEDS: PROSOURCE / PROSTAT (PYXIS) 30 ML UDC GT SCH ×2 (09:27→17:21)
--- NOTE | 2022-02-24 09:30 | NUR ---
GEOTHERMAL OPERATING ENGINEER NOTE: [facility] CALLED AT 09 TO REPORT THAT PT.'S BLOOD CX SHOWS MRSA. DR. RODRÍGUEZ NOTIFIED.
[2022-02-24 12:00] VITALS: BP 121/83
[2022-02-24 16:00] VITALS: BP 157/91
--- NOTE | 2022-02-24 19:15 | NUR ---
FAMILY NURSE CLOSING NOTE: PT. REMAINS IN BED. PT. NON-VERBAL, OBTUNDED, RESPONDS TO PAINFUL STIMULI. NO S/S OF PAIN/DISCOMFORT AT THIS TIME. PT. ON TRACH/VENT: PORTEX #9; AC - 16; VT- 450; FIO2 - 30%; PEEP OF 5. NO S/S OF RESPIRATORY DISTRESS. POWERHOUSE MECHANIC READS NSR. OLVERA CATH DRAINED 1,000ML CLEAR YELLOW URINE THIS SHIFT. WOUND TREATMENT DONE ORDERED. PT. HAS G-TUBE, NO RESIDUAL NOTED WITH GLUCERNA RUNNING AT 80 ML/HR. TOLERATING WELL. IV ACCESS ON R FA #20G, PATENT AND SALINE LOCKED; KIAH MIDLINE WITH NS RUNNING AT 75 ML/HR. IV ACCESS HAS NO S/S OF INFILTRATION NOTED. SAFETY MEASURES MAINTAINED: BED IN LOWEST & LOCKED POSITION, SIDE RAILS UP, HOB ELEVATED AT 30 DEGREES, BED ALARM ON, CALL LIGHT WITHIN REACH. TURNED AND REPOSITIONED IN BED AT LEAST Q2H. ENDORSED CONTINUITY OF CARE TO PASTER HAT LINING RN.
--- NOTE | 2022-02-24 19:40 | NUR ---
RN OPENING NOTES: RECEIVED PT IN BED. NON-VERBAL, OBTUNDED, ON TRACH TO VENT SETTING. PT TOLERATED WELL. IV ACCESS ON RFA #20G, AND KIAH MIDLINE INTACT AND PATENT. NO S/S OF INFILTRATIONS. NS RUNNING AT 75 ML/HR. NO FACIAL GRIMACING NOTED. NO ACUTE DISTRESS. G-TUBE WELL TOLERATED. RUNNING GLUCERNA AT 80 ML/HR. ALL SAFETY MEASURES IN PLACE. BED IN LOWEST POSITION AND LOCKED. SIDE RAILS UPX3, HOB ELEVATED, BED ALARM ON, PLACE CALL LIGHT WITHIN REACH. WILL CONTINUE TO MONITOR
[2022-02-24 20:00] VITALS: BP 148/88
[2022-02-24] MEDS: SENNOSIDES 8.6 MG TABLET GT SCH (21:24)
[2022-02-24] MEDS: ENOXAPARIN SODIUM 40 MG/0.4 ML DISP.SYRIN SQ SCH (21:25)
[2022-02-25] VITALS: BP 133/87
[2022-02-25] MEDS: IPRATROPIUM NEB FS 0.5 MG/2.5 ML AMPUL.NEB IH SCH ×4 (01:44→20:25)
[2022-02-25] MEDS: ALBUTEROL FS 2.5 MG/0.5 ML VIAL.NEB NEB SCH ×4 (01:44→20:25)
[2022-02-25] MEDS: PIPERACILLIN /TAZOBACTAM 3.375 G in IV D5W 100 ML IV SCH ×3 (02:40→17:14)
[2022-02-25 04:00] VITALS: BP 139/83
--- NOTE | 2022-02-25 05:01 | NUR ---
RN NOTES: RECEIVED BLOOD CULTURES RESULT. GRAM POSITIVE RODS. NOTIFIED NAFISA SANCHEZ. NNO.
[2022-02-25] MEDS: IV NS 0.9% 1,000 ML IV PRN ×2 (05:49→19:07)
[2022-02-25 06:03] LABS: BASOPHILS % (AUTO) 0.4 % (0.0-2.0); EOSINOPHILS % (AUTO) 14.7 % (0.0-6.0); HEMATOCRIT 36 % (39-51); HEMOGLOBIN 12.1 g/dL (13.5-17.5); LYMPHOCYTES # (AUTO) 1.1 K/uL (0.8-4.8); LYMPHOCYTES % (AUTO) 11.4 % (20.0-44.0); MEAN CORPUSCULAR HGB CONC 34 g/dl (31.0-36.0); MEAN CORPUSCULAR VOLUME 96 fL (80-96); MONOCYTES # (AUTO) 0.5 K/uL (0.1-1.30); MONOCYTES % (AUTO) 5.3 % (2.0-12.0); NEUTROPHILS # (AUTO) 6.9 K/uL (1.8-8.9); NEUTROPHILS % (AUTO) 68.2 % (43.0-81.0); PLATELET COUNT (AUTO) 247 K/uL (150-450); RED BLOOD CELL COUNT(AUTO) 3.71 MIL/uL (4.5-6.0); WHITE BLOOD COUNT (AUTO) 10.1 K/uL (4.3-11.0)
[2022-02-25 06:19] LABS: CALCIUM, SERUM 9.3 mg/dL (8.5-10.1); CREATININE 0.8 mg/dL (0.6-1.3)
--- NOTE | 2022-02-25 06:38 | NUR ---
RN CLOSING NOTES: PT IN BED. NON-VERBAL, OBTUNDED, ON TRACH TO VENT SETTING. PT TOLERATED WELL. O2 SAT 100%. IV ACCESS ON RFA #20G, AND KIAH MIDLINE INTACT AND PATENT. NO S/S OF INFILTRATIONS. NS RUNNING AT 75 ML/HR. NO FACIAL GRIMACING NOTED. NO ACUTE DISTRESS. G-TUBE WELL TOLERATED. RUNNING GLUCERNA AT 80 ML/HR. ALL DUE MEDS GIVEN ORDERED. ALL SAFETY MEASURES IN PLACE. BED IN LOWEST POSITION AND LOCKED. SIDE RAILS UPX3, HOB ELEVATED, BED ALARM ON, PLACE CALL LIGHT WITHIN REACH. WILL ENDORSE TO MORNING SHIFT NURSE.
--- NOTE | 2022-02-25 07:15 | NUR ---
RN OPENING NOTE PT RECEIVED IN BED, OBTUNDED, OPENS EYES. PT ON PORTEX #9, VENT SETTING PRESCRIBED; NO S/SX OF ACUTE RESP DISTRESS NOTED AT THIS TIME. NO SOB OR COUGH, NON-LABORED AND EQUAL BREATHING. PT ATTACHED TO EXTERNAL MONITOR, ST WITH HR OF 109. KIAH MIDLINE 18G INTACT, NS INFUSING AT 75 ML/HR. GTD C/D/I WITH GLUCERNA AT 80 ML/HR; NO RESIDUAL NOTED. NO N/V/D NOTED. OLVERA INTACT AND PATENT, DRAINING VIA GRAVITY. ALL SAFETY MEASURES IN PLACE: BED IN LOWEST POSITION, CALL LIGHT WITHIN REACH, SIDE RAILS UP X3. WILL CONTINUE PLAN OF CARE.
[2022-02-25 08:00] VITALS: BP 165/90
[2022-02-25] MEDS: CHLORHEXIDINE GLUCONATE 15 ML UDC MM SCH ×2 (09:05→16:35)
[2022-02-25] MEDS: PANTOPRAZOLE 40 MG/PACK PACK GT SCH (09:05)
[2022-02-25] MEDS: CARVEDILOL 12.5 MG TABLET GT SCH ×2 (09:05→21:01)
[2022-02-25] MEDS: DOCUSATE SODIUM LIQ 100 MG/10 ML UDC NG SCH (09:05)
[2022-02-25] MEDS: ZINC SULFATE 220 MG CAPSULE PO SCH (09:05)
[2022-02-25] MEDS: MULTIVITAMIN/LUTEIN/MINERALS 1 TAB PO SCH (09:05)
[2022-02-25] MEDS: PROSOURCE / PROSTAT (PYXIS) 30 ML UDC GT SCH ×2 (09:05→16:35)
[2022-02-25] MEDS: ASCORBIC ACID 500 MG TABLET GT SCH (09:05)
[2022-02-25] MEDS: AMMONIUM LACTATE 227 GM BOTTLE TP SCH ×2 (09:14→16:45)
[2022-02-25] MEDS: NYSTATIN CREAM 15 GM TUBE TP SCH ×2 (09:16→16:45)
[2022-02-25] MEDS: Z GUARD REMEDY 4 OZ OINT TP SCH (09:16)
--- NOTE | 2022-02-25 11:00 | NUR ---
RN notes: pt remain in no SOB or pain will continue to monitor
[2022-02-25 12:00] VITALS: BP 160/79
[2022-02-25 16:00] VITALS: BP 142/93
[2022-02-25] MEDS: GLUCERNA 1.2 1,000 ML BOTTLE NG PRN (18:55)
--- NOTE | 2022-02-25 19:29 | NUR ---
STEM PROCESSING MACHINE OPERATOR CLOSING NOTE PATIENT IS OBTUNDED,ON MECHANICAL VENTV PRESCRIBED, NO SOB NOTED.,SR-ST ON TELEMONITOR THE WHOLE SHIFT,ON G-TUBE FEEDING ALL DUE MEDS GIVEN MD ORDERED KEPT CLEAN AND DRY ALL THE TIME,TURNED AND REPOSITIONED EVERY 2 HOURS,OLVERA CATH IN PLACE,HEAD OF THE BED ELEVATED ALL THE TIME,ALL NEEDS MET WILL ENDORSE HIM TO THE SHEARING SHED HAND FOR ADAM
--- NOTE | 2022-02-25 19:30 | NUR ---
PT RECEIVED AWAKE RESTING IN BED. OBTUNDED. ON VENT SETTINGS PRESCRIBED. NO SOB AND NO SIGNS OF DISTRESS. ON TELE MONITOR SHOWING ST, INCONTINENT AND HAS FC IN PLACE. GT FEEDING INFUSING AT 80ML/HR. HAS IV ACCESS ON RFA G#20 ON SL AND KIAH ML WITH NS INFUSING AT 75ML/HR. SAFETY MEASURES IN PLACE. HOB SLIGHTLY ELEVATED. SIDE RAILS UP X3, BED LOCKED IN LOWEST POSITION, BED ALARM ON, CALL LIGHT WITHIN REACH. WILL CONTINUE PLAN OF CARE.
[2022-02-25 20:00] VITALS: BP 117/76
[2022-02-25] MEDS: ENOXAPARIN SODIUM 40 MG/0.4 ML DISP.SYRIN SQ SCH (20:59)
[2022-02-25] MEDS: SENNOSIDES 8.6 MG TABLET GT SCH (21:04)
[2022-02-26] VITALS: BP 134/84
[2022-02-26] MEDS: PIPERACILLIN /TAZOBACTAM 3.375 G in IV D5W 100 ML IV SCH ×3 (01:04→17:45)
[2022-02-26] MEDS: IPRATROPIUM NEB FS 0.5 MG/2.5 ML AMPUL.NEB IH SCH ×4 (01:20→20:15)
[2022-02-26] MEDS: ALBUTEROL FS 2.5 MG/0.5 ML VIAL.NEB NEB SCH ×4 (01:20→20:15)
[2022-02-26 04:00] VITALS: BP 124/64
--- NOTE | 2022-02-26 07:01 | NUR ---
PT ASLEEP RESTING IN BED. OBTUNDED. ON VENT SETTINGS PRESCRIBED. NO SOB AND NO SIGNS OF DISTRESS. ON TELE MONITOR SHOWING ST, INCONTINENT AND HAS FC IN PLACE. GT FEEDING INFUSING AT 80ML/HR. HAS IV ACCESS ON RFA G#20 ON SL AND KIAH ML WITH NS INFUSING AT 75ML/HR. DUE MEDS GIVEN. NEEDS ATTENDED. SAFETY MEASURES MAINTAINED. HOB SLIGHTLY ELEVATED. SIDE RAILS UP X3, BED LOCKED IN LOWEST POSITION, BED ALARM ON, CALL LIGHT WITHIN REACH. WILL ENDORSE TO NEXT NURSE ON DUTY FOR CONTINUITY OF CARE.
[2022-02-26 08:00] VITALS: BP 142/99
[2022-02-26] MEDS: CHLORHEXIDINE GLUCONATE 15 ML UDC MM SCH ×2 (08:29→16:10)
[2022-02-26] MEDS: DOCUSATE SODIUM LIQ 100 MG/10 ML UDC NG SCH (08:29)
[2022-02-26] MEDS: ZINC SULFATE 220 MG CAPSULE PO SCH (08:30)
[2022-02-26] MEDS: PROSOURCE / PROSTAT (PYXIS) 30 ML UDC GT SCH ×2 (08:30→16:10)
[2022-02-26] MEDS: CARVEDILOL 12.5 MG TABLET GT SCH ×2 (08:30→22:09)
[2022-02-26] MEDS: MULTIVITAMIN/LUTEIN/MINERALS 1 TAB PO SCH (08:30)
[2022-02-26] MEDS: PANTOPRAZOLE 40 MG/PACK PACK GT SCH (08:30)
[2022-02-26] MEDS: ASCORBIC ACID 500 MG TABLET GT SCH (08:31)
[2022-02-26] MEDS: Z GUARD REMEDY 4 OZ OINT TP PRN (08:40)
[2022-02-26] MEDS: NYSTATIN CREAM 15 GM TUBE TP SCH ×2 (08:40→16:10)
[2022-02-26] MEDS: Z GUARD REMEDY 4 OZ OINT TP SCH (08:41)
[2022-02-26] MEDS: AMMONIUM LACTATE 227 GM BOTTLE TP SCH ×2 (08:42→16:11)
[2022-02-26] MEDS: IV NS 0.9% 1,000 ML IV PRN (09:10)
[2022-02-26 12:00] VITALS: BP 128/82
[2022-02-26] MEDS: GLUCERNA 1.2 1,000 ML BOTTLE NG PRN (13:39)
[2022-02-26] MEDS ORDERED: VANCOMYCIN 1.25 GM in IV D5W 250 ML IV ONE ×2 (14:30→15:00)
[2022-02-26 15:00] LABS: CREATININE 0.9 mg/dL (0.6-1.3); POTASSIUM 3.6 mmol/L (3.5-5.1)
[2022-02-26 16:16] VITALS: BP 135/85
--- NOTE | 2022-02-26 18:26 | NUR ---
RN CLOSING NOTE PATIENT IS OBTUNDED,ON MECHANICAL VENTV PRESCRIBED, NO SOB NOTED.,SR-ST ON TELEMONITOR THE WHOLE SHIFT,ON G-TUBE FEEDING ALL DUE MEDS GIVEN MD ORDERED KEPT CLEAN AND DRY ALL THE TIME,TURNED AND REPOSITIONED EVERY 2 HOURS,OLVERA CATH IN PLACE,HEAD OF THE BED ELEVATED ALL THE TIME,ALL NEEDS MET WILL ENDORSE H QUANTITATIVE ANALYST DEVELOPER NURSE FOR ADAM
[2022-02-26 20:00] VITALS: BP 140/93
--- NOTE | 2022-02-26 20:00 | NUR ---
RN NOTE RECEIVED PT WITH TRACH CONNECTED TO VENT. NOT IN ANY DISTRESS. OBTUNDED. SR ON TELE MONITOR WITH HR 95. KIAH MIDLINE PATENT AND INTACT. NS RUNNING AT 75ML/HR. GT PATENT AND IN PLACE,KEPT HOB ELEVATED. OLVERA DRAINING YELLOW URINE OUTPUT. WILL CONTINUE TO MONITOR.
[2022-02-26] MEDS: ENOXAPARIN SODIUM 40 MG/0.4 ML DISP.SYRIN SQ SCH (22:08)
[2022-02-26] MEDS: SENNOSIDES 8.6 MG TABLET GT SCH (22:09)
[2022-02-26] MEDS: VANCOMYCIN 1 GM in IV D5W 250 ML IV SCH (22:09)
[2022-02-27] VITALS: BP 123/79
[2022-02-27] MEDS: PIPERACILLIN /TAZOBACTAM 3.375 G in IV D5W 100 ML IV SCH ×2 (01:36→09:01)
[2022-02-27] MEDS: IPRATROPIUM NEB FS 0.5 MG/2.5 ML AMPUL.NEB IH SCH ×3 (01:39→13:35)
[2022-02-27] MEDS: ALBUTEROL FS 2.5 MG/0.5 ML VIAL.NEB NEB SCH ×3 (01:39→13:35)
[2022-02-27] MEDS: IV NS 0.9% 1,000 ML IV PRN (02:16)
[2022-02-27 04:00] VITALS: BP 117/94
[2022-02-27 06:16] LABS: CALCIUM, SERUM 8.7 mg/dL (8.5-10.1); CREATININE 0.8 mg/dL (0.6-1.3); POTASSIUM 3.4 mmol/L (3.5-5.1)
[2022-02-27] MEDS: VANCOMYCIN 1 GM in IV D5W 250 ML IV SCH ×2 (06:25→14:55)
--- NOTE | 2022-02-27 06:44 | NUR ---
RN NOTE PT TOLERATES VENT SETTINGS. NO SIGNS OF DISTRESS. PT OPEN EYES TO STIMULI. REMAIN AFEBRILE. GT FEEDING TOLERATING WELL, NO RESIDUALS NOTED. HOB REMAIN ELEVATED. TURNED AND REPOSITIONED. OLVERA CATH DRAINING WELL. ENDORSED TO FAZAL FOR ADAM.
[2022-02-27 07:00] LABS: BASOPHILS % (AUTO) 0.3 % (0.0-2.0); EOSINOPHILS % (AUTO) 16.5 % (0.0-6.0); HEMATOCRIT 34 % (39-51); HEMOGLOBIN 11.6 g/dL (13.5-17.5); LYMPHOCYTES # (AUTO) 0.9 K/uL (0.8-4.8); MEAN CORPUSCULAR HGB CONC 34 g/dl (31.0-36.0); MEAN CORPUSCULAR VOLUME 97 fL (80-96); MONOCYTES # (AUTO) 0.5 K/uL (0.1-1.30); MONOCYTES % (AUTO) 6.4 % (2.0-12.0); NEUTROPHILS # (AUTO) 4.7 K/uL (1.8-8.9); NEUTROPHILS % (AUTO) 64.8 % (43.0-81.0); PLATELET COUNT (AUTO) 259 K/uL (150-450); WHITE BLOOD COUNT (AUTO) 7.3 K/uL (4.3-11.0)
--- NOTE | 2022-02-27 07:19 | NUR ---
RN OPEN NOTE RECEIVED PT IN BED. NON-VERBAL, OBTUNDED, ON TRACH TO VENT SETTING. PT TOLERATED WELL. IV ACCESS ON RFA #20G, AND KIAH MIDLINE INTACT AND NO S/S OF INFILTRATIONS. NS RUNNING AT 75 ML/HR. NO FACIAL GRIMACING NOTED. NO ACUTE DISTRESS. G-TUBE WELL TOLERATED. RUNNING GLUCERNA AT 80 ML/HR. ALL SAFETY MEASURES IN PLACE. BED IN LOWEST POSITION AND LOCKED. SIDE RAILS UPX3, HOB ELEVATED, BED ALARM ON, PLACE CALL LIGHT WITHIN REACH. WILL CONTINUE TO MONITOR
[2022-02-27 08:00] VITALS: BP 103/64
[2022-02-27] MEDS: PROSOURCE / PROSTAT (PYXIS) 30 ML UDC GT SCH ×2 (08:12→16:02)
[2022-02-27] MEDS: ZINC SULFATE 220 MG CAPSULE PO SCH (08:12)
[2022-02-27] MEDS: MULTIVITAMIN/LUTEIN/MINERALS 1 TAB PO SCH (08:12)
[2022-02-27] MEDS: ASCORBIC ACID 500 MG TABLET GT SCH (08:12)
[2022-02-27] MEDS: DOCUSATE SODIUM LIQ 100 MG/10 ML UDC NG SCH (08:12)
[2022-02-27] MEDS: CHLORHEXIDINE GLUCONATE 15 ML UDC MM SCH ×2 (08:12→16:02)
[2022-02-27] MEDS: PANTOPRAZOLE 40 MG/PACK PACK GT SCH (08:12)
[2022-02-27] MEDS: CARVEDILOL 12.5 MG TABLET GT SCH (08:12)
[2022-02-27] MEDS: Z GUARD REMEDY 4 OZ OINT TP SCH (08:22)
[2022-02-27] MEDS: NYSTATIN CREAM 15 GM TUBE TP SCH ×2 (08:22→16:06)
[2022-02-27] MEDS: AMMONIUM LACTATE 227 GM BOTTLE TP SCH ×2 (08:23→16:02)
[2022-02-27] MEDS: GLUCERNA 1.2 1,000 ML BOTTLE NG PRN (09:05)
[2022-02-27] MEDS ORDERED: VANC1PLA9 IV (10:41)
[2022-02-27] MEDS ORDERED: POTASSIUM CHLORIDE 20 MEQ POWDER PACKET PO ONE (11:00)
[2022-02-27 12:32] VITALS: BP 121/76
[2022-02-27 16:12] VITALS: BP 121/77
--- NOTE | 2022-02-27 16:50 | NUR ---
RN NOTE PATIENT IS AT STABLE CONDITION , RECEIVED AN ORDER TO DISCHARGE THE PATIENT , DISCHARGE INSTRUCTIONS WERE PROVIDED VERBALLY TO THE FIORDALIZA BUNCH RN AND VERBAL AND WRITTEN DISCHARGE INSTRUCTIONS PROVIDED TO THE EMT
== END 2022-02-27 17:11 | DRG 720 ==
LOC: ER 16:11 → TELE 21:48 → TELE1 23:18 → TELE-TD 23:31 → TELE1 02-17 11:21
PROVIDERS: ADMIT Nurse Practitioner Acute Care; ATTEND Internal Medicine
PROC: 5A1955Z Respiratory Ventilation, Greater than 96 Consecutive Hours (ICD-10-PCS; principal; 2022-02-15)
PROC: 05HA33Z Insertion of Infusion Device into Left Brachial Vein, Percutaneous Approach (ICD-10-PCS; 2022-02-16)
DX: A41.9 Sepsis, unspecified organism (principal); G93.41 Metabolic encephalopathy; I50.23 Acute on chronic systolic (congestive) heart failure; J15.6 Pneumonia due to other Gram-negative bacteria; R53.2 Functional quadriplegia; Z99.11 Dependence on respirator [ventilator] status; L89.626 Pressure-induced deep tissue damage of left heel; G93.1 Anoxic brain damage, not elsewhere classified; Z93.0 Tracheostomy status; J96.10 Chronic respiratory failure, unspecified whether with hypoxia or hypercapnia; E87.1 Hypo-osmolality and hyponatremia; D75.1 Secondary polycythemia; Z93.1 Gastrostomy status; R13.10 Dysphagia, unspecified; Z20.822 Contact with and (suspected) exposure to COVID-19; Z86.16 Personal history of COVID-19; Z74.01 Bed confinement status; Z86.74 Personal history of sudden cardiac arrest; F41.9 Anxiety disorder, unspecified; Z79.01 Long term (current) use of anticoagulants; Z79.51 Long term (current) use of inhaled steroids; Z79.899 Other long term (current) drug therapy; L27.0 Generalized skin eruption due to drugs and medicaments taken internally; T50.905A Adverse effect of unspecified drugs, medicaments and biological substances, initial encounter; Y92.9 Unspecified place or not applicable; L85.3 Xerosis cutis; D68.59 Other primary thrombophilia; J98.11 Atelectasis; L97.429 Non-pressure chronic ulcer of left heel and midfoot with unspecified severity; R56.9 Unspecified convulsions; A49.02 Methicillin resistant Staphylococcus aureus infection, unspecified site
CPT/HCPCS: 31720; 36410; 36415; 71045-TC; 80048-TC; 80053-TC; 80076-TC; 80202-TC; 81001; 83605-TC; 83735-TC; 84100-TC; 84484-TC; 85025-TC; 85730-TC; 86803; 87040-TC; 87081-TC; 87086-TC; 87806; 93307-TC; 94003-TC; 94760-TC; 94762-TC; 94799-TC; 95819-TC; A4623; A6403; A7526; C9803; G0378; J1650; J2060; J2543; J3370; J3490; J7030; J7050; J7060

== ENCOUNTER 2022-03-15 11:16 | Inpatient (IN) | payer OTHER ==
[~2022-03-15] VITALS: Ht 172.7 cm; Wt 83.9 kg
[~2022-03-15 11:16] MED LIST changes: +CARV12.52 GT; -CARV3.122 GT; +VANC1PLA9 IV
--- NOTE | 2022-03-15 11:20 | NUR ---
GUILLERMO FROM [facility] FOR HYPOTENSION. PLACED ON BED, AWAKE NOT RESPONDING TO VERBAL STIMULI, ATTACHED TO MONITOR SHOWS NORMAL SINUS RHYTHM AR-88, BP- 102/68. ASBESTOS PIPE SUPERVISOR AT BEDSIDE SUCTION SECRETION DONE ATTACHED PATIENT TO VENTILATOR AC/VC FIO2- 30%, VT- 500 RATE- 16 SATURATING AT 98%
--- NOTE | 2022-03-15 11:34 | NUR ---
PT IS ADMITTED IN ER VIA GURNEY DUE TO LOW BLOOD PRESSURE. PLACED INTO MECHANICAL VENT VIA TRACH WITH SETTINGS BELOW ORDERED: AC 16 VT 500 FIO2 30% NO PEEP BREATH SOUNDS DIMINISHED BILATERAL, SXN SMALL AMNT THICK WHITISH SECRETIONS. VENT PLUGGED INTO RED OUTLET WITH ALARMS ON AND FUNCTIONING. BVM AND SPARE TRACH @ BEDSIDE. Addendum: 03/15/22 at 1139 by BRIGHT SPARKS RT Amended: Links added.
--- NOTE | 2022-03-15 11:56 | NUR ---
BLOOD DRAWN COVID19 SWAB AND SENT TO LAB
[2022-03-15] MEDS ORDERED: PIPERACILLIN /TAZOBACTAM 3.375 G in IV D5W 50 ML IV ONE (12:00)
[2022-03-15] MEDS ORDERED: ACETAMINOPHEN 650 MG/SUPP.RECT RC ONE ×2 (12:00→12:16)
[2022-03-15] MEDS ORDERED: IV NS 0.9% 1,000 ML BAG IV ONE (12:00)
[2022-03-15 12:04] LABS: BASOPHILS # (AUTO) 0.1 K/uL (0.0-0.2); BASOPHILS % (AUTO) 0.2 % (0.0-2.0); HEMATOCRIT 43 % (39-51); HEMOGLOBIN 14.2 g/dL (13.5-17.5); LYMPHOCYTES # (AUTO) 0.8 K/uL (0.8-4.8); LYMPHOCYTES % (AUTO) 3.3 % (20.0-44.0); MEAN CORPUSCULAR HGB CONC 33 g/dl (31.0-36.0); MEAN CORPUSCULAR VOLUME 99 fL (80-96); MONOCYTES # (AUTO) 1.2 K/uL (0.1-1.30); MONOCYTES % (AUTO) 4.6 % (2.0-12.0); NEUTROPHILS # (AUTO) 23.1 K/uL (1.8-8.9); NEUTROPHILS % (AUTO) 91.9 % (43.0-81.0); PLATELET COUNT (AUTO) 412 K/uL (150-450); WHITE BLOOD COUNT (AUTO) 25.1 K/uL (4.3-11.0)
--- NOTE | 2022-03-15 12:13 | NUR ---
MOVE SHEET SUBMITTED
[2022-03-15 12:14] LABS: CALCIUM, SERUM 9.8 mg/dL (8.5-10.1); CARBON DIOXIDE 24 mmol/L (21-32); CHLORIDE 96 mmol/L (98-107); CREATININE 3.4 mg/dL (0.6-1.3); GLUCOSE 165 mg/dL (74-106); POTASSIUM 5.3 mmol/L (3.5-5.1); SODIUM SERUM 132 mmol/L (136-145); UREA NITROGEN, BLOOD 67 mg/dL (7-18)
[2022-03-15] MEDS ORDERED: PIPERACILLIN /TAZOBACTAM 3.375 G VIAL IV ONE (12:16)
[2022-03-15 12:29] LABS: ALANINE AMINOTRANSFERASE 74 U/L (12-78); ALBUMIN 3.1 g/dL (3.4-5.0); ALKALINE PHOSPHATASE 102 U/L (46-116); ASPARTATE AMINOTRANSFERASE 40 U/L (15-37); BILIRUBIN,DIRECT 0.3 mg/dL (0.0-0.2); BILIRUBIN,TOTAL 0.8 mg/dL (0.2-1.0); TOTAL PROTEIN, SERUM 7.7 g/dL (6.4-8.2)
--- NOTE | 2022-03-15 13:38 | NUR ---
urine sample sent to lab
[2022-03-15] MEDS ORDERED: Medication Not On Formulary EA (Ipratropium/Albuterol Sulfate (Combivent Respimat 20-100 IH PRN (15:00)
[2022-03-15] MEDS ORDERED: ALBUTEROL FS 2.5 MG/0.5 ML VIAL.NEB NEB PRN (15:00)
[2022-03-15] MEDS ORDERED: IPRATROPIUM NEB FS 0.5 MG/2.5 ML AMPUL.NEB NEB PRN (15:00)
[2022-03-15] MEDS ORDERED: CLONIDINE HCL 0.1 MG TABLET GT PRN (15:00)
[2022-03-15] MEDS: IV NS 0.9% 1,000 ML IV SCH (15:00)
[2022-03-15] MEDS ORDERED: Z GUARD REMEDY 4 OZ OINT TP PRN (15:00)
[2022-03-15] MEDS ORDERED: MAG HYDROX/AL HYDROX/SIMETH 30 ML UDC PO PRN (15:00)
[2022-03-15] MEDS ORDERED: MORPHINE SULFATE INJ 2 MG/ML DISP.SYRIN IV PRN (15:00)
[2022-03-15] MEDS ORDERED: ONDANSETRON HCL/PF 4 MG/2 ML VIAL IVP PRN (15:00)
[2022-03-15 16:11] LABS: BILIRUBIN,URINE NEGATIVE (NEGATIVE); COLOR,URINE YELLOW (YELLOW); LEUKOCYTE ESTERASE ,URINE 2+ (NEGATIVE); NITRITE, URINE NEGATIVE (NEGATIVE); PROTEIN,URINE 2+ mg/dl (NEGATIVE); UGLUCOSE NEGATIVE (NEGATIVE); UROBILINOGEN,URINE 0.2 EU/dL (0.2)
[2022-03-15] MEDS: CARVEDILOL 12.5 MG TABLET GT SCH (17:00)
[2022-03-15] MEDS: NYSTATIN CREAM 15 GM TUBE TP SCH (17:00)
[2022-03-15 17:46] LABS: RBC,URINE 51-80 /HPF (0-2)
[2022-03-15 17:47] LABS: BACTERIA,URINE 3+ /HPF (None Seen); SQUAMOUS EPITHELIAL CELL,UR 0-2 /HPF (None Seen); WBC,URINE 21-50 /HPF (0-3)
[2022-03-15] MEDS ORDERED: Medication Not On Formulary EA (Ipratropium/Albuterol Sulfate (Combivent Respimat 20-100 IH SCH (18:00)
[2022-03-15] MEDS ORDERED: CEFEPIME 1 GM in IV D5W 50 ML IV SCH (18:00)
--- NOTE | 2022-03-15 18:37 | NUR ---
GOT BED 107
--- NOTE | 2022-03-15 19:58 | NUR ---
REPORT GIVEN TO CLAUDIA RODRIGUEZ ROOM 107 FOR ADAM
--- NOTE | 2022-03-15 20:05 | NUR ---
PLASTIC MIXER NOTE RECEIVED PATIENT FROM ER VIA BRENDARAUREA ACCOMPANIED BY ER STAFF, VIA ACLS PROTOCOL. PATIENT AO X0, SATURATION AT 99% ON ON MECHANICAL VENT WITH CURRENT SETTING AC 16, TC 500 FIO2 30% PEEP 0, SR ON THE MONITOR.RFA #24 G AND L HAND #20G PATENT AND FLUSHING WELL, STARTED IV FLUID OF NS AT 75 ML/HR. GTUBE IN PLACE, CLAMPED. COMPREHENSIVE ASSESSMENT DONE, WITH ABDOMINAL RASH AND B LOWER EXTREMITIES SKIN ISSUES, PICTURES TAKEN AND PLACED ON CHART, WITH OLVERA CATHER DRAINING TO TEA COLORED URINE. SAFETY MEASURES IMPLEMENTED, HOB ELEVATED, BED IS LOCKED AND AT LOWEST POSITION, CALL LIGHT WITHIN REACH OF PATIENT. WILL CONT TO MONITOR AND CARRY OUT MD ORDERS.
[2022-03-15] MEDS: ALBUTEROL FS 2.5 MG/0.5 ML VIAL.NEB NEB SCH (20:16)
[2022-03-15] MEDS: IPRATROPIUM NEB FS 0.5 MG/2.5 ML AMPUL.NEB NEB SCH (20:16)
[2022-03-15] MEDS: MIDODRINE HCL (5MG) 5 MG TABLET PO SCH (22:09)
[2022-03-15] MEDS: CHLORHEXIDINE GLUCONATE 15 ML UDC MM SCH (22:09)
[2022-03-15] MEDS: SENNOSIDES 8.6 MG TABLET GT SCH (22:09)
[2022-03-15] MEDS: clonazePAM 0.5 MG TABLET GT SCH (22:11)
[2022-03-15] MEDS: HEPARIN SODIUM, PORCINE 5000 UNITS/1 ML VIAL SQ SCH (22:14)
[2022-03-15] MEDS ORDERED: CEFEPIME 1 GM VIAL ONE (22:29)
[2022-03-16] MEDS: IPRATROPIUM NEB FS 0.5 MG/2.5 ML AMPUL.NEB NEB SCH ×4 (01:56→19:50)
[2022-03-16] MEDS: ALBUTEROL FS 2.5 MG/0.5 ML VIAL.NEB NEB SCH ×4 (01:56→19:50)
[2022-03-16 04:00] VITALS: BP 106/60
[2022-03-16 07:04] LABS: BASOPHILS % (AUTO) 0.2 % (0.0-2.0); EOSINOPHILS % (AUTO) 1.9 % (0.0-6.0); HEMATOCRIT 35 % (39-51); HEMOGLOBIN 11.7 g/dL (13.5-17.5); LYMPHOCYTES # (AUTO) 1.1 K/uL (0.8-4.8); LYMPHOCYTES % (AUTO) 6.3 % (20.0-44.0); MEAN CORPUSCULAR HGB CONC 33 g/dl (31.0-36.0); MEAN CORPUSCULAR VOLUME 98 fL (80-96); MONOCYTES # (AUTO) 0.8 K/uL (0.1-1.30); MONOCYTES % (AUTO) 4.7 % (2.0-12.0); NEUTROPHILS # (AUTO) 14.7 K/uL (1.8-8.9); NEUTROPHILS % (AUTO) 86.9 % (43.0-81.0); PLATELET COUNT (AUTO) 283 K/uL (150-450); RED BLOOD CELL COUNT(AUTO) 3.58 MIL/uL (4.5-6.0); WHITE BLOOD COUNT (AUTO) 16.9 K/uL (4.3-11.0)
[2022-03-16 07:09] LABS: ALBUMIN 2.6 g/dL (3.4-5.0); BILIRUBIN,TOTAL 0.5 mg/dL (0.2-1.0); CREATININE 1.4 mg/dL (0.6-1.3); MAGNESIUM 2.5 mg/dL (1.8-2.4); PHOSPHORUS 3.7 mg/dL (2.5-4.9); POTASSIUM 3.8 mmol/L (3.5-5.1); TOTAL PROTEIN, SERUM 6.7 g/dL (6.4-8.2)
--- NOTE | 2022-03-16 07:10 | NUR ---
RN OPENING NOTES RECEIVED REPORT FROM [facility] RN TRES. PATIENT REMAINS IN ROOM, OBTUNDED. OXYGEN SATURATION IN HIGH 90S. PATIENT TOLERATING VENTILATOR SETTINGS WELL. IV ACCESS ON RIGHT FOREARM RUNNING FLUIDS ORDERED, ADDITIONAL ACCESS ON LEFT HAND 20 GAUGE.. OLVERA CATHETER DRAINING OUTPUT. SKIN ALTERATIONS DOCUMENTED IN PHYSICAL CHART AT THE NURSES STATION. SAFETY MESURES IMPLEMENTED, SIDE RAILS UP, CALL LIGHT IN REACH, BED IN LOWEST LOCKED POSITION. WILL CONTINUE PLAN OF CARE AND ANTICIPATE NEEDS.
--- NOTE | 2022-03-16 07:10 | NUR ---
RN NOTE REPORT GIVEN TO MARLY FISH RN FOR CONTINUITY OF CARE. PT STABLE WITH V/S WNL.
[2022-03-16 08:00] VITALS: BP 99/59
[2022-03-16] MEDS ORDERED: ENOXAPARIN SODIUM 30 MG/0.3 ML DISP.SYRIN SQ SCH (09:00)
[2022-03-16] MEDS: CHLORHEXIDINE GLUCONATE 15 ML UDC MM SCH ×2 (09:45→16:51)
[2022-03-16] MEDS: MIDODRINE HCL (5MG) 5 MG TABLET PO SCH ×3 (09:45→16:51)
[2022-03-16] MEDS: DOCUSATE SODIUM LIQ 100 MG/10 ML UDC GT SCH (09:45)
[2022-03-16] MEDS: clonazePAM 0.5 MG TABLET GT SCH ×2 (09:46→21:23)
[2022-03-16] MEDS: CARVEDILOL 12.5 MG TABLET GT SCH ×2 (09:47→16:51)
[2022-03-16] MEDS: ASCORBIC ACID 500 MG TABLET GT SCH (09:47)
[2022-03-16] MEDS: CEFEPIME 1 GM in IV D5W 50 ML IV SCH ×2 (09:47→21:23)
[2022-03-16] MEDS: HEPARIN SODIUM, PORCINE 5000 UNITS/1 ML VIAL SQ SCH ×2 (09:48→21:24)
[2022-03-16] MEDS: IV NS 0.9% 1,000 ML IV SCH (09:49)
[2022-03-16] MEDS: NYSTATIN CREAM 15 GM TUBE TP SCH ×2 (10:27→16:51)
[2022-03-16 12:00] VITALS: BP 95/56
[2022-03-16] MEDS: ACETAMINOPHEN 650 MG/20.3 ML UDC PO PRN (12:41)
--- NOTE | 2022-03-16 12:41 | NUR ---
TYLENOL ADMINISTERED FOR TEMPERATURE OF 100.2. PATIENT HAS BEEN DRESSED IN MINIMAL CLOTHING. WILL RECHECK TEMPERATURE IN ONE HOUR.
--- NOTE | 2022-03-16 13:41 | NUR ---
TEMPERATURE ON RECHECK 98.9 DEGREES FAHRENHEIT
[2022-03-16 16:00] VITALS: BP 107/61
--- NOTE | 2022-03-16 18:25 | NUR ---
RN CLOSING NOTES PATIENT REMAINS IN ROOM, OBTUNDED. OXYGEN SATURATION IN HIGH 90S. PATIENT TOLERATING VENTILATOR SETTINGS WELL. IV ACCESS ON RIGHT FOREARM RUNNING FLUIDS ORDERED, ADDITIONAL ACCESS ON LEFT HAND 20 GAUGE.. OLVERA CATHETER DRAINING OUTPUT. SKIN ALTERATIONS DOCUMENTED IN PHYSICAL CHART AT THE NURSES STATION. SAFETY MEASURES IMPLEMENTED, SIDE RAILS UP, CALL LIGHT IN REACH, BED IN LOWEST LOCKED POSITION. WILL ENDORSE TO NIGHTSHIFT RN FOR CONTINUATION OF CARE.
--- NOTE | 2022-03-16 19:40 | NUR ---
RN OPENING NOTES RECEIVED PATIENT IN BED, OBTUNDED. OXYGEN SATURATION IN 100%. PATIENT TOLERATING VENTILATOR SETTINGS WELL. IV ACCESS ON RIGHT FOREARM RUNNING FLUIDS ORDERED, ADDITIONAL ACCESS ON LEFT HAND 20 GAUGE. OLVERA CATHETER DRAINING OUTPUT. SAFETY MEASURES IMPLEMENTED, SIDE RAILS UP, CALL LIGHT IN REACH, BED IN LOWEST LOCKED POSITION. WILL CONTINUE TO MONITOR PATIENT THROUGHOUT THE SHIFT.
[2022-03-16 20:00] VITALS: BP 106/70
[2022-03-16] MEDS: SENNOSIDES 8.6 MG TABLET GT SCH (21:23)
[2022-03-17] VITALS: BP 111/68
--- NOTE | 2022-03-17 | NUR ---
RN NOTE NOTED PT WITH LOW GRADE FEVER AT 100.0, COOLING PACKS PROVIDED, COMFORT MEASURES DONE.
--- NOTE | 2022-03-17 00:12 | NUR ---
RN NOTE RECEIVED PT WITH GT IN PLACED NO FEEDING RUNNING, PER AM MD RECOMMENDS TO START FEEDING OF GLUCERNA 1.2 AT 20 ML AND ADVANCE TO 65 ML/HR. FOLLOWED UP WITH POULTRY SEXER MELISSA GALVAN TO START FEEDING THIS SHIFT. ORDER TAKEN AND CARRIED OUT. AWAITING FOR VERIFICATION.
[2022-03-17] MEDS ORDERED: GLUCERNA 1.2 1,000 ML BOTTLE NG PRN (00:30)
[2022-03-17] MEDS: IPRATROPIUM NEB FS 0.5 MG/2.5 ML AMPUL.NEB NEB SCH ×4 (01:50→19:55)
[2022-03-17] MEDS: ALBUTEROL FS 2.5 MG/0.5 ML VIAL.NEB NEB SCH ×4 (01:50→19:55)
[2022-03-17 04:00] VITALS: BP 120/71
[2022-03-17] MEDS: GLUCERNA 1.2 1,000 ML BOTTLE GT PRN (05:29)
[2022-03-17 06:33] LABS: BASOPHILS % (AUTO) 0.4 % (0.0-2.0); EOSINOPHILS % (AUTO) 6.4 % (0.0-6.0); HEMATOCRIT 33 % (39-51); HEMOGLOBIN 10.8 g/dL (13.5-17.5); LYMPHOCYTES % (AUTO) 8.1 % (20.0-44.0); MEAN CORPUSCULAR HGB CONC 33 g/dl (31.0-36.0); MEAN CORPUSCULAR VOLUME 99 fL (80-96); MONOCYTES # (AUTO) 0.7 K/uL (0.1-1.30); MONOCYTES % (AUTO) 5.8 % (2.0-12.0); NEUTROPHILS % (AUTO) 79.3 % (43.0-81.0); PLATELET COUNT (AUTO) 305 K/uL (150-450); WHITE BLOOD COUNT (AUTO) 12.6 K/uL (4.3-11.0)
--- NOTE | 2022-03-17 06:41 | NUR ---
HALI RN CLOSING NOTES PATIENT REMAINS IN ROOM, OBTUNDED. PATIENT TOLERATING VENTILATOR SETTINGS WELL SATING 98%. IV ACCESS ON LEFT HAND 20 GAUGE AND RIGHT FOREARM RUNNING FLUIDS ORDERED. OLVERA CATHETER DRAINING OUTPUT. GT FEEDING STARTED RUNNING AT 20 ML/HR, WILL ADVANCE TOLERATED, SAFETY MEASURES IMPLEMENTED, SIDE RAILS UP, CALL LIGHT IN REACH, BED IN LOWEST LOCKED POSITION. WILL ENDORSE TO AM SHIFT NURSE FOR CONTINUITY OF CARE.
[2022-03-17 07:11] LABS: CALCIUM, SERUM 8.8 mg/dL (8.5-10.1); CREATININE 1.1 mg/dL (0.6-1.3); MAGNESIUM 2.1 mg/dL (1.8-2.4); PHOSPHORUS 3.2 mg/dL (2.5-4.9); POTASSIUM 3.7 mmol/L (3.5-5.1)
--- NOTE | 2022-03-17 07:30 | NUR ---
RN NOTE RECEIVED PATIENT IN BED RESTING,OPEN EYES,CONTRACTED,OBTUNDED ON MECHANICAL VENT SETTING PRESCRIBED, ON G-TUBE FEEDING,GLUCERNA 1.2 20CC/HR,CHECKED PLACEMENT IN PLACE,NO RESIDUAL NOTED,IV SITE IS ON RIGHT FOREARM AND LEFT HAND INTACT PATENT,OLVERA CATH IN PLACE URINE DRAINING YELLOW BY GRAVITY,SAFETY MEASURE IMPLEMENT BED IN LOW POSITON,HEAD OF THE BED ELEVATED CONTINUE TO MONITOR.
[2022-03-17] MEDS: clonazePAM 0.5 MG TABLET GT SCH ×2 (08:35→20:57)
[2022-03-17] MEDS: HEPARIN SODIUM, PORCINE 5000 UNITS/1 ML VIAL SQ SCH ×2 (08:35→20:59)
[2022-03-17] MEDS: MIDODRINE HCL (5MG) 5 MG TABLET PO SCH ×3 (08:39→16:14)
[2022-03-17] MEDS: DOCUSATE SODIUM LIQ 100 MG/10 ML UDC GT SCH (08:40)
[2022-03-17] MEDS: ASCORBIC ACID 500 MG TABLET GT SCH (08:40)
[2022-03-17] MEDS: CARVEDILOL 12.5 MG TABLET GT SCH ×2 (08:40→16:14)
[2022-03-17] MEDS: CEFEPIME 1 GM in IV D5W 50 ML IV SCH ×2 (08:45→20:57)
[2022-03-17] MEDS: CHLORHEXIDINE GLUCONATE 15 ML UDC MM SCH ×2 (08:46→16:14)
[2022-03-17 08:51] VITALS: BP 119/73
--- NOTE | 2022-03-17 09:39 | NUR ---
PATIENT IS AWAKE, UNABLE TO ASSESS ORIENTATION DUE TO NON VERBAL BUT RESPONSE TO STIMULI. VITAL SIGNS ARE STABLE. NO SIGNS OF DISTRESS.
[2022-03-17] MEDS: NYSTATIN CREAM 15 GM TUBE TP SCH ×2 (10:19→16:15)
[2022-03-17 12:00] VITALS: BP 121/72
[2022-03-17 16:00] VITALS: BP 122/75
--- NOTE | 2022-03-17 17:03 | NUR ---
RT PATIENT REMAINS TRACHED ON [facility] VENT WITH ORDERED SETTINGS LAUREN WELL. PATIENT IN NO DISTRESS THROUGHOUT SHIFT. AIRWAY SUCTIONED AND PATENT. AMBU BAG AND BACK UP TRACH AT BEDSIDE. PATIENT AWAKE, NON RESPONSIVE TO VERBAL COMMANDS, NO SOB Addendum: 03/17/22 at 1705 by BRYCE RAINEY RT Amended: Links added.
--- NOTE | 2022-03-17 18:28 | NUR ---
PATIENT IS AWAKE BUT REMAIN NON VERBAL AND RESPONSE TO STIMUL;I VITAL SIGNS ARE STABLE, FEEDING REACHED GOAL 65CC/HR PER ORDER. SPO2-98% VIA MECHANICAL VENTILATOR, FIO2-30%. OLVERA CATHETER IS DRAINING WELL,INTACT, PATIENT IS DRY AND CLEAN, REPOSITIONED EVERY TWO HOURS.
[2022-03-17 20:00] VITALS: BP 124/74
[2022-03-17] MEDS: SENNOSIDES 8.6 MG TABLET GT SCH (21:01)
[2022-03-18] VITALS: BP 122/65
[2022-03-18] MEDS: IPRATROPIUM NEB FS 0.5 MG/2.5 ML AMPUL.NEB NEB SCH ×4 (01:03→20:33)
[2022-03-18] MEDS: ALBUTEROL FS 2.5 MG/0.5 ML VIAL.NEB NEB SCH ×4 (01:03→20:32)
[2022-03-18 04:00] VITALS: BP 118/78
--- NOTE | 2022-03-18 06:46 | NUR ---
RN CLOSING NOTES PATIENT IN BED, OBTUNDED. OPEN BOTH EYES. ON TRACH TO VENT SETTING AND PT TOLERATED WELL. O2 SAT 98%. IV ACCESS ON LEFT HAND 20G AND RIGHT FOREARM#24G INTACT AND PATENT. NO S/S OF INFILTRATIONS.NO FACIAL GRIMACING NOTED. NO ACUTE DISTRESS. ALL DUE MEDS GIVEN ORDERED. GT FEEDING WELL TOLAERATED. RUNNING GLUCERNA AT 65CC/HR. OLVERA CATHETER IN PLACE. DRAINING BY GRAVITY. ALL SAFETY MEASURES IN PLACE. SIDE RAILS UP X3, PLACE CALL LIGHT IN REACH, BED IN LOWEST POSITION AND LOCKED. WILL ENDORSE TO MORNING SHIFT NURSE.
--- NOTE | 2022-03-18 07:10 | NUR ---
RN NOTE RECEIVED PATIENT IN BED RESTING.CONTRACTED,OBTUNDED,ON MECHANICAL VENT,SETTING PRESCRIBED,ON G-TUBED FEEDING GLUCERNA 1.2 65CC/HR,CHECKED THE PLACEMENT IN PLACE,NO RESIDUAL NOTED,OLVERA IN PLACE URINE DRAINING BY GRAVITY,IV SITE IS ON LEFT/RIGHT FOREARMS INTACT PATENT,SAFETY MEASURE IMPALEMENT,BED IN LOW POSITION AND LOCKED,HEAD OF THE BED ELEVATED CONTINUE TO MONITOR.
[2022-03-18] MEDS: GLUCERNA 1.2 1,000 ML BOTTLE GT PRN (07:16)
[2022-03-18 08:00] VITALS: BP 125/85
[2022-03-18] MEDS: DOCUSATE SODIUM LIQ 100 MG/10 ML UDC GT SCH (08:11)
[2022-03-18] MEDS: CHLORHEXIDINE GLUCONATE 15 ML UDC MM SCH ×2 (08:11→16:21)
[2022-03-18] MEDS: CARVEDILOL 12.5 MG TABLET GT SCH ×2 (08:12→16:58)
[2022-03-18] MEDS: ASCORBIC ACID 500 MG TABLET GT SCH (08:12)
[2022-03-18] MEDS: clonazePAM 0.5 MG TABLET GT SCH ×2 (08:12→21:20)
[2022-03-18] MEDS: CEFEPIME 1 GM in IV D5W 50 ML IV SCH (08:53)
[2022-03-18] MEDS: MIDODRINE HCL (5MG) 5 MG TABLET PO SCH ×3 (09:00→16:21)
[2022-03-18] MEDS: NYSTATIN CREAM 15 GM TUBE TP SCH ×2 (09:23→16:57)
[2022-03-18] MEDS: HEPARIN SODIUM, PORCINE 5000 UNITS/1 ML VIAL SQ SCH ×2 (09:24→21:20)
--- NOTE | 2022-03-18 09:42 | NUR ---
RECEIVED PATIENT IS AWAKE, OPEN EYES, NON VERBAL BUT RESPONSE TO STIMULI, NO SIGNS AND SYMPTOMS OF IN DISTRESS. HOLD BP MED PER MD PARAMETERS. CONTINUE TO MONITOR
[2022-03-18] MEDS: ACETAMINOPHEN 650 MG/20.3 ML UDC PO PRN (10:10)
--- NOTE | 2022-03-18 10:11 | NUR ---
TYLENOL 650MG GIVEN VIA GT DUE TO FEVER 101.4
--- NOTE | 2022-03-18 10:22 | NUR ---
COVID TEST DONE
[2022-03-18 12:00] VITALS: BP 125/76
[2022-03-18] MEDS ORDERED: VANCOMYCIN 1.5 GM in IV D5W 500 ML IV ONE (15:00)
[2022-03-18 16:00] VITALS: BP 133/82
[2022-03-18] MEDS ORDERED: CEFEPIME 2 GM in IV D5W 100 ML IV SCH (17:00)
--- NOTE | 2022-03-18 18:15 | NUR ---
PATIENT IS AWAKE, OPEN EYES, STILL NON VERBAL BUT RESPONSE TO STIMULI, FEEDING INFUSING WELL, NO RESIDUAL, VITAL SIGNS ARE STABLE, NO SIGNS AND SYMPTOMS OF IN DISTRESS. OLVERA CATHETER DRAINING WELL.
[2022-03-18] MEDS ORDERED: PERMETHRIN 5% CRM 60 GM TUBE TP ONE (19:00)
[2022-03-18] MEDS ORDERED: IVERMECTIN 3 MG TABLET PO ONE (19:00)
--- NOTE | 2022-03-18 19:15 | NUR ---
RN OPENING NOTES RECEIVED PT OBTUNDED. PATIENT TOLERATING VENTILATOR SETTINGS WELL. IV ACCESS ON RIGHT FOREARM & LEFT HAND 20 GAUGE.. OLVERA CATHETER DRAINING CLEAR YELLOW. SKIN ALTERATIONS DOCUMENTED IN PHYSICAL CHART AT THE NURSES STATION. ALL SAFETY MESURES IMPLEMENTED, SIDE RAILS UP, CALL LIGHT IN REACH, BED IN LOWEST LOCKED POSITION. WILL CONTINUE PLAN OF CARE AND ANTICIPATE NEEDS.
[2022-03-18 20:00] VITALS: BP 135/85
[2022-03-18] MEDS: MEROPENEM 500 MG in IV NS 0.9% 50 ML IV SCH (21:19)
[2022-03-18] MEDS: SENNOSIDES 8.6 MG TABLET GT SCH (21:20)
[2022-03-19] VITALS: BP 140/86
[2022-03-19] MEDS: ALBUTEROL FS 2.5 MG/0.5 ML VIAL.NEB NEB SCH ×4 (01:05→20:33)
[2022-03-19] MEDS: IPRATROPIUM NEB FS 0.5 MG/2.5 ML AMPUL.NEB NEB SCH ×4 (01:05→20:33)
[2022-03-19] MEDS: VANCOMYCIN 1 GM in IV D5W 250ml IV SCH ×2 (03:46→15:45)
[2022-03-19 04:00] VITALS: BP 127/50
[2022-03-19] MEDS: MEROPENEM 500 MG in IV NS 0.9% 50 ML IV SCH ×3 (05:10→21:22)
--- NOTE | 2022-03-19 06:41 | NUR ---
RN CLOSING NOTES PATIENT IN BED, OBTUNDED. OPEN BOTH EYES. ON TRACH TO VENT SETTING AND PT TOLERATED WELL. IV RHAND #22G &RIGHT FOREARM#24G INTACT AND PATENT. NO S/S OF INFILTRATIONS.NO FACIAL GRIMACING NOTED. NO ACUTE DISTRESS. ALL DUE MEDS GIVEN ORDERED. GT FEEDING WELL TOLAERATED. RUNNING GLUCERNA AT 65CC/HR. OLVERA CATHETER IN PLACE. DRAINING BY GRAVITY. ALL DUE MEDS GIVEN. ALL HOSPITAL SAFETY MEASURES ARE IN PLACE. WILL CONTINUE PLAN OF CARE AND ANTICIPATE NEEDS.WILL ENDORSE TO MORNING SHIFT FOR ADAM.
[2022-03-19 07:17] LABS: CALCIUM, SERUM 9.2 mg/dL (8.5-10.1); CREATININE 0.7 mg/dL (0.6-1.3)
--- NOTE | 2022-03-19 07:17 | NUR ---
RN OPENING NOTES RECEIVED PT OBTUNDED. PATIENT TOLERATING VENTILATOR SETTINGS.NO SINGS ON RESPIRATORY DISTRESS OR PAIN. IV ACCESS ON RIGHT FOREARM & LEFT HAND 20 GAUGE. OLVERA CATHETER DRAINING CLEAR YELLOW. . ALL SAFETY MEASURES IMPLEMENTED, SIDE RAILS UP, CALL LIGHT IN REACH, BED IN LOWEST LOCKED POSITION.
[2022-03-19 08:00] VITALS: BP 135/92
[2022-03-19] MEDS: ASCORBIC ACID 500 MG TABLET GT SCH (09:35)
[2022-03-19] MEDS: CHLORHEXIDINE GLUCONATE 15 ML UDC MM SCH ×2 (09:35→16:47)
[2022-03-19] MEDS: CARVEDILOL 12.5 MG TABLET GT SCH ×2 (09:35→16:48)
[2022-03-19] MEDS: MIDODRINE HCL (5MG) 5 MG TABLET PO SCH ×3 (09:35→16:57)
[2022-03-19] MEDS: clonazePAM 0.5 MG TABLET GT SCH ×2 (09:35→21:21)
[2022-03-19] MEDS: DOCUSATE SODIUM LIQ 100 MG/10 ML UDC GT SCH (09:35)
[2022-03-19] MEDS: HEPARIN SODIUM, PORCINE 5000 UNITS/1 ML VIAL SQ SCH ×2 (09:36→21:22)
[2022-03-19] MEDS: LORATADINE 10 MG TABLET PO SCH (09:37)
[2022-03-19] MEDS: NYSTATIN CREAM 15 GM TUBE TP SCH ×2 (09:41→16:57)
[2022-03-19 12:00] VITALS: BP 120/75
--- NOTE | 2022-03-19 12:00 | NUR ---
RN NOTE 0900 MIDODRINE HELD DUE TO BP 135/92. 1200 MIDODRINE ADMIN DUE TO BP 116/75
[2022-03-19 12:10] LABS: BASOPHILS % (AUTO) 0.3 % (0.0-2.0); EOSINOPHILS % (AUTO) 17.2 % (0.0-6.0); HEMATOCRIT 36 % (39-51); HEMOGLOBIN 11.8 g/dL (13.5-17.5); LYMPHOCYTES # (AUTO) 1.1 K/uL (0.8-4.8); MEAN CORPUSCULAR HGB CONC 33 g/dl (31.0-36.0); MEAN CORPUSCULAR VOLUME 99 fL (80-96); MONOCYTES # (AUTO) 0.7 K/uL (0.1-1.30); MONOCYTES % (AUTO) 6.9 % (2.0-12.0); NEUTROPHILS # (AUTO) 6.6 K/uL (1.8-8.9); NEUTROPHILS % (AUTO) 64.6 % (43.0-81.0); PLATELET COUNT (AUTO) 323 K/uL (150-450); RED BLOOD CELL COUNT(AUTO) 3.67 MIL/uL (4.5-6.0); WHITE BLOOD COUNT (AUTO) 10.3 K/uL (4.3-11.0)
[2022-03-19 16:00] VITALS: BP 122/79
[2022-03-19] MEDS: GLUCERNA 1.2 1,000 ML BOTTLE GT PRN (16:47)
--- NOTE | 2022-03-19 18:50 | NUR ---
RN CLOSING NOTES PATIENT IN BED, OBTUNDED. OPEN BOTH EYES. ON TRACH TO VENT SETTING AND PT TOLERATED WELL. IV RHAND #20G INTACT AND PATENT. NO S/S OF INFILTRATIONS.NO FACIAL GRIMACING NOTED. NO ACUTE DISTRESS. ALL DUE MEDS GIVEN ORDERED. GT FEEDING WELL TOLERATED. RUNNING GLUCERNA AT 65CC/HR. OLVERA CATHETER IN PLACE. DRAINING BY GRAVITY. ALL DUE MEDS GIVEN. ALL HOSPITAL SAFETY MEASURES ARE IN PLACE. WILL CONTINUE PLAN OF CARE AND ANTICIPATE NEEDS.WILL ENDORSE TO MULTICULTURAL MANAGER FOR ADAM.
--- NOTE | 2022-03-19 19:24 | NUR ---
[employer] OPENING NOTE RECEIVED PT AWAKE IN BED. OBTUNDED. PT WITH TRACH/VENT WITH SETTINGS ORDERED, TOLERATING WELL. NO SOB OR S/S OF RESPIRATORY DISTRESS. ON EXTERNAL PROPOSAL REP READING SR 75 BPM. WITH OLVERA CATHETER DRAINING URINE BY GRAVITY. WITH G TUBE RUNNING GLUCERNA @ 65 ML/HR. IV ACCESS R HAND 20G SL, INTACT AND PATENT. SAFETY PRECAUTIONS IN PLACE. BED IN LOWEST LOCKED POSITION, HOB ELEVATED, SIDE RAILS UP X2, AND CALL LIGHT AND TABLE WITHIN REACH. ALL NEEDS MET AT THIS TIME.
[2022-03-19 20:00] VITALS: BP 115/73
[2022-03-19] MEDS: SENNOSIDES 8.6 MG TABLET GT SCH (21:21)
[2022-03-20] VITALS: BP 125/82
[2022-03-20] MEDS: IPRATROPIUM NEB FS 0.5 MG/2.5 ML AMPUL.NEB NEB SCH ×4 (01:51→19:44)
[2022-03-20] MEDS: ALBUTEROL FS 2.5 MG/0.5 ML VIAL.NEB NEB SCH ×4 (01:51→19:44)
[2022-03-20] MEDS: VANCOMYCIN 1 GM in IV D5W 250ml IV SCH (03:29)
[2022-03-20 04:00] VITALS: BP 139/83
[2022-03-20] MEDS: MEROPENEM 500 MG in IV NS 0.9% 50 ML IV SCH ×3 (05:40→20:15)
--- NOTE | 2022-03-20 06:51 | NUR ---
REDEVELOPMENT SPECIALIST CLOSING NOTE PT AWAKE IN BED. OBTUNDED. PT WITH TRACH/VENT WITH SETTINGS ORDERED, TOLERATING WELL. NO SOB OR S/S OF RESPIRATORY DISTRESS. ON EXTERNAL REAL ESTATE SUBAGENT READING SR 88 BPM. WITH OLVERA CATHETER DRAINING URINE BY GRAVITY, DRAINED 750 CC THIS SHIFT. WITH G TUBE RUNNING GLUCERNA @ 65 ML/HR, TOLERATED WELL. IV ACCESS R HAND 20G SL, INTACT AND PATENT. SAFETY PRECAUTIONS IN PLACE AT ALL TIME. BED IN LOWEST LOCKED POSITION, HOB ELEVATED, SIDE RAILS UP X2, AND CALL LIGHT AND TABLE WITHIN REACH. ALL NEEDS MET AT THIS TIME AND WILL ENDORSE TO ONCOMING NURSE FOR ADAM.
[2022-03-20 07:02] LABS: BASOPHILS % (AUTO) 0.3 % (0.0-2.0); EOSINOPHILS % (AUTO) 19.2 % (0.0-6.0); HEMATOCRIT 37 % (39-51); HEMOGLOBIN 12.9 g/dL (13.5-17.5); LYMPHOCYTES # (AUTO) 1.1 K/uL (0.8-4.8); LYMPHOCYTES % (AUTO) 10.6 % (20.0-44.0); MEAN CORPUSCULAR HGB CONC 35 g/dl (31.0-36.0); MEAN CORPUSCULAR VOLUME 97 fL (80-96); MONOCYTES # (AUTO) 0.6 K/uL (0.1-1.30); MONOCYTES % (AUTO) 5.6 % (2.0-12.0); NEUTROPHILS # (AUTO) 6.8 K/uL (1.8-8.9); NEUTROPHILS % (AUTO) 64.3 % (43.0-81.0); PLATELET COUNT (AUTO) 364 K/uL (150-450); RED BLOOD CELL COUNT(AUTO) 3.85 MIL/uL (4.5-6.0); WHITE BLOOD COUNT (AUTO) 10.6 K/uL (4.3-11.0)
[2022-03-20 07:56] LABS: CALCIUM, SERUM 9.8 mg/dL (8.5-10.1); CREATININE 0.8 mg/dL (0.6-1.3); MAGNESIUM 1.9 mg/dL (1.8-2.4); PHOSPHORUS 3.6 mg/dL (2.5-4.9); POTASSIUM 3.9 mmol/L (3.5-5.1)
[2022-03-20 08:00] VITALS: BP 118/80
[2022-03-20] MEDS: NYSTATIN CREAM 15 GM TUBE TP SCH ×2 (09:00→16:53)
[2022-03-20] MEDS: HEPARIN SODIUM, PORCINE 5000 UNITS/1 ML VIAL SQ SCH ×2 (10:19→20:21)
[2022-03-20] MEDS: LORATADINE 10 MG TABLET PO SCH (10:20)
[2022-03-20] MEDS: CARVEDILOL 12.5 MG TABLET GT SCH ×2 (10:20→16:53)
[2022-03-20] MEDS: DOCUSATE SODIUM LIQ 100 MG/10 ML UDC GT SCH (10:20)
[2022-03-20] MEDS: ASCORBIC ACID 500 MG TABLET GT SCH (10:20)
[2022-03-20] MEDS: CHLORHEXIDINE GLUCONATE 15 ML UDC MM SCH ×2 (10:20→16:53)
[2022-03-20] MEDS: clonazePAM 0.5 MG TABLET GT SCH ×2 (10:20→20:21)
[2022-03-20] MEDS: MIDODRINE HCL (5MG) 5 MG TABLET PO SCH ×3 (10:20→16:53)
[2022-03-20 12:00] VITALS: BP 115/75
[2022-03-20] MEDS: VANCOMYCIN 0.75 GM in IV D5W 250 ML IV SCH (15:09)
[2022-03-20] MEDS: GLUCERNA 1.2 1,000 ML BOTTLE GT PRN (15:20)
[2022-03-20 16:00] VITALS: BP 144/94
--- NOTE | 2022-03-20 19:21 | NUR ---
RN CLOSING NOTES PATIENT IN BED, OBTUNDED. OPEN BOTH EYES. ON TRACH TO VENT SETTING AND PT TOLERATED WELL. IV RHAND #20G INTACT AND PATENT. NO S/S OF INFILTRATIONS.NO FACIAL GRIMACING NOTED. NO ACUTE DISTRESS. ALL DUE MEDS GIVEN ORDERED. GT FEEDING WELL TOLERATED. RUNNING GLUCERNA AT 65CC/HR. OLVERA CATHETER IN PLACE. DRAINING BY GRAVITY. ALL DUE MEDS GIVEN. ALL HOSPITAL SAFETY MEASURES ARE IN PLACE. WILL CONTINUE PLAN OF CARE AND ANTICIPATE NEEDS.WILL ENDORSE TO PHYSICAL THERAPIST CLINIC DIRECTOR FOR ADAM.
--- NOTE | 2022-03-20 19:30 | NUR ---
STRAND BUNCHER FINE WIRE OPENING NOTE RECEIVED PT IN BED. OBTUNDED. ON TRACH/VENT WITH SETTINGS ORDERED, TOLERATING WELL. NO SOB OR S/SX OF ACUTE RESPIRATORY DISTRESS NOTED AT THIS TIME. ON EXTERNAL MILL STENCILER READING SR 80 BPM. IV ACCESS ON RFA 22G SL, INTACT AND PATENT. WITH G TUBE RUNNING GLUCERNA @ 65 ML/HR, NO RESIDUAL NOTED. OLVERA CATHETER NOTED DRAINING YELLOW URINE BY GRAVITY. ALL SAFETY PRECAUTIONS IN PLACE. BED IN LOWEST LOCKED POSITION, HOB ELEVATED, SIDE RAILS UP X2, AND CALL LIGHT AND TABLE WITHIN REACH. WILL CONTINUE TO MONITOR.
[2022-03-20 20:00] VITALS: BP 137/94
[2022-03-20] MEDS: SENNOSIDES 8.6 MG TABLET GT SCH (21:03)
[2022-03-21] VITALS: BP 126/89
[2022-03-21] MEDS: ALBUTEROL FS 2.5 MG/0.5 ML VIAL.NEB NEB SCH ×4 (01:50→19:58)
[2022-03-21] MEDS: IPRATROPIUM NEB FS 0.5 MG/2.5 ML AMPUL.NEB NEB SCH ×4 (01:50→19:58)
[2022-03-21] MEDS: VANCOMYCIN 0.75 GM in IV D5W 250 ML IV SCH ×2 (02:00→15:14)
[2022-03-21 04:00] VITALS: BP 126/92
--- NOTE | 2022-03-21 04:47 | NUR ---
RN NOTE IV LINE GOT PULLED OUT. NEW IV ACCESS ON R HAND, #22g, SL.
[2022-03-21] MEDS: MEROPENEM 500 MG in IV NS 0.9% 50 ML IV SCH ×3 (04:54→21:52)
[2022-03-21 05:53] LABS: BASOPHILS % (AUTO) 0.2 % (0.0-2.0); EOSINOPHILS % (AUTO) 14.6 % (0.0-6.0); HEMATOCRIT 40 % (39-51); HEMOGLOBIN 13.7 g/dL (13.5-17.5); LYMPHOCYTES # (AUTO) 1.5 K/uL (0.8-4.8); LYMPHOCYTES % (AUTO) 10.8 % (20.0-44.0); MEAN CORPUSCULAR HGB CONC 34 g/dl (31.0-36.0); MEAN CORPUSCULAR VOLUME 97 fL (80-96); MONOCYTES # (AUTO) 0.8 K/uL (0.1-1.30); MONOCYTES % (AUTO) 5.8 % (2.0-12.0); NEUTROPHILS # (AUTO) 9.4 K/uL (1.8-8.9); NEUTROPHILS % (AUTO) 68.6 % (43.0-81.0); PLATELET COUNT (AUTO) 425 K/uL (150-450); RED BLOOD CELL COUNT(AUTO) 4.18 MIL/uL (4.5-6.0); WHITE BLOOD COUNT (AUTO) 13.7 K/uL (4.3-11.0)
--- NOTE | 2022-03-21 06:17 | NUR ---
RT Pt recvd on current vent settings of AC rr 16, vt 500, Fio2 30% peep +0, portex 9 trach is patent and secured. Suction done Q2/PRN, Neb tx given and jorje well. trach care done and stanton changed. No SOB or respiratory distress noted throughout shift. Vent is plugged into red outlet with alarms on and audible. Spare trach and ambu bag at bedside.
[2022-03-21 06:27] LABS: CALCIUM, SERUM 9.8 mg/dL (8.5-10.1); CREATININE 0.9 mg/dL (0.6-1.3); MAGNESIUM 2.1 mg/dL (1.8-2.4); PHOSPHORUS 3.8 mg/dL (2.5-4.9); POTASSIUM 3.9 mmol/L (3.5-5.1)
--- NOTE | 2022-03-21 06:33 | NUR ---
RN NOTE NO SIGNIFICANT CHANGE T/O THE NIGHT. ALL DUE MEDS GIVEN. PM CARE DONE. WILL ENDORSE TO AM SHIFT NURSE FOR ADAM.
--- NOTE | 2022-03-21 07:15 | NUR ---
RN OPENING NOTES RECEIVED REPORT FROM NIGHTSHIFT RN. PATIENT ON VENTILATOR TOLERATING SETTINGS WELL, NO SECRETIONS NOTED. PATIENT ON CHALK EXTRUDING MACHINE OPERATOR READING SINUS RHYTHM. OLVERA CATHETER DRAINING OUTPUT. WOUNDS DOCUMENTED IN PHYSICAL CHART AT NURSES STATION. PEG TUBE RUNNING GLUCERNA ORDERED, NO RESIDUAL. IV ACCESS MAINTAINED ON RIGHT HAND 22 GAUGE, NO FLUIDS RUNNING. SAFETY MEASURES IMPLEMENTED. WILL CONTINUE PLAN OF CARE AND ANTICIPATE NEEDS.
[2022-03-21 08:00] VITALS: BP 77/39
[2022-03-21] MEDS: CHLORHEXIDINE GLUCONATE 15 ML UDC MM SCH ×2 (08:17→17:34)
[2022-03-21] MEDS: clonazePAM 0.5 MG TABLET GT SCH ×2 (08:17→21:52)
[2022-03-21] MEDS: LORATADINE 10 MG TABLET PO SCH (08:18)
[2022-03-21] MEDS: DOCUSATE SODIUM LIQ 100 MG/10 ML UDC GT SCH (08:18)
[2022-03-21] MEDS: HEPARIN SODIUM, PORCINE 5000 UNITS/1 ML VIAL SQ SCH ×2 (08:18→21:54)
[2022-03-21] MEDS: ASCORBIC ACID 500 MG TABLET GT SCH (08:18)
[2022-03-21] MEDS: CARVEDILOL 12.5 MG TABLET GT SCH ×2 (08:41→17:00)
[2022-03-21] MEDS: MIDODRINE HCL (5MG) 5 MG TABLET PO SCH ×3 (08:42→17:34)
[2022-03-21] MEDS: GLUCERNA 1.2 1,000 ML BOTTLE GT PRN (09:44)
[2022-03-21 12:00] VITALS: BP 138/91
[2022-03-21] MEDS: NYSTATIN CREAM 15 GM TUBE TP SCH ×2 (12:19→17:32)
[2022-03-21 16:00] VITALS: BP 91/56
--- NOTE | 2022-03-21 18:59 | NUR ---
PATIENT REMAINS IN ROOM. TOLERATING VENTILATOR SETTINGS. NEW IV ACCESS ON RIGHT UPPER ARM MIDLINE, PATENT AND FLUSHING WITH NO RESISTANCE. WILL ENDORSE TO NIGHTSHIFT RN FOR CONTINUATION OF CARE.
--- NOTE | 2022-03-21 19:00 | NUR ---
RECEIVED REPORT FROM POLINA RODRIGUEZ.
[2022-03-21 20:00] VITALS: BP 140/90
[2022-03-21] MEDS: SENNOSIDES 8.6 MG TABLET GT SCH (21:53)
[2022-03-22] VITALS (7 sets, daily range): BP systolic 128–146; BP diastolic 87–96
[2022-03-22] MEDS: ALBUTEROL FS 2.5 MG/0.5 ML VIAL.NEB NEB SCH ×4 (02:13→20:03)
[2022-03-22] MEDS: IPRATROPIUM NEB FS 0.5 MG/2.5 ML AMPUL.NEB NEB SCH ×4 (02:13→20:03)
[2022-03-22] MEDS: VANCOMYCIN 0.75 GM in IV D5W 250 ML IV SCH (03:06)
[2022-03-22] MEDS: MEROPENEM 500 MG in IV NS 0.9% 50 ML IV SCH ×3 (05:04→21:51)
[2022-03-22 08:06] LABS: CALCIUM, SERUM 9.1 mg/dL (8.5-10.1); CREATININE 0.9 mg/dL (0.6-1.3); MAGNESIUM 2.1 mg/dL (1.8-2.4); POTASSIUM 3.7 mmol/L (3.5-5.1)
[2022-03-22 08:10] LABS: BASOPHILS # (AUTO) 0.1 K/uL (0.0-0.2); BASOPHILS % (AUTO) 0.5 % (0.0-2.0); EOSINOPHILS % (AUTO) 13.9 % (0.0-6.0); HEMATOCRIT 39 % (39-51); LYMPHOCYTES # (AUTO) 1.5 K/uL (0.8-4.8); MEAN CORPUSCULAR HGB CONC 33 g/dl (31.0-36.0); MEAN CORPUSCULAR VOLUME 97 fL (80-96); MONOCYTES # (AUTO) 0.7 K/uL (0.1-1.30); MONOCYTES % (AUTO) 5.8 % (2.0-12.0); NEUTROPHILS # (AUTO) 8.7 K/uL (1.8-8.9); NEUTROPHILS % (AUTO) 67.8 % (43.0-81.0); PLATELET COUNT (AUTO) 442 K/uL (150-450); RED BLOOD CELL COUNT(AUTO) 4.06 MIL/uL (4.5-6.0); WHITE BLOOD COUNT (AUTO) 12.8 K/uL (4.3-11.0)
[2022-03-22] MEDS: MIDODRINE HCL (5MG) 5 MG TABLET PO SCH ×3 (09:00→17:00)
[2022-03-22] MEDS: LORATADINE 10 MG TABLET PO SCH (10:40)
[2022-03-22] MEDS: DOCUSATE SODIUM LIQ 100 MG/10 ML UDC GT SCH (10:40)
[2022-03-22] MEDS: CHLORHEXIDINE GLUCONATE 15 ML UDC MM SCH ×2 (10:41→17:56)
[2022-03-22] MEDS: ASCORBIC ACID 500 MG TABLET GT SCH (10:41)
[2022-03-22] MEDS: CARVEDILOL 12.5 MG TABLET GT SCH ×2 (10:41→17:56)
[2022-03-22] MEDS: clonazePAM 0.5 MG TABLET GT SCH ×2 (10:42→21:50)
[2022-03-22] MEDS: HEPARIN SODIUM, PORCINE 5000 UNITS/1 ML VIAL SQ SCH (10:46)
[2022-03-22] MEDS: NYSTATIN CREAM 15 GM TUBE TP SCH ×2 (10:47→17:58)
[2022-03-22] MEDS: GLUCERNA 1.2 1,000 ML BOTTLE GT PRN (10:48)
--- NOTE | 2022-03-22 19:53 | NUR ---
RN OPENING NOTES RECEIVED PATIENT IN BED, OBTUNDED. OXYGEN SATURATION IN 100%. PATIENT TOLERATING VENTILATOR SETTINGS WELL. IV ACCESS ON KIAH RUNNING FLUIDS ORDERED, WITH GTUBE IN PLACE RUNNING GLUCERNA 1.2 @ 65 ML/HR, OLVERA CATHETER DRAINING OUTPUT. SAFETY MEASURES IMPLEMENTED, SIDE RAILS UP, CALL LIGHT IN REACH, BED IN LOWEST LOCKED POSITION. WILL CONTINUE TO MONITOR PATIENT THROUGHOUT THE SHIFT.
[2022-03-22] MEDS: SENNOSIDES 8.6 MG TABLET GT SCH (21:50)
[2022-03-23] VITALS: BP 134/94
[2022-03-23] MEDS: IPRATROPIUM NEB FS 0.5 MG/2.5 ML AMPUL.NEB NEB SCH ×5 (01:30→20:00)
[2022-03-23] MEDS: ALBUTEROL FS 2.5 MG/0.5 ML VIAL.NEB NEB SCH ×5 (01:30→20:00)
[2022-03-23] MEDS: GLUCERNA 1.2 1,000 ML BOTTLE GT PRN ×2 (01:33→21:14)
[2022-03-23] MEDS: VANCOMYCIN 1.25 GM in IV D5W 250 ML IV SCH (02:35)
[2022-03-23 04:00] VITALS: BP 138/91
[2022-03-23] MEDS: MEROPENEM 500 MG in IV NS 0.9% 50 ML IV SCH ×3 (04:19→21:14)
[2022-03-23 06:07] LABS: BASOPHILS % (AUTO) 0.3 % (0.0-2.0); HEMATOCRIT 40 % (39-51); HEMOGLOBIN 13.5 g/dL (13.5-17.5); LYMPHOCYTES # (AUTO) 1.4 K/uL (0.8-4.8); LYMPHOCYTES % (AUTO) 11.5 % (20.0-44.0); MEAN CORPUSCULAR HGB CONC 34 g/dl (31.0-36.0); MEAN CORPUSCULAR VOLUME 97 fL (80-96); MONOCYTES # (AUTO) 0.7 K/uL (0.1-1.30); MONOCYTES % (AUTO) 5.5 % (2.0-12.0); NEUTROPHILS # (AUTO) 8.1 K/uL (1.8-8.9); NEUTROPHILS % (AUTO) 67.7 % (43.0-81.0); PLATELET COUNT (AUTO) 399 K/uL (150-450); RED BLOOD CELL COUNT(AUTO) 4.14 MIL/uL (4.5-6.0); WHITE BLOOD COUNT (AUTO) 11.9 K/uL (4.3-11.0)
[2022-03-23 06:28] LABS: CALCIUM, SERUM 9.4 mg/dL (8.5-10.1); CREATININE 0.9 mg/dL (0.6-1.3); PHOSPHORUS 4.3 mg/dL (2.5-4.9); POTASSIUM 3.8 mmol/L (3.5-5.1)
--- NOTE | 2022-03-23 06:49 | NUR ---
CAKE ICER CLOSING NOTES PATIENT REMAINS IN BED, OBTUNDED. OXYGEN SATURATION IN 100%. PATIENT TOLERATING VENTILATOR SETTINGS WELL. IV ACCESS ON KIAH ML RUNNING NS AT TKO, PT ON TELEMONITORING CURRENTLY READING SR AT 90, WITH GTUBE IN PLACE RUNNING GLUCERNA 1.2 @ 65 ML/HR, OLVERA CATHETER DRAINING OUTPUT. ALL DUE MEDS GIVEN, KEPT DRY AND CLEAN, SAFETY MEASURES IMPLEMENTED, SIDE RAILS UP, CALL LIGHT IN REACH, BED IN LOWEST LOCKED POSITION. WILL ENDORSE TO AM SHIFT NURSE FOR CONTINUITY OF CARE.
--- NOTE | 2022-03-23 07:50 | NUR ---
RN NOTE PT RECEIVED IN BED. OBTUNDED. TRACH IN PLACE WITH VENT SETTINGS TOLERATED WELL. NOT IN RESPI DISTRESS. OLVERA CATH DRAINING WELL. PT ON GT FEEDING GLUCERNA 1.2 @65/HR. SAFETY MEASURES FOLLOWED. WILL CONTINUE TO MONITOR.
[2022-03-23 08:00] VITALS: BP 138/87
[2022-03-23] MEDS: MIDODRINE HCL (5MG) 5 MG TABLET PO SCH ×3 (09:00→17:00)
[2022-03-23] MEDS: NYSTATIN CREAM 15 GM TUBE TP SCH ×2 (09:00→17:29)
[2022-03-23] MEDS: CHLORHEXIDINE GLUCONATE 15 ML UDC MM SCH ×2 (10:20→17:28)
[2022-03-23] MEDS: CARVEDILOL 12.5 MG TABLET GT SCH ×2 (10:20→17:28)
[2022-03-23] MEDS: clonazePAM 0.5 MG TABLET GT SCH ×2 (10:20→21:17)
[2022-03-23] MEDS: DOCUSATE SODIUM LIQ 100 MG/10 ML UDC GT SCH (10:20)
[2022-03-23] MEDS: LORATADINE 10 MG TABLET PO SCH (10:20)
[2022-03-23] MEDS: ASCORBIC ACID 500 MG TABLET GT SCH (10:20)
[2022-03-23 12:00] VITALS: BP 130/77
[2022-03-23] MEDS ORDERED: VANC1PLA9 IV (13:05)
[2022-03-23] MEDS ORDERED: MERO500P IV (13:05)
[2022-03-23 16:00] VITALS: BP 130/88
--- NOTE | 2022-03-23 16:31 | NUR ---
RN NOTE COVID 19 ANTIGEN SPECIMEN COLLECTED AND SENT TO LAB.
--- NOTE | 2022-03-23 19:41 | NUR ---
RN NOTE PT IN BED, TRACH IN PLACE WITH VENT SETTINGS TOLERATED WELL. AWAITING FOR TRANSPORTATION FOR D/C TO SNF. WILL ENDORSE TO NEXT SHIFT. V/S STABLE.
--- NOTE | 2022-03-23 19:45 | NUR ---
ENGINEER INTERNSHIP OPENING NOTES RECEIVED PATIENT IN BED, OBTUNDED. OXYGEN SATURATION IN 100%. PATIENT TOLERATING VENTILATOR SETTINGS WELL. IV ACCESS ON KIAH RUNNING FLUIDS ORDERED, WITH GTUBE IN PLACE RUNNING GLUCERNA 1.2 @ 65 ML/HR, OLVERA CATHETER DRAINING WITH OUTPUT. SAFETY MEASURES IMPLEMENTED, SIDE RAILS UP, CALL LIGHT IN REACH, BED IN LOWEST LOCKED POSITION. WILL CONTINUE TO MONITOR PATIENT THROUGHOUT THE SHIFT.
[2022-03-23 20:00] VITALS: BP 136/89
[2022-03-23] MEDS: SENNOSIDES 8.6 MG TABLET GT SCH (21:17)
[2022-03-24] VITALS: BP 136/89
[2022-03-24] MEDS: IPRATROPIUM NEB FS 0.5 MG/2.5 ML AMPUL.NEB NEB SCH ×4 (01:58→20:11)
[2022-03-24] MEDS: ALBUTEROL FS 2.5 MG/0.5 ML VIAL.NEB NEB SCH ×4 (01:58→20:11)
[2022-03-24] MEDS: VANCOMYCIN 1.25 GM in IV D5W 250 ML IV SCH (02:13)
[2022-03-24 04:00] VITALS: BP 144/92
[2022-03-24] MEDS: MEROPENEM 500 MG in IV NS 0.9% 50 ML IV SCH ×3 (05:03→21:00)
[2022-03-24 06:44] LABS: CALCIUM, SERUM 9.4 mg/dL (8.5-10.1); CREATININE 0.8 mg/dL (0.6-1.3)
--- NOTE | 2022-03-24 06:57 | NUR ---
RUGBY UNION FOOTBALLER CLOSING NOTES PATIENT REMAINS IN BED, OBTUNDED. OXYGEN SATURATION IN 100%. PATIENT TOLERATING VENTILATOR SETTINGS WELL. IV ACCESS ON KIAH ML RUNNING NS AT TKO, PT ON TELEMONITORING CURRENTLY READING SR AT 87, WITH GTUBE IN PLACE RUNNING GLUCERNA 1.2 @ 65 ML/HR, OLVERA CATHETER DRAINING OUTPUT. ALL DUE MEDS GIVEN, KEPT DRY AND CLEAN, SAFETY MEASURES IMPLEMENTED, SIDE RAILS UP, CALL LIGHT IN REACH, BED IN LOWEST LOCKED POSITION. WILL ENDORSE TO AM SHIFT NURSE FOR CONTINUITY OF CARE.
[2022-03-24 08:00] VITALS: BP 149/94
[2022-03-24] MEDS: DOCUSATE SODIUM LIQ 100 MG/10 ML UDC GT SCH (09:39)
[2022-03-24] MEDS: clonazePAM 0.5 MG TABLET GT SCH ×2 (09:39→21:00)
[2022-03-24] MEDS: MIDODRINE HCL (5MG) 5 MG TABLET PO SCH ×3 (09:39→17:25)
[2022-03-24] MEDS: CARVEDILOL 12.5 MG TABLET GT SCH ×2 (09:39→17:25)
[2022-03-24] MEDS: ASCORBIC ACID 500 MG TABLET GT SCH (09:39)
[2022-03-24] MEDS: CHLORHEXIDINE GLUCONATE 15 ML UDC MM SCH ×2 (09:39→17:25)
[2022-03-24] MEDS: NYSTATIN CREAM 15 GM TUBE TP SCH ×2 (09:40→16:28)
[2022-03-24] MEDS: LORATADINE 10 MG TABLET PO SCH (09:40)
[2022-03-24 12:00] VITALS: BP 136/92
[2022-03-24] MEDS: ACETAMINOPHEN 650 MG/20.3 ML UDC PO PRN (12:07)
[2022-03-24] MEDS ORDERED: PERMETHRIN 5% CRM 60 GM TUBE TP ONE (15:00)
[2022-03-24] MEDS ORDERED: IVERMECTIN 3 MG TABLET PO ONE (15:00)
[2022-03-24 16:00] VITALS: BP 138/98
--- NOTE | 2022-03-24 19:26 | NUR ---
REFINERY OPERATOR CLOSING NOTES PATIENT REMAINS IN BED, OBTUNDED. OXYGEN SATURATION IN 100%. PATIENT TOLERATING VENTILATOR SETTINGS WELL. IV ACCESS ON KIAH ML RUNNING NS AT TKO, PT ON TELEMONITORING CURRENTLY READING SR AT 81, WITH GTUBE IN PLACE RUNNING GLUCERNA 1.2 @ 65 ML/HR, OLVERA CATHETER DRAINING OUTPUT. ALL DUE MEDS GIVEN, KEPT DRY AND CLEAN, SAFETY MEASURES IMPLEMENTED, SIDE RAILS UP, CALL LIGHT IN REACH, BED IN LOWEST LOCKED POSITION. WILL ENDORSE TO PM SHIFT NURSE FOR CONTINUITY OF CARE.
--- NOTE | 2022-03-24 19:38 | NUR ---
CREAM SEPARATOR OPERATOR OPENING NOTES RECEIVED PATIENT IN BED, OBTUNDED. OXYGEN SATURATION IN 100%. PATIENT TOLERATING VENTILATOR SETTINGS WELL. IV ACCESS ON KIAH RUNNING FLUIDS ORDERED, WITH GTUBE IN PLACE RUNNING GLUCERNA 1.2 @ 65 ML/HR, OLVERA CATHETER DRAINING WITH OUTPUT. SAFETY MEASURES IMPLEMENTED, SIDE RAILS UP, CALL LIGHT IN REACH, BED IN LOWEST LOCKED POSITION. PT AWAITING FOR SNF PLACEMENT, WILL CONTINUE TO MONITOR PATIENT THROUGHOUT THE SHIFT.
[2022-03-24 20:00] VITALS: BP 172/94
[2022-03-24] MEDS: SENNOSIDES 8.6 MG TABLET GT SCH (21:00)
[2022-03-24] MEDS: GLUCERNA 1.2 1,000 ML BOTTLE GT PRN (21:04)
[2022-03-24] MEDS ORDERED: hydrALAZINE HCL IV 20 MG VIAL IV PRN (21:30)
--- NOTE | 2022-03-24 22:20 | NUR ---
RN NOTE NOTED BP HIGH AT 172/94. PT HAD NO PRN MEDS FOR HTN ON eMAR, INFORMED TRAUMA THERAPIST MD, ORDERED HYDRALAZINE 10 MG IV PRN, ORDER TAKEN AND CARRIED OUT. WILL CONT TO MONITOR PT.
[2022-03-25] VITALS: BP 160/111
[2022-03-25] MEDS: IPRATROPIUM NEB FS 0.5 MG/2.5 ML AMPUL.NEB NEB SCH ×4 (01:17→20:03)
[2022-03-25] MEDS: ALBUTEROL FS 2.5 MG/0.5 ML VIAL.NEB NEB SCH ×4 (01:17→20:03)
[2022-03-25] MEDS: VANCOMYCIN 1.25 GM in IV D5W 250 ML IV SCH (03:51)
[2022-03-25 04:00] VITALS: BP 156/95
--- NOTE | 2022-03-25 04:00 | NUR ---
RN NOTE NOTED PT WITH LOW GRADE FEVER AT 100.O, COOLING PACKS PROVIDED, COMFORT MEASURES DONE. WILL CONT TO MONITOR.
[2022-03-25] MEDS: MEROPENEM 500 MG in IV NS 0.9% 50 ML IV SCH (04:40)
--- NOTE | 2022-03-25 05:10 | NUR ---
RN NOTE TEMPERATURE DOWN AT 99.4
--- NOTE | 2022-03-25 06:40 | NUR ---
TRANSMISSION MECHANIC CLOSING NOTES PATIENT REMAINS IN BED, OBTUNDED. OXYGEN SATURATION IN 100%. PATIENT TOLERATING VENTILATOR SETTINGS WELL. IV ACCESS ON KIAH ML RUNNING NS AT TKO, PT ON TELEMONITORING CURRENTLY READING SR AT 97, WITH GTUBE IN PLACE RUNNING GLUCERNA 1.2 @ 65 ML/HR, OLVERA CATHETER DRAINING OUTPUT. ALL DUE MEDS GIVEN, KEPT DRY AND CLEAN, SAFETY MEASURES IMPLEMENTED, SIDE RAILS UP, CALL LIGHT IN REACH, BED IN LOWEST LOCKED POSITION. WILL ENDORSE TO AM SHIFT NURSE FOR CONTINUITY OF CARE.
--- NOTE | 2022-03-25 07:05 | NUR ---
BOX PULLER OPENING NOTE: RECEIVED PT. IN BED OBTUNDED, NO S/S OF PAIN/DISCOMFORT NOTED. ON TRACH, PORTEX #9, AC - 16; VT - 500; FIO2- 30%; PEEP - 5. NO S/S OF RESPIRATORY DISTRESS. QA AUTOMATION ENGINEER READS NSR AT THIS TIME. ON OLVERA CATH DRAINING CLOUDY YELLOW URINE DRAINING BELOW BLADDER. MULTIPLE SKIN ISSUES NOTED, WILL DO WOUND TREATMENT ORDERED. IV ACCESS ON KIAH MIDLINE, ON TKO. IV DRESSING C/D/I, WITH NO S/S OF INFILTRATION. G-TUBE FEEDING WITH GLUCERNA RUNNING AT 65 ML/HR X 24HRS. NO GASTRIC RESIDUAL NOTED. SAFETY MEASURES IN PLACE: BED IN LOWEST AND LOCKED POSITION, SIDE RAILS UPX2, HOB ELEVATED AT 30 DEGREES, BED ALARM ON, CALL LIGHT WITHIN REACH. WILL TURN AND REPOSITION IN BED AT LEAST Q2H. WILL CONTINUE TO MONITOR PT. FOR ANY CHANGES.
[2022-03-25 07:50] LABS: CALCIUM, SERUM 9.5 mg/dL (8.5-10.1); CREATININE 0.8 mg/dL (0.6-1.3); POTASSIUM 4.1 mmol/L (3.5-5.1)
[2022-03-25 08:00] VITALS: BP 146/94
[2022-03-25] MEDS: MIDODRINE HCL (5MG) 5 MG TABLET PO SCH ×3 (09:00→17:31)
[2022-03-25] MEDS: NYSTATIN CREAM 15 GM TUBE TP SCH ×2 (09:00→17:31)
[2022-03-25] MEDS: CHLORHEXIDINE GLUCONATE 15 ML UDC MM SCH ×2 (10:26→17:30)
[2022-03-25] MEDS: DOCUSATE SODIUM LIQ 100 MG/10 ML UDC GT SCH (10:26)
[2022-03-25] MEDS: LORATADINE 10 MG TABLET PO SCH (10:26)
[2022-03-25] MEDS: clonazePAM 0.5 MG TABLET GT SCH ×2 (10:27→21:31)
[2022-03-25] MEDS: CARVEDILOL 12.5 MG TABLET GT SCH ×2 (10:27→17:00)
[2022-03-25] MEDS: ASCORBIC ACID 500 MG TABLET GT SCH (10:27)
[2022-03-25 12:00] VITALS: BP 128/87
[2022-03-25 16:00] VITALS: BP 91/56
[2022-03-25] MEDS: GLUCERNA 1.2 1,000 ML BOTTLE GT PRN (17:30)
--- NOTE | 2022-03-25 19:20 | NUR ---
COMBER TENDER CLOSING NOTE: PT. REMAINS IN BED OBTUNDED, NO S/S OF PAIN/DISCOMFORT NOTED AT THIS TIME. ON TRACH, PORTEX #9, AC - 16; VT - 500; FIO2- 30%; PEEP - 5. NO S/S OF RESPIRATORY DISTRESS. COMB WINDER READS NSR THIS SHIFT. OLVERA CATH DRAINED 450 ML CLOUDY YELLOW URINE. WOUND TREATMENT DONE ORDERED. IV ACCESS ON KIAH MIDLINE, ON TKO. IV DRESSING C/D/I, WITH NO S/S OF INFILTRATION. G-TUBE FEEDING WITH GLUCERNA RUNNING AT 65 ML/HR X 24HRS. NO GASTRIC RESIDUAL NOTED THIS SHIFT. SAFETY MEASURES MAINTAINED: BED IN LOWEST AND LOCKED POSITION, SIDE RAILS UPX2, HOB ELEVATED AT 30 DEGREES, BED ALARM ON, CALL LIGHT WITHIN REACH. TURNED AND REPOSITIONED IN BED AT LEAST Q2H. ENDORSED CONTINUITY OF CARE TO CARTON PACKAGING MACHINE OPERATOR RN.
--- NOTE | 2022-03-25 19:30 | NUR ---
PT.IN BED OBTUNDED, NO S/S OF PAIN/DISCOMFORT NOTED. ON TRACH SETTING PRESCRIBED. NO S/S OF RESPIRATORY DISTRESS. GROUP WORKER READS NSR AT THIS TIME. ON OLVERA CATH DRAINING CLOUDY YELLOW URINE DRAINING BELOW BLADDER. MULTIPLE SKIN ISSUES NOTED, WILL DO WOUND TREATMENT ORDERED. IV ACCESS ON KIAH MIDLINE, ON TKO. G-TUBE FEEDING WITH GLUCERNA 1.2 INFUSING AT 65 ML/HR X 24HRS. NO GASTRIC RESIDUAL NOTED. SAFETY MEASURES IN PLACE. WILL CONTINUE PLAN OF CARE.
[2022-03-25 20:00] VITALS: BP 146/97
[2022-03-25] MEDS: SENNOSIDES 8.6 MG TABLET GT SCH (21:31)
[2022-03-26] VITALS: BP 144/80
[2022-03-26] MEDS: ACETAMINOPHEN 650 MG/20.3 ML UDC PO PRN ×2 (00:20→16:57)
--- NOTE | 2022-03-26 00:20 | NUR ---
TEMP 100.5, ACETAMINOPHEN 650MG GIVEN.
[2022-03-26] MEDS: IPRATROPIUM NEB FS 0.5 MG/2.5 ML AMPUL.NEB NEB SCH ×4 (01:51→19:34)
[2022-03-26] MEDS: ALBUTEROL FS 2.5 MG/0.5 ML VIAL.NEB NEB SCH ×4 (01:51→19:34)
[2022-03-26 04:00] VITALS: BP 145/85
--- NOTE | 2022-03-26 06:53 | NUR ---
PT IN BED OBTUNDED, NO S/S OF PAIN/DISCOMFORT NOTED. ON TRACH SETTING PRESCRIBED. NO S/S OF RESPIRATORY DISTRESS. NURSING HOME PHYSICIAN READS NSR AT THIS TIME. ON OLVERA CATH DRAINING CLOUDY YELLOW URINE DRAINING BELOW BLADDER. MULTIPLE SKIN ISSUES NOTED, WILL DO WOUND TREATMENT ORDERED. IV ACCESS ON KIAH MIDLINE, ON TKO. G-TUBE FEEDING WITH GLUCERNA 1.2 INFUSING AT 65 ML/HR X 24HRS. NO GASTRIC RESIDUAL NOTED. DUE MEDS AND PRN MED GIVEN ORDERED AND NEEDED. SAFETY MEASURESMAINTAINED. WILL ENDORSE TO NEXT NURSE ON DUTY FOR CONTINUITY OF CARE.
--- NOTE | 2022-03-26 07:10 | NUR ---
RN NOTE RECEIVED PATIENT IN BED RESTING,OBTUNDED,CONTRACTED,ON VENT SETTING PRESCRIBED,ON G-TUBED FEEDING CHECKED PLACEMENT IN PLACE,NO RESIDUAL NOTED,ON GLUCERNA 1.2 65CC/HR,OLVERA CATH IN PLACE URINE DRAINING YELLOW/CLEAR BY GRAVITY,LEFT UPPER ARM MIDLINE INTACT PATENT,SAFETY MEASURE IMPLEMENT BED IN LOW POSITION AND LOCKED,HEAD OF THE BED ELEVATED CONTINUE TO MONITOR.
[2022-03-26 08:00] VITALS: BP 145/92
[2022-03-26] MEDS: DOCUSATE SODIUM LIQ 100 MG/10 ML UDC GT SCH (09:00)
[2022-03-26] MEDS: CARVEDILOL 12.5 MG TABLET GT SCH ×3 (09:00→16:56)
[2022-03-26] MEDS: CHLORHEXIDINE GLUCONATE 15 ML UDC MM SCH ×2 (09:10→16:57)
[2022-03-26] MEDS: ASCORBIC ACID 500 MG TABLET GT SCH (09:10)
[2022-03-26] MEDS: clonazePAM 0.5 MG TABLET GT SCH ×2 (09:10→21:39)
[2022-03-26] MEDS: LORATADINE 10 MG TABLET PO SCH (09:11)
[2022-03-26] MEDS: MIDODRINE HCL (5MG) 5 MG TABLET PO SCH ×3 (09:11→16:54)
[2022-03-26] MEDS: NYSTATIN CREAM 15 GM TUBE TP SCH ×2 (09:18→16:58)
[2022-03-26 12:00] VITALS: BP 150/93
[2022-03-26 16:00] VITALS: BP 132/90
--- NOTE | 2022-03-26 18:38 | NUR ---
RN NOTE PATIENT REMAINS ON OBTUNDED,CONTRACTED, ON MECHANICAL VENT SETTING PRESCRIBED, NO SOB NOT ACUTE DISTRESS NOTED,ON G-TUBE FEEDING,OLVERA IN PLACE,KEPT CLEAN AND DRY ALL THE TIME,TURNED AND REPOSITIONED EVERY 2 HOURS,KEPT HEAD OF THE BED ELEVATED,ALL NEEDS MET ENDORSE NEXT COMING SHIFT FOR CONTINUATION OF CARE.
--- NOTE | 2022-03-26 19:30 | NUR ---
RN OPENING NOTE PT OBTUNDED AND NONVERBAL. RASHES NOTED ON BODY. SKIN WARM AND DRY. RESPIRATIONS EVEN AND UNLABORED ON VENT WITH O2 SAT OF 100%. TUBE FEEDING OF GLUCERNA IN PROGRESS AT 65 ML/HR X24 HRS. KIAH MIDLINE TKO. OLVERA INTACT AND DRAINING. NO ACUTE SIGNS OF DISTRESS AT THIS TIME. SAFETY PRECAUTIONS IN PLACE. BED LOCKED AND AT LOWEST LEVEL. X2 RAILS UP AND BED ALARM ON. CALL LIGHT WITHIN REACH.
--- NOTE | 2022-03-26 19:50 | NUR ---
RECEIVED PT TRACH PORTEX 9 ON VENT. NO RESP DISTRESS NOTED TOLERATING VENT SETTINGS. SX'D MOD AMT OF THICK WHITE SECRETIONS. VENT ALARMS SET AND AUDIBLE. TRACH SECURED, CUFF CHECKED. CONTINUE TO MONITOR. Addendum: 03/26/22 at 1951 by KIMBERLY HINDS RT Amended: Links added.
[2022-03-26 20:00] VITALS: BP 155/90
[2022-03-26] MEDS: SENNOSIDES 8.6 MG TABLET GT SCH (21:40)
[2022-03-27] VITALS: BP_SYST 108; BP_SYST 146; BP_DIAS 70; BP_DIAS 95
[2022-03-27] MEDS: IPRATROPIUM NEB FS 0.5 MG/2.5 ML AMPUL.NEB NEB SCH ×4 (01:21→20:38)
[2022-03-27] MEDS: ALBUTEROL FS 2.5 MG/0.5 ML VIAL.NEB NEB SCH ×4 (01:21→20:38)
[2022-03-27] MEDS: GLUCERNA 1.2 1,000 ML BOTTLE GT PRN (02:33)
[2022-03-27 04:00] VITALS: BP 145/92
--- NOTE | 2022-03-27 06:54 | NUR ---
RN CLOSING NOTE PT OBTUNDED AND NONVERBAL. RASHES NOTED ON BODY. PICTURES OF SKIN AND WOUNDS PLACED IN CHART. SKIN WARM AND DRY. RESPIRATIONS EVEN AND UNLABORED ON VENT WITH O2 SAT OF 100%. TUBE FEEDING OF GLUCERNA IN PROGRESS AT 65 ML/HR X24 HRS. KIAH MIDLINE TKO. OLVERA INTACT AND DRAINING. NO ACUTE SIGNS OF DISTRESS AT THIS TIME. SAFETY PRECAUTIONS IN PLACE. BED LOCKED AND AT LOWEST LEVEL. X2 RAILS UP AND BED ALARM ON. CALL LIGHT WITHIN REACH.
[2022-03-27 08:00] VITALS: BP 137/89
[2022-03-27] MEDS: CHLORHEXIDINE GLUCONATE 15 ML UDC MM SCH ×2 (08:27→17:37)
[2022-03-27] MEDS: clonazePAM 0.5 MG TABLET GT SCH ×2 (08:27→21:44)
[2022-03-27] MEDS: DOCUSATE SODIUM LIQ 100 MG/10 ML UDC GT SCH (08:27)
[2022-03-27] MEDS: LORATADINE 10 MG TABLET PO SCH (08:27)
[2022-03-27] MEDS: ASCORBIC ACID 500 MG TABLET GT SCH (08:27)
[2022-03-27] MEDS: MIDODRINE HCL (5MG) 5 MG TABLET PO SCH ×3 (08:28→17:37)
[2022-03-27] MEDS: CARVEDILOL 12.5 MG TABLET GT SCH ×2 (08:28→17:38)
[2022-03-27] MEDS: NYSTATIN CREAM 15 GM TUBE TP SCH ×2 (08:30→17:38)
[2022-03-27] MEDS: ACETAMINOPHEN 650 MG/20.3 ML UDC PO PRN ×2 (09:44→13:41)
[2022-03-27 12:00] VITALS: BP 130/85
[2022-03-27 16:00] VITALS: BP 123/90
--- NOTE | 2022-03-27 19:09 | NUR ---
RN CLOSING NOTE PT OBTUNDED A/O X0. RASHES NOTED ON BODY. SKIN WARM AND DRY. RESPIRATIONS EVEN AND UNLABORED ON VENT WITH O2 SAT OF 100%. TUBE FEEDING OF GLUCERNA IN PROGRESS AT 65 ML/HR X24 HRS. KIAH MIDLINE TKO. OLVERA INTACT AND DRAINING. NO ACUTE SIGNS OF DISTRESS AT THIS TIME. SAFETY PRECAUTIONS IN PLACE. BED LOCKED AND AT LOWEST LEVEL. X2 RAILS UP AND BED ALARM ON. CALL LIGHT WITHIN REACH. WILL ENDORSE THE PATIENT TO THE LIVING SPECIALIST NURSE FOR ADAM.
--- NOTE | 2022-03-27 19:45 | NUR ---
RN OPENING NOTE RECEIVED PATIENT IN BED; OBTUNDED; A/O X 0. NO S/S OF ANY PAIN OR DISCOMFORT NOTED AT THIS TIME. ON [facility] VENT: PORTEX #9, AC-16; VT-500; FIO2-30%; PEEP-5. NOT IN ANY FORM OF RESPIRATORY DISTRESS. ON TELE MONITOR WHICH READS SR HR-87 BPM AT THIS TIME. WITH OLVERA CATH IN PLACE DRAINING BY GRAVITY TO CLOUDY YELLOW URINE. WITH MULTIPLE SKIN RASHES NOTED. WITH IV ACCESS @ LEFT UA MIDLINE; PATENT, INTACT AND SALINE LOCKED. WITH G-TUBE FEEDING GLUCERNA 1.2 RUNNING AT 65 ML/HR X 24HRS. NO GASTRIC RESIDUAL NOTED. SAFETY MEASURES IMPLEMENTED: HEAD OF BED ELEVATED AT ALL TIMES, CALL LIGHT AND TABLE WITHIN REACH, SIDE RAILS UP X 2, BED IN LOWEST LOCKED POSITION. WILL CONTINUE TO MONITOR.
[2022-03-27 20:00] VITALS: BP 143/101
[2022-03-27] MEDS: SENNOSIDES 8.6 MG TABLET GT SCH (21:44)
[2022-03-28] VITALS: BP 140/88
[2022-03-28] MEDS: ACETAMINOPHEN 650 MG/20.3 ML UDC PO PRN (00:36)
[2022-03-28] MEDS: ALBUTEROL FS 2.5 MG/0.5 ML VIAL.NEB NEB SCH ×4 (01:45→20:12)
[2022-03-28] MEDS: IPRATROPIUM NEB FS 0.5 MG/2.5 ML AMPUL.NEB NEB SCH ×4 (01:45→20:12)
[2022-03-28] MEDS: GLUCERNA 1.2 1,000 ML BOTTLE GT PRN ×2 (03:45→19:18)
[2022-03-28 04:00] VITALS: BP 146/89
--- NOTE | 2022-03-28 06:45 | NUR ---
RN CLOSING NOTE PATIENT IN BED; OBTUNDED; A/O X 0; REMAINED STABLE. ON [facility] VENT: PORTEX #9, AC-16; VT-500; FIO2-30%; PEEP-5. NOT IN ANY FORM OF RESPIRATORY DISTRESS. ON TELE MONITOR WHICH READS SR HR-79 BPM AT THIS TIME. WITH OLVERA CATH IN PLACE DRAINING BY GRAVITY TO CLOUDY YELLOW URINE. IV ACCESS @ LEFT UA MIDLINE; PATENT, INTACT AND SALINE LOCKED. WITH G-TUBE FEEDING GLUCERNA 1.2 RUNNING AT 65 ML/HR X 24HRS. NO GASTRIC RESIDUAL NOTED. SAFETY MEASURES MAINTAINED: HEAD OF BED ELEVATED, CALL LIGHT AND TABLE WITHIN REACH, SIDE RAILS UP X 2, BED IN LOWEST LOCKED POSITION. ENDORSED TO MORNING SHIFT FOR ADAM.
[2022-03-28 07:56] LABS: BASOPHILS # (AUTO) 0.1 K/uL (0.0-0.2); BASOPHILS % (AUTO) 0.7 % (0.0-2.0); EOSINOPHILS % (AUTO) 13.7 % (0.0-6.0); HEMATOCRIT 39 % (39-51); HEMOGLOBIN 12.9 g/dL (13.5-17.5); LYMPHOCYTES # (AUTO) 1.3 K/uL (0.8-4.8); LYMPHOCYTES % (AUTO) 7.6 % (20.0-44.0); MEAN CORPUSCULAR HGB CONC 33 g/dl (31.0-36.0); MEAN CORPUSCULAR VOLUME 97 fL (80-96); MONOCYTES # (AUTO) 0.7 K/uL (0.1-1.30); MONOCYTES % (AUTO) 4.3 % (2.0-12.0); NEUTROPHILS # (AUTO) 12.4 K/uL (1.8-8.9); NEUTROPHILS % (AUTO) 73.7 % (43.0-81.0); PLATELET COUNT (AUTO) 339 K/uL (150-450); RED BLOOD CELL COUNT(AUTO) 4.04 MIL/uL (4.5-6.0); WHITE BLOOD COUNT (AUTO) 16.9 K/uL (4.3-11.0)
[2022-03-28 08:00] VITALS: BP 145/82
[2022-03-28] MEDS: clonazePAM 0.5 MG TABLET GT SCH ×2 (08:41→21:52)
[2022-03-28] MEDS: CHLORHEXIDINE GLUCONATE 15 ML UDC MM SCH ×2 (08:41→16:26)
[2022-03-28] MEDS: LORATADINE 10 MG TABLET PO SCH (08:42)
[2022-03-28] MEDS: DOCUSATE SODIUM LIQ 100 MG/10 ML UDC GT SCH (08:42)
[2022-03-28] MEDS: CARVEDILOL 12.5 MG TABLET GT SCH ×2 (08:42→16:27)
[2022-03-28] MEDS: MIDODRINE HCL (5MG) 5 MG TABLET PO SCH ×3 (08:42→16:27)
[2022-03-28] MEDS: ASCORBIC ACID 500 MG TABLET GT SCH (08:42)
[2022-03-28] MEDS: NYSTATIN CREAM 15 GM TUBE TP SCH ×2 (08:43→16:27)
[2022-03-28 12:00] VITALS: BP 140/89
[2022-03-28] MEDS: VANCOMYCIN 0.75 GM in IV D5W 250 ML IV SCH ×2 (12:58→23:37)
[2022-03-28] MEDS: MEROPENEM 500 MG in IV NS 0.9% 50 ML IV SCH ×2 (14:59→21:52)
[2022-03-28 16:00] VITALS: BP 147/97
[2022-03-28 17:32] LABS: BILIRUBIN,URINE NEGATIVE (NEGATIVE); COLOR,URINE YELLOW (YELLOW); LEUKOCYTE ESTERASE ,URINE NEGATIVE (NEGATIVE); NITRITE, URINE NEGATIVE (NEGATIVE); PH,URINE 5.5 (5.0-8.0); PROTEIN,URINE 1+ mg/dl (NEGATIVE); UGLUCOSE NEGATIVE (NEGATIVE); UROBILINOGEN,URINE 0.2 EU/dL (0.2)
[2022-03-28 18:08] LABS: URIC ACID CRYSTALS,URINE Many /HPF (None Seen)
[2022-03-28 18:09] LABS: CALCIUM OXALATE CRYSTALS,UR Moderate /HPF (None Seen); URINE AMORPHOUS URATE Moderate /HPF (None Seen)
[2022-03-28 18:10] LABS: BACTERIA,URINE None seen /HPF (None Seen); RBC,URINE NONE SEEN /HPF (0-2); SQUAMOUS EPITHELIAL CELL,UR Rare /HPF (None Seen); WBC,URINE NONE SEEN /HPF (0-3)
--- NOTE | 2022-03-28 19:30 | NUR ---
RN NOTES RECEIVED PT FOR CONTINUITY OF CARE. PATIENT A/OX0; OBTUNDED IN NO S/SX OF ACUTE DISTRESS AT THIS TIME; CURRENTLY ON MECHANICAL VENT; SETTING PRESCRIBED, WITH 02 SAT >95% AT THIS TIME. WITH IV ACCESS ON L UA MIDLINE#18 PATENT, INTACT AND FLUSHING WELL. ALSO HAS TUBE FEEDING RUNNING ORDERED. WILL ENSURE SAFETY MEASURES WITHIN THE SHIFT. PATIENT BED ALARM IS ON. HEAD OF BED ELEVATED. BED IS LOCKED, IN LOWEST POSITION AND SIDE RAILS UP. CALL LIGHT WITHIN REACH OF THE PATIENT. WILL CONTINUE TO MONITOR AND REASSESS FOR ANY CHANGES AND WILL CARRY OUT ANY ONGOING AND ACTIVE MD ORDER.
[2022-03-28 20:00] VITALS: BP 150/92
[2022-03-28] MEDS: SENNOSIDES 8.6 MG TABLET GT SCH (21:52)
[2022-03-29] VITALS: BP 149/87
[2022-03-29] MEDS: ALBUTEROL FS 2.5 MG/0.5 ML VIAL.NEB NEB SCH ×4 (02:26→20:16)
[2022-03-29] MEDS: IPRATROPIUM NEB FS 0.5 MG/2.5 ML AMPUL.NEB NEB SCH ×4 (02:26→20:17)
[2022-03-29 04:00] VITALS: BP 138/91
--- NOTE | 2022-03-29 04:00 | NUR ---
RN NOTES PATIENT REMAINED TO BE IN NO SIGNS OF ACUTE RESPIRATORY DISTRESS , VITAL SIGNS STABLE AT THIS TIME. REGULAR TURNING AND REPOSITIONING DONE, SUCTIONING DONE, WOUND CARE AND AM PATIENT CARE RENDERED WILL CONTINUE TO MONITOR AND REASSESS FOR ANY CHANGES THROUGHOUT THE SHIFT.
[2022-03-29] MEDS: MEROPENEM 500 MG in IV NS 0.9% 50 ML IV SCH ×3 (04:11→21:27)
--- NOTE | 2022-03-29 06:48 | NUR ---
RN NOTES RECEIVED PT FOR CONTINUITY OF CARE. PATIENT A/OX0 IN NO S/SX OF ACUTE DISTRESS AT THIS TIME; CURRENTLY ON MECHANICAL VENT; SETTING PRESCRIBED, WITH 02 SAT >95% AT THIS TIME. WITH IV ACCESS PATENT, INTACT AND FLUSHING WELL. GTUBE FEEDING RUNNING PRESCRIBED. WILL ENSURE SAFETY MEASURES WITHIN THE SHIFT. PATIENT BED ALARM IS ON. HEAD OF BED ELEVATED. BED IS LOCKED, IN LOWEST POSITION AND SIDE RAILS UP. CALL LIGHT WITHIN REACH OF THE PATIENT. WILL CONTINUE TO MONITOR AND REASSESS FOR ANY CHANGES AND WILL CARRY OUT ANY ONGOING AND ACTIVE MD ORDER.
[2022-03-29 07:48] LABS: BASOPHILS % (AUTO) 0.3 % (0.0-2.0); EOSINOPHILS % (AUTO) 19.3 % (0.0-6.0); HEMATOCRIT 40 % (39-51); HEMOGLOBIN 13.1 g/dL (13.5-17.5); LYMPHOCYTES # (AUTO) 1.3 K/uL (0.8-4.8); LYMPHOCYTES % (AUTO) 9.4 % (20.0-44.0); MEAN CORPUSCULAR HGB CONC 33 g/dl (31.0-36.0); MEAN CORPUSCULAR VOLUME 97 fL (80-96); MONOCYTES # (AUTO) 0.6 K/uL (0.1-1.30); MONOCYTES % (AUTO) 4.5 % (2.0-12.0); NEUTROPHILS # (AUTO) 9.3 K/uL (1.8-8.9); NEUTROPHILS % (AUTO) 66.5 % (43.0-81.0); PLATELET COUNT (AUTO) 366 K/uL (150-450); RED BLOOD CELL COUNT(AUTO) 4.12 MIL/uL (4.5-6.0)
[2022-03-29 08:00] VITALS: BP 156/96
[2022-03-29] MEDS: MIDODRINE HCL (5MG) 5 MG TABLET PO SCH ×3 (08:36→16:21)
[2022-03-29 08:37] LABS: CALCIUM, SERUM 9.4 mg/dL (8.5-10.1); CREATININE 0.9 mg/dL (0.6-1.3); MAGNESIUM 2.2 mg/dL (1.8-2.4); PHOSPHORUS 4.8 mg/dL (2.5-4.9); POTASSIUM 3.6 mmol/L (3.5-5.1)
[2022-03-29] MEDS: DOCUSATE SODIUM LIQ 100 MG/10 ML UDC GT SCH (08:40)
[2022-03-29] MEDS: CHLORHEXIDINE GLUCONATE 15 ML UDC MM SCH ×2 (08:40→16:21)
[2022-03-29] MEDS: CARVEDILOL 12.5 MG TABLET GT SCH ×2 (08:41→16:21)
[2022-03-29] MEDS: ASCORBIC ACID 500 MG TABLET GT SCH (08:41)
[2022-03-29] MEDS: LORATADINE 10 MG TABLET PO SCH (08:41)
[2022-03-29] MEDS: clonazePAM 0.5 MG TABLET GT SCH ×2 (08:50→21:26)
[2022-03-29] MEDS: NYSTATIN CREAM 15 GM TUBE TP SCH ×2 (08:51→16:21)
[2022-03-29] MEDS: VANCOMYCIN 0.75 GM in IV D5W 250 ML IV SCH (11:35)
[2022-03-29 12:00] VITALS: BP 139/93
[2022-03-29] MEDS: GLUCERNA 1.2 1,000 ML BOTTLE GT PRN (12:32)
[2022-03-29 16:00] VITALS: BP 161/98
--- NOTE | 2022-03-29 19:30 | NUR ---
PT AWAKE, OBTUNDED. NO S/SX OF ACUTE DISTRESS AT THIS TIME; CURRENTLY ON MECHANICAL VENT; SETTING PRESCRIBED, WITH 02 SAT >95% AT THIS TIME. WITH IV ACCESS ON KIAH #18 ON TKO. GTUBE FEEDING INFUSING GLUCERNA 1.2 AT 65ML/HR. FC IN PLACE, DRAINING WELL. SAFETY MEASURES IN PLACE. WILL CONTINUE PLAN OF CARE.
[2022-03-29 20:00] VITALS: BP 145/94
[2022-03-29] MEDS: ACETAMINOPHEN 650 MG/20.3 ML UDC PO PRN (21:26)
[2022-03-29] MEDS: SENNOSIDES 8.6 MG TABLET GT SCH (21:26)
[2022-03-30] VITALS: BP 130/88
[2022-03-30] MEDS: IPRATROPIUM NEB FS 0.5 MG/2.5 ML AMPUL.NEB NEB SCH ×3 (00:52→12:32)
[2022-03-30] MEDS: ALBUTEROL FS 2.5 MG/0.5 ML VIAL.NEB NEB SCH ×3 (00:52→12:32)
[2022-03-30] MEDS: VANCOMYCIN 0.75 GM in IV D5W 250 ML IV SCH ×2 (01:32→12:07)
[2022-03-30 04:00] VITALS: BP 141/90
[2022-03-30] MEDS: MEROPENEM 500 MG in IV NS 0.9% 50 ML IV SCH ×2 (04:12→13:31)
--- NOTE | 2022-03-30 06:41 | NUR ---
PT AWAKE, OBTUNDED. NO S/SX OF ACUTE DISTRESS AT THIS TIME; CURRENTLY ON MECHANICAL VENT; SETTING PRESCRIBED, WITH 02 SAT >95% AT THIS TIME. IV ACCESS ON KIAH #18 DISLODGED, PRESSURE AND DRESSING APPLIED ON SITE. NEW IV ACCESS INSERTED ON LT HAND #22 ON SALINE LOCK. PATENT AND FLUSHES WELL. GTUBE FEEDING INFUSING GLUCERNA 1.2 AT 65ML/HR. FC DRAINING WELL. DUE MEDS AND PRN MEDS GIVEN NEEDED AND ORDERED. SAFETY MEASURES MAINTAINED. WILL ENDORSE TO NEXT NURSE ON DUTY FOR CONTINUITY OF CARE.
--- NOTE | 2022-03-30 07:39 | NUR ---
RN OPENING NOTE: RECEIVED PATIENT IN BED; OBTUNDED; A/O X 0. NO S/S OF PAIN OR DISCOMFORT NOTED AT THIS TIME. ON [facility] VENT: PORTEX #9, AC-16; VT-560; FIO2-30%; PEEP-5, O2 SAT= 99%. NO S/S OF RESP DISTRESS NOTED. TELE MONITOR READS SR HR-71. OLVERA CATH IN PLACE DRAINING BY GRAVITY TO CLOUDY YELLOW URINE. MULTIPLE SKIN RASHES NOTED. IV ACCESS @ LEFT HAND #22, PATENT, INTACT AND SALINE LOCKED. G-TUBE FEEDING GLUCERNA 1.2 RUNNING AT 65 ML/HR X 24HRS. SAFETY MEASURES IN PLACE: HEAD OF BED ELEVATED AT ALL TIMES, CALL LIGHT AND TABLE WITHIN REACH, SIDE RAILS UP X 2, BED IN LOWEST LOCKED POSITION, WILL CONT WITH PLAN OF CARE DURING SHIFT.
[2022-03-30 08:00] VITALS: BP_SYST 141; BP_SYST 156; BP_DIAS 88; BP_DIAS 90
[2022-03-30] MEDS: DOCUSATE SODIUM LIQ 100 MG/10 ML UDC GT SCH (08:22)
[2022-03-30] MEDS: CARVEDILOL 12.5 MG TABLET GT SCH (08:22)
[2022-03-30] MEDS: LORATADINE 10 MG TABLET PO SCH (08:22)
[2022-03-30] MEDS: clonazePAM 0.5 MG TABLET GT SCH (08:23)
[2022-03-30] MEDS: ASCORBIC ACID 500 MG TABLET GT SCH (08:23)
[2022-03-30] MEDS: CHLORHEXIDINE GLUCONATE 15 ML UDC MM SCH (08:23)
[2022-03-30] MEDS: NYSTATIN CREAM 15 GM TUBE TP SCH (08:40)
[2022-03-30] MEDS: MIDODRINE HCL (5MG) 5 MG TABLET PO SCH ×2 (09:00→13:00)
[2022-03-30 09:49] LABS: CALCIUM, SERUM 8.9 mg/dL (8.5-10.1); CREATININE 0.9 mg/dL (0.6-1.3); POTASSIUM 3.9 mmol/L (3.5-5.1)
[2022-03-30 12:00] VITALS: BP 134/84
[2022-03-30 13:00] VITALS: BP 134/84
--- NOTE | 2022-03-30 15:30 | NUR ---
RN DC NOTES: REPORT GIVEN TO MICHAEL MARTINEZ AT [facility]. PT VITALS WNL, NO S/S OF RESPIRATORY DISTRESS ON MECHANICAL VENTILATOR, SETTINGS ORDERED. OLVERA CATHETER REMOVED, IV ACCESS REMAINED IN PLACE FOR IV ANTIBIOTICS POST DISCHARGE. REPORT GIVEN TO EMT, [facility], PT LEFT UNIT VIA GURNEY.
== END 2022-03-30 15:33 | DRG 720 ==
LOC: ER 11:17 → TRANSITION 17:56 → TELE1 19:07 → TELE-TD 19:19 → TELE1 03-17 09:45
PROVIDERS: ADMIT Internal Medicine; ATTEND Internal Medicine
PROC: 5A1955Z Respiratory Ventilation, Greater than 96 Consecutive Hours (ICD-10-PCS; principal; 2022-03-15)
PROC: 05HA33Z Insertion of Infusion Device into Left Brachial Vein, Percutaneous Approach (ICD-10-PCS; 2022-03-21)
DX: A41.9 Sepsis, unspecified organism (principal); N17.0 Acute kidney failure with tubular necrosis; G93.49 Other encephalopathy; E87.20 Acidosis, unspecified; E44.0 Moderate protein-calorie malnutrition; E87.1 Hypo-osmolality and hyponatremia; E88.09 Other disorders of plasma-protein metabolism, not elsewhere classified; D72.10 Eosinophilia, unspecified; I42.9 Cardiomyopathy, unspecified; G93.1 Anoxic brain damage, not elsewhere classified; Z99.11 Dependence on respirator [ventilator] status; Z93.0 Tracheostomy status; Z20.822 Contact with and (suspected) exposure to COVID-19; E87.5 Hyperkalemia; Z93.1 Gastrostomy status; R13.10 Dysphagia, unspecified; Z86.74 Personal history of sudden cardiac arrest; F41.9 Anxiety disorder, unspecified; D75.1 Secondary polycythemia; Z79.01 Long term (current) use of anticoagulants; Z79.51 Long term (current) use of inhaled steroids; Z79.899 Other long term (current) drug therapy; R65.20 Severe sepsis without septic shock; N39.0 Urinary tract infection, site not specified; I13.0 Hypertensive heart and chronic kidney disease with heart failure and stage 1 through stage 4 chronic kidney disease, or unspecified chronic kidney disease; N18.9 Chronic kidney disease, unspecified; J96.10 Chronic respiratory failure, unspecified whether with hypoxia or hypercapnia; J98.11 Atelectasis; I50.20 Unspecified systolic (congestive) heart failure; E86.0 Dehydration; B96.4 Proteus (mirabilis) (morganii) as the cause of diseases classified elsewhere; Z16.12 Extended spectrum beta lactamase (ESBL) resistance; L73.9 Follicular disorder, unspecified
CPT/HCPCS: 31720; 36410; 36415; 71045-TC; 74018; 76770-TC; 80048-TC; 80053-TC; 80076-TC; 80202-TC; 81001; 83605-TC; 83735-TC; 84100-TC; 84484-TC; 85025-TC; 85730-TC; 87040-TC; 87081-TC; 87086-TC; 94003-TC; 94760-TC; 94762-TC; 94799-TC; 97110-TC; A6253; A7526; C9803; G0378; J0360; J0692; J1644; J2185; J2543; J3370; J7030; J7042; J7050; J7060; J7070

== ENCOUNTER 2022-12-04 01:06 | Inpatient (IN) | payer OTHER ==
[~2022-12-04] VITALS: Ht 170.2 cm; Wt 74.6 kg
[~2022-12-04 01:06] MED LIST changes: -ENOX40DI SQ; +MERO500P IV
[2022-12-04 02:16] LABS: BASOPHILS # (AUTO) 0.1 K/uL (0.0-0.2); BASOPHILS % (AUTO) 0.6 % (0.0-2.0); EOSINOPHILS # (AUTO) 0.1 K/uL (0.0-0.7); EOSINOPHILS % (AUTO) 0.8 % (0.0-6.0); HEMATOCRIT 44 % (39-51); HEMOGLOBIN 14.7 g/dL (13.5-17.5); LYMPHOCYTES % (AUTO) 8.4 % (20.0-44.0); MEAN CORPUSCULAR HEMOGLOBIN 31 PG (26.0-33.0); MEAN CORPUSCULAR HGB CONC 33 g/dl (31.0-36.0); MEAN CORPUSCULAR VOLUME 92 fL (80-96); MONOCYTES # (AUTO) 0.7 K/uL (0.1-1.30); MONOCYTES % (AUTO) 6.3 % (2.0-12.0); NEUTROPHILS # (AUTO) 9.6 K/uL (1.8-8.9); NEUTROPHILS % (AUTO) 83.9 % (43.0-81.0); PLATELET COUNT (AUTO) 299 K/uL (150-450); RED BLOOD CELL COUNT(AUTO) 4.79 MIL/uL (4.5-6.0); RED CELL DISTRIBUTION WIDTH 14.1 % (11.5-15.0); WHITE BLOOD COUNT (AUTO) 11.4 K/uL (4.3-11.0)
[2022-12-04 02:20] LABS: APPEARANCE,URINE CLEAR (CLEAR); BILIRUBIN,URINE NEGATIVE (NEGATIVE); BLOOD, URINE NEGATIVE Ery/uL (NEGATIVE); COLOR,URINE YELLOW (YELLOW); KETONES,URINE NEGATIVE (NEGATIVE); LEUKOCYTE ESTERASE ,URINE NEGATIVE (NEGATIVE); NITRITE, URINE NEGATIVE (NEGATIVE); PROTEIN,URINE 2+ mg/dl (NEGATIVE); UGLUCOSE NEGATIVE (NEGATIVE)
[2022-12-04 02:22] LABS: PH,URINE >9.0 (5.0-8.0)
[2022-12-04] MEDS ORDERED: PANTOPRAZOLE 40 MG VIAL ONE ×2 (02:23→02:28)
[2022-12-04 02:25] LABS: CALCIUM, SERUM 9.7 mg/dL (8.5-10.1); CARBON DIOXIDE 26 mmol/L (21-32); CHLORIDE 98 mmol/L (98-107); GLUCOSE 145 mg/dL (74-106); POTASSIUM 3.1 mmol/L (3.5-5.1); SODIUM SERUM 137 mmol/L (136-145); UREA NITROGEN, BLOOD 38 mg/dL (7-18)
[2022-12-04 02:28] LABS: INR 1.08 (0.91-1.10); PARTIAL THROMBOPLASTIN TIME 29.6 SEC (24.3-34.3); PROTHROMBIN TIME 11.3 SECS (9.2-11.1)
[2022-12-04] MEDS ORDERED: PANTOPRAZOLE 80 MG in IV NS 0.9% 100 ML IV ONE (02:30)
[2022-12-04] MEDS ORDERED: PANTOPRAZOLE 80 MG in IV NS 0.9% 500 ML IV ONE (02:30)
[2022-12-04 02:32] LABS: ALANINE AMINOTRANSFERASE 50 U/L (12-78); ALBUMIN 2.8 g/dL (3.4-5.0); ALKALINE PHOSPHATASE 107 U/L (46-116); ASPARTATE AMINOTRANSFERASE 18 U/L (15-37); BILIRUBIN,DIRECT 0.3 mg/dL (0.0-0.2); BILIRUBIN,TOTAL 0.8 mg/dL (0.2-1.0); LIPASE 86 U/L (73-393); TOTAL PROTEIN, SERUM 8.6 g/dL (6.4-8.2)
[2022-12-04 02:51] LABS: ADD URINE CULTURE NO; BACTERIA,URINE 1+ /HPF (None Seen); MUCUS,URINE Moderate /LPF (None Seen); RBC,URINE 0-2 /HPF (0-2); SQUAMOUS EPITHELIAL CELL,UR None Seen /HPF (None Seen); WBC,URINE 0-2 /HPF (0-3)
[2022-12-04 05:39] VITALS: BP 118/81; TEMP 98.7; O2SAT 100
[2022-12-04] MEDS ORDERED: ONDANSETRON HCL/PF 4 MG/2 ML VIAL IVP PRN (06:30)
[2022-12-04] MEDS ORDERED: MAGNESIUM HYDROXIDE 30 ML UDC PO PRN (06:30)
[2022-12-04] MEDS ORDERED: MAG HYDROX/AL HYDROX/SIMETH 30 ML UDC PO PRN (06:30)
[2022-12-04] MEDS ORDERED: ACETAMINOPHEN 325 MG TABLET PO PRN (06:30)
[2022-12-04] MEDS ORDERED: ZOLPIDEM TARTRATE 5 MG TABLET PO PRN (06:30)
[2022-12-04] MEDS ORDERED: Z GUARD REMEDY 4 OZ OINT TP PRN ×2 (06:30→17:00)
[2022-12-04] MEDS: POTASSIUM CL. PREMIX PERIPHER. 50 ML IV SCH ×4 (06:49→10:50)
[2022-12-04] MEDS: IV D5/0.45 NACL 1,000 ML IV PRN ×3 (06:49→22:47)
[2022-12-04 08:00] VITALS: BP 109/80; TEMP 98.5; O2SAT 99
[2022-12-04] MEDS ORDERED: ONDA4TAB5 GT (08:38)
[2022-12-04] MEDS ORDERED: ALLA266C2 TP (08:38)
[2022-12-04] MEDS ORDERED: NUT.250L18 GT (08:38)
[2022-12-04] MEDS ORDERED: BISA10SU11 RC (08:38)
[2022-12-04] MEDS ORDERED: MAGN400O6 GT (08:38)
[2022-12-04] MEDS ORDERED: NA P133E RC (08:38)
[2022-12-04 12:00] VITALS: BP 114/80; TEMP 98.9; O2SAT 99
[2022-12-04] MEDS ORDERED: ALBUTEROL HALF STRENGTH 1.25 MG/3 ML VIAL.NEB NEB PRN (13:30)
[2022-12-04 15:42] LABS: ABG BASE EXCESS 3.6 mmol/L; ABG OXYGEN SATURATION 99.2 % (92.0-98.5); ABG PCO2 32.4 mmHg (35.0-45.0); ABG PH 7.521 (7.350-7.450); ABG PO2 178.5 mmHg (75.0-100.0); ABG TOTAL HEMOGLOBIN 13.7 G/dL (13.5-18.0); AaDO2 69.4 mmHg; COHb 0.3 % (0.5-1.5); MetHb 0.4 % (0.0-1.5); O2Hb 98.5 % (94.0-97.0); SITE, ABG Right Brachial; VENT MODE, BG AC 16 450 40% 5%
[2022-12-04 16:00] VITALS: BP 115/83; TEMP 98.8; O2SAT 99
[2022-12-04 20:00] VITALS: BP 115/78; TEMP 98.2; O2SAT 99
[2022-12-04] MEDS: PANTOPRAZOLE 40 MG VIAL IV SCH (21:52)
[2022-12-05] VITALS (7 sets, daily range): BP systolic 105–116; BP diastolic 69–79; TEMP 98.1–100.4; O2SAT 99–100
[2022-12-05 07:23] LABS: BASOPHILS % (AUTO) 0.4 % (0.0-2.0); EOSINOPHILS # (AUTO) 0.3 K/uL (0.0-0.7); EOSINOPHILS % (AUTO) 4.7 % (0.0-6.0); HEMATOCRIT 38 % (39-51); HEMOGLOBIN 12.4 g/dL (13.5-17.5); LYMPHOCYTES # (AUTO) 1.4 K/uL (0.8-4.8); LYMPHOCYTES % (AUTO) 20.8 % (20.0-44.0); MEAN CORPUSCULAR HEMOGLOBIN 31 PG (26.0-33.0); MEAN CORPUSCULAR HGB CONC 33 g/dl (31.0-36.0); MEAN CORPUSCULAR VOLUME 93 fL (80-96); MONOCYTES # (AUTO) 0.7 K/uL (0.1-1.30); MONOCYTES % (AUTO) 10.2 % (2.0-12.0); NEUTROPHILS # (AUTO) 4.4 K/uL (1.8-8.9); NEUTROPHILS % (AUTO) 63.9 % (43.0-81.0); PLATELET COUNT (AUTO) 257 K/uL (150-450); RED BLOOD CELL COUNT(AUTO) 4.06 MIL/uL (4.5-6.0); RED CELL DISTRIBUTION WIDTH 13.7 % (11.5-15.0); WHITE BLOOD COUNT (AUTO) 6.8 K/uL (4.3-11.0)
[2022-12-05 07:48] LABS: CALCIUM, SERUM 9.4 mg/dL (8.5-10.1); CREATININE 0.8 mg/dL (0.6-1.3); MAGNESIUM 2.1 mg/dL (1.8-2.4); PHOSPHORUS 3.3 mg/dL (2.5-4.9); POTASSIUM 3.4 mmol/L (3.5-5.1)
[2022-12-05] MEDS: IV D5/0.45 NACL 1,000 ML IV PRN ×2 (08:55→17:01)
[2022-12-05] MEDS: PANTOPRAZOLE 40 MG VIAL IV SCH ×2 (08:56→21:07)
[2022-12-05] MEDS ORDERED: NA PHOS,M-B/NA PHOS,DI-BA 1 EA ENEMA RC ONE ×2 (10:00→11:30)
[2022-12-05 10:25] LABS: ALBUMIN 2.3 g/dL (3.4-5.0); BILIRUBIN,DIRECT 0.2 mg/dL (0.0-0.2); BILIRUBIN,TOTAL 0.5 mg/dL (0.2-1.0); TOTAL PROTEIN, SERUM 6.9 g/dL (6.4-8.2)
[2022-12-05] MEDS: POTASSIUM CL. PREMIX PERIPHER. 50 ML IV SCH ×2 (12:55→14:20)
[2022-12-06] VITALS: BP 123/80; TEMP 99.2; O2SAT 95
[2022-12-06] MEDS: IV D5/0.45 NACL 1,000 ML IV PRN ×2 (02:31→11:25)
[2022-12-06 04:00] VITALS: BP 121/67; TEMP 98.9; O2SAT 99
[2022-12-06 07:16] LABS: BASOPHILS % (AUTO) 0.2 % (0.0-2.0); EOSINOPHILS # (AUTO) 0.3 K/uL (0.0-0.7); HEMATOCRIT 38 % (39-51); HEMOGLOBIN 12.6 g/dL (13.5-17.5); LYMPHOCYTES # (AUTO) 1.1 K/uL (0.8-4.8); LYMPHOCYTES % (AUTO) 10.9 % (20.0-44.0); MEAN CORPUSCULAR HEMOGLOBIN 31 PG (26.0-33.0); MEAN CORPUSCULAR HGB CONC 34 g/dl (31.0-36.0); MEAN CORPUSCULAR VOLUME 93 fL (80-96); MONOCYTES # (AUTO) 0.8 K/uL (0.1-1.30); MONOCYTES % (AUTO) 8.2 % (2.0-12.0); NEUTROPHILS # (AUTO) 7.9 K/uL (1.8-8.9); NEUTROPHILS % (AUTO) 77.7 % (43.0-81.0); PLATELET COUNT (AUTO) 285 K/uL (150-450); RED BLOOD CELL COUNT(AUTO) 4.05 MIL/uL (4.5-6.0); RED CELL DISTRIBUTION WIDTH 13.1 % (11.5-15.0); WHITE BLOOD COUNT (AUTO) 10.2 K/uL (4.3-11.0)
[2022-12-06 07:30] LABS: ALBUMIN 2.3 g/dL (3.4-5.0); BILIRUBIN,TOTAL 0.5 mg/dL (0.2-1.0); CREATININE 0.7 mg/dL (0.6-1.3); MAGNESIUM 1.7 mg/dL (1.8-2.4); POTASSIUM 3.7 mmol/L (3.5-5.1); TOTAL PROTEIN, SERUM 6.9 g/dL (6.4-8.2)
[2022-12-06 08:00] VITALS: BP 101/69; TEMP 98.9; O2SAT 100
[2022-12-06] MEDS: PANTOPRAZOLE 40 MG VIAL IV SCH ×2 (09:24→21:43)
[2022-12-06] MEDS ORDERED: MAGNESIUM OXIDE 400 MG TABLET PO ONE (11:00)
[2022-12-06] MEDS: Magnesium 1GM/D5W 100ML PREMIX 100 ML IV SCH ×2 (11:27→16:46)
[2022-12-06 12:00] VITALS: BP 114/75; TEMP 98.5; O2SAT 100
[2022-12-06] MEDS ORDERED: BISACODYL SUPP (10 MG) 10 MG/SUPP.RECT SUPP.RECT RC PRN (15:30)
[2022-12-06 16:00] VITALS: BP 112/67; TEMP 98.8; O2SAT 100
[2022-12-06] MEDS: CARVEDILOL 12.5 MG TABLET GT SCH (17:00)
[2022-12-06] MEDS: CHLORHEXIDINE GLUCONATE 15 ML UDC MM SCH (17:09)
[2022-12-06] MEDS ORDERED: PIPERACILLIN /TAZOBACTAM 3.375 G in IV D5W 50 ML IV SCH (18:00)
[2022-12-06] MEDS: PIPERACILLIN /TAZOBACTAM 3.375 G in IV D5W 100 ML IV SCH (18:05)
[2022-12-06 20:28] VITALS: BP 114/67; TEMP 97.6; O2SAT 100
[2022-12-06] MEDS: clonazePAM 0.5 MG TABLET GT SCH (21:00)
[2022-12-06] MEDS: SENNOSIDES 8.6 MG TABLET GT SCH (21:43)
[2022-12-07] VITALS: BP 117/69; TEMP 98; O2SAT 100
[2022-12-07] MEDS: PIPERACILLIN /TAZOBACTAM 3.375 G in IV D5W 100 ML IV SCH ×3 (01:21→17:35)
[2022-12-07] MEDS: IV D5/0.45 NACL 1,000 ML IV PRN ×3 (03:10→21:43)
[2022-12-07 04:00] VITALS: BP 116/83; TEMP 97.8; O2SAT 100
[2022-12-07 07:47] LABS: BASOPHILS % (AUTO) 0.3 % (0.0-2.0); EOSINOPHILS # (AUTO) 0.1 K/uL (0.0-0.7); EOSINOPHILS % (AUTO) 0.9 % (0.0-6.0); HEMATOCRIT 38 % (39-51); HEMOGLOBIN 12.7 g/dL (13.5-17.5); LYMPHOCYTES # (AUTO) 0.6 K/uL (0.8-4.8); LYMPHOCYTES % (AUTO) 4.7 % (20.0-44.0); MEAN CORPUSCULAR HEMOGLOBIN 31 PG (26.0-33.0); MEAN CORPUSCULAR HGB CONC 34 g/dl (31.0-36.0); MEAN CORPUSCULAR VOLUME 92 fL (80-96); MONOCYTES # (AUTO) 0.6 K/uL (0.1-1.30); MONOCYTES % (AUTO) 4.2 % (2.0-12.0); NEUTROPHILS # (AUTO) 12.2 K/uL (1.8-8.9); NEUTROPHILS % (AUTO) 89.9 % (43.0-81.0); PLATELET COUNT (AUTO) 297 K/uL (150-450); RED BLOOD CELL COUNT(AUTO) 4.12 MIL/uL (4.5-6.0); RED CELL DISTRIBUTION WIDTH 13.4 % (11.5-15.0); WHITE BLOOD COUNT (AUTO) 13.5 K/uL (4.3-11.0)
[2022-12-07 08:00] VITALS: BP 95/66; TEMP 98.6; O2SAT 100
[2022-12-07 08:00] LABS: ALBUMIN 2.4 g/dL (3.4-5.0); BILIRUBIN,TOTAL 0.8 mg/dL (0.2-1.0); CALCIUM, SERUM 8.7 mg/dL (8.5-10.1); CREATININE 0.8 mg/dL (0.6-1.3); MAGNESIUM 1.8 mg/dL (1.8-2.4); PHOSPHORUS 2.7 mg/dL (2.5-4.9); POTASSIUM 3.4 mmol/L (3.5-5.1); TOTAL PROTEIN, SERUM 6.9 g/dL (6.4-8.2)
[2022-12-07] MEDS: PANTOPRAZOLE 40 MG VIAL IV SCH ×3 (08:45→21:29)
[2022-12-07] MEDS: CHLORHEXIDINE GLUCONATE 15 ML UDC MM SCH ×2 (08:45→17:35)
[2022-12-07] MEDS: clonazePAM 0.5 MG TABLET GT SCH ×2 (08:46→21:00)
[2022-12-07] MEDS: CARVEDILOL 12.5 MG TABLET GT SCH ×2 (08:46→17:35)
[2022-12-07] MEDS: POTASSIUM CL. PREMIX PERIPHER. 50 ML IV SCH ×2 (10:06→11:03)
[2022-12-07 12:00] VITALS: BP 102/64; TEMP 98.2; O2SAT 100
[2022-12-07 16:00] VITALS: BP 107/65; TEMP 98.2; O2SAT 100
[2022-12-07 20:00] VITALS: BP 92/59; TEMP 97.9; O2SAT 95
[2022-12-07] MEDS: SENNOSIDES 8.6 MG TABLET GT SCH (22:00)
[2022-12-08] VITALS: BP 115/72; TEMP 98.2; O2SAT 100
[2022-12-08] MEDS: PIPERACILLIN /TAZOBACTAM 3.375 G in IV D5W 100 ML IV SCH ×3 (01:18→17:06)
[2022-12-08 04:00] VITALS: BP 118/78; TEMP 98; O2SAT 96
[2022-12-08 08:00] VITALS: BP 102/64; TEMP 97.9; O2SAT 98
[2022-12-08] MEDS: CARVEDILOL 12.5 MG TABLET GT SCH ×2 (08:36→16:00)
[2022-12-08] MEDS: PANTOPRAZOLE 40 MG VIAL IV SCH ×2 (08:41→20:52)
[2022-12-08] MEDS: clonazePAM 0.5 MG TABLET GT SCH ×2 (08:41→20:52)
[2022-12-08] MEDS: CHLORHEXIDINE GLUCONATE 15 ML UDC MM SCH ×2 (08:42→16:05)
[2022-12-08] MEDS: IV D5/0.45 NACL 1,000 ML IV PRN ×2 (09:37→18:05)
[2022-12-08 12:00] VITALS: BP 108/56; TEMP 98; O2SAT 100
[2022-12-08 16:00] VITALS: BP 117/66; TEMP 98.1; O2SAT 100
[2022-12-08 20:00] VITALS: BP 117/80; TEMP 98.5; O2SAT 98
[2022-12-08] MEDS: SENNOSIDES 8.6 MG TABLET GT SCH (20:52)
[2022-12-09] VITALS: BP 128/76; TEMP 98.5; O2SAT 98
[2022-12-09] MEDS: PIPERACILLIN /TAZOBACTAM 3.375 G in IV D5W 100 ML IV SCH ×3 (02:03→17:39)
[2022-12-09] MEDS: IV D5/0.45 NACL 1,000 ML IV PRN ×3 (02:26→22:32)
[2022-12-09 04:00] VITALS: BP 123/86; TEMP 98.7; O2SAT 96
[2022-12-09 07:20] LABS: BASOPHILS % (AUTO) 0.5 % (0.0-2.0); EOSINOPHILS # (AUTO) 0.4 K/uL (0.0-0.7); EOSINOPHILS % (AUTO) 6.7 % (0.0-6.0); HEMATOCRIT 37 % (39-51); HEMOGLOBIN 12.6 g/dL (13.5-17.5); LYMPHOCYTES # (AUTO) 1.3 K/uL (0.8-4.8); LYMPHOCYTES % (AUTO) 20.3 % (20.0-44.0); MEAN CORPUSCULAR HEMOGLOBIN 31 PG (26.0-33.0); MEAN CORPUSCULAR HGB CONC 34 g/dl (31.0-36.0); MEAN CORPUSCULAR VOLUME 91 fL (80-96); MONOCYTES # (AUTO) 0.4 K/uL (0.1-1.30); MONOCYTES % (AUTO) 5.6 % (2.0-12.0); NEUTROPHILS # (AUTO) 4.2 K/uL (1.8-8.9); NEUTROPHILS % (AUTO) 66.9 % (43.0-81.0); PLATELET COUNT (AUTO) 331 K/uL (150-450); RED BLOOD CELL COUNT(AUTO) 4.04 MIL/uL (4.5-6.0); RED CELL DISTRIBUTION WIDTH 13.6 % (11.5-15.0); WHITE BLOOD COUNT (AUTO) 6.3 K/uL (4.3-11.0)
[2022-12-09 07:32] LABS: ALBUMIN 2.3 g/dL (3.4-5.0); BILIRUBIN,TOTAL 0.5 mg/dL (0.2-1.0); CALCIUM, SERUM 8.9 mg/dL (8.5-10.1); CREATININE 0.8 mg/dL (0.6-1.3); TOTAL PROTEIN, SERUM 6.6 g/dL (6.4-8.2)
[2022-12-09 07:43] LABS: POTASSIUM 2.8 mmol/L (3.5-5.1)
[2022-12-09 08:00] VITALS: BP 112/70; TEMP 98.3; O2SAT 96
[2022-12-09] MEDS: PANTOPRAZOLE 40 MG VIAL IV SCH ×2 (08:23→21:36)
[2022-12-09] MEDS: clonazePAM 0.5 MG TABLET GT SCH ×2 (08:23→21:36)
[2022-12-09] MEDS: CHLORHEXIDINE GLUCONATE 15 ML UDC MM SCH ×2 (08:23→16:14)
[2022-12-09] MEDS: CARVEDILOL 12.5 MG TABLET GT SCH ×2 (08:24→16:15)
[2022-12-09] MEDS: POTASSIUM CL. PREMIX PERIPHER. 50 ML IV SCH ×6 (09:17→17:38)
[2022-12-09 12:00] VITALS: BP 113/80; TEMP 97.8; O2SAT 96
[2022-12-09] MEDS ORDERED: NALOXONE PREFILLED SYRINGE 2 MG/2 ML SYRINGE IV PRN (13:00)
[2022-12-09] MEDS ORDERED: MIDAZOLAM HCL 2 MG/2ML VIAL IV PRN (13:00)
[2022-12-09] MEDS ORDERED: FLUMAZENIL 0.5 MG VIAL IV PRN (13:00)
[2022-12-09] MEDS ORDERED: FENTANYL PF 250MCG/5ML AMPUL IV PRN (13:00)
[2022-12-09 16:00] VITALS: BP 124/84; TEMP 97.9; O2SAT 96
[2022-12-09 20:00] VITALS: BP 130/80; TEMP 98.2; O2SAT 99
[2022-12-09] MEDS: SENNOSIDES 8.6 MG TABLET GT SCH (21:36)
[2022-12-10] VITALS: BP 130/80; TEMP 98.2; O2SAT 99
[2022-12-10] MEDS: PIPERACILLIN /TAZOBACTAM 3.375 G in IV D5W 100 ML IV SCH ×3 (02:13→17:31)
[2022-12-10 04:00] VITALS: BP 90/71; TEMP 98.2; O2SAT 99
[2022-12-10 05:49] LABS: BASOPHILS % (AUTO) 0.2 % (0.0-2.0); EOSINOPHILS # (AUTO) 0.3 K/uL (0.0-0.7); EOSINOPHILS % (AUTO) 3.8 % (0.0-6.0); HEMATOCRIT 38 % (39-51); HEMOGLOBIN 12.6 g/dL (13.5-17.5); LYMPHOCYTES # (AUTO) 1.1 K/uL (0.8-4.8); LYMPHOCYTES % (AUTO) 13.2 % (20.0-44.0); MEAN CORPUSCULAR HEMOGLOBIN 31 PG (26.0-33.0); MEAN CORPUSCULAR HGB CONC 33 g/dl (31.0-36.0); MEAN CORPUSCULAR VOLUME 93 fL (80-96); MONOCYTES # (AUTO) 0.4 K/uL (0.1-1.30); MONOCYTES % (AUTO) 4.8 % (2.0-12.0); NEUTROPHILS # (AUTO) 6.4 K/uL (1.8-8.9); PLATELET COUNT (AUTO) 396 K/uL (150-450); RED BLOOD CELL COUNT(AUTO) 4.06 MIL/uL (4.5-6.0); RED CELL DISTRIBUTION WIDTH 13.7 % (11.5-15.0); WHITE BLOOD COUNT (AUTO) 8.2 K/uL (4.3-11.0)
[2022-12-10 05:59] LABS: CALCIUM, SERUM 8.9 mg/dL (8.5-10.1); CREATININE 0.8 mg/dL (0.6-1.3); POTASSIUM 2.9 mmol/L (3.5-5.1)
[2022-12-10 08:00] VITALS: BP 93/67; TEMP 97.5; O2SAT 100
[2022-12-10] MEDS: CARVEDILOL 12.5 MG TABLET GT SCH ×2 (09:00→17:28)
[2022-12-10] MEDS: clonazePAM 0.5 MG TABLET GT SCH ×2 (09:00→22:04)
[2022-12-10] MEDS: CHLORHEXIDINE GLUCONATE 15 ML UDC MM SCH ×2 (10:13→17:28)
[2022-12-10] MEDS: POTASSIUM CL. PREMIX PERIPHER. 50 ML IV SCH ×6 (10:13→17:29)
[2022-12-10] MEDS: PANTOPRAZOLE 40 MG VIAL IV SCH ×2 (10:13→22:04)
[2022-12-10] MEDS: IV D5/0.45 NACL 1,000 ML IV PRN (10:29)
[2022-12-10] MEDS ORDERED: HOME MED MISCELLANEOUS XX SCH (11:00)
[2022-12-10] MEDS ORDERED: GLUCERNA 1.2 1,000 ML BOTTLE NG PRN (11:00)
[2022-12-10 12:00] VITALS: BP 113/81; TEMP 97.7; O2SAT 100
[2022-12-10 16:00] VITALS: BP 123/89; TEMP 98.2; O2SAT 100
[2022-12-10 20:00] VITALS: BP 114/69; TEMP 98.4; O2SAT 100
[2022-12-10] MEDS: SENNOSIDES 8.6 MG TABLET GT SCH (22:04)
[2022-12-11] VITALS: BP 118/71; TEMP 98.6; O2SAT 100
[2022-12-11] MEDS: PIPERACILLIN /TAZOBACTAM 3.375 G in IV D5W 100 ML IV SCH ×2 (02:19→10:02)
[2022-12-11 04:00] VITALS: BP 112/67; TEMP 98.6; O2SAT 100
[2022-12-11 05:54] LABS: BASOPHILS % (AUTO) 0.3 % (0.0-2.0); EOSINOPHILS # (AUTO) 0.4 K/uL (0.0-0.7); HEMATOCRIT 39 % (39-51); HEMOGLOBIN 13.1 g/dL (13.5-17.5); LYMPHOCYTES # (AUTO) 1.4 K/uL (0.8-4.8); LYMPHOCYTES % (AUTO) 21.4 % (20.0-44.0); MEAN CORPUSCULAR HEMOGLOBIN 31 PG (26.0-33.0); MEAN CORPUSCULAR HGB CONC 34 g/dl (31.0-36.0); MEAN CORPUSCULAR VOLUME 92 fL (80-96); MONOCYTES # (AUTO) 0.3 K/uL (0.1-1.30); MONOCYTES % (AUTO) 4.8 % (2.0-12.0); NEUTROPHILS # (AUTO) 4.5 K/uL (1.8-8.9); NEUTROPHILS % (AUTO) 67.5 % (43.0-81.0); PLATELET COUNT (AUTO) 339 K/uL (150-450); RED CELL DISTRIBUTION WIDTH 13.8 % (11.5-15.0); WHITE BLOOD COUNT (AUTO) 6.7 K/uL (4.3-11.0)
[2022-12-11 06:03] LABS: CALCIUM, SERUM 9.3 mg/dL (8.5-10.1); CREATININE 0.9 mg/dL (0.6-1.3); POTASSIUM 3.2 mmol/L (3.5-5.1)
[2022-12-11 08:00] VITALS: BP 108/77; TEMP 98.1; O2SAT 100
[2022-12-11] MEDS: clonazePAM 0.5 MG TABLET GT SCH (08:41)
[2022-12-11] MEDS: CHLORHEXIDINE GLUCONATE 15 ML UDC MM SCH (08:41)
[2022-12-11] MEDS: CARVEDILOL 12.5 MG TABLET GT SCH (08:43)
[2022-12-11] MEDS ORDERED: PANTOPRAZOLE 40 MG/PACK PACK GT SCH (09:00)
[2022-12-11] MEDS ORDERED: AMOX-430 GT (11:23)
[2022-12-11] MEDS ORDERED: POTASSIUM CHLORIDE 20 MEQ POWDER PACKET GT ONE (11:30)
[2022-12-11 12:00] VITALS: BP 108/73; TEMP 98.1; O2SAT 100
== END 2022-12-11 15:52 ==
LOC: ER 01:12 → TELE-TD 03:45 → TELE1 07:58
PROVIDERS: ADMIT Nurse Practitioner Family; ATTEND Nurse Practitioner Acute Care
PROC: 5A1955Z Respiratory Ventilation, Greater than 96 Consecutive Hours (ICD-10-PCS; principal; 2022-12-04)
PROC: 0F9430Z Drainage of Gallbladder with Drainage Device, Percutaneous Approach (ICD-10-PCS; 2022-12-09)
PROC: 05HA33Z Insertion of Infusion Device into Left Brachial Vein, Percutaneous Approach (ICD-10-PCS; 2022-12-10)
DX: K80.01 Calculus of gallbladder with acute cholecystitis with obstruction (principal); J96.20 Acute and chronic respiratory failure, unspecified whether with hypoxia or hypercapnia; G93.41 Metabolic encephalopathy; G93.1 Anoxic brain damage, not elsewhere classified; K92.2 Gastrointestinal hemorrhage, unspecified; D68.59 Other primary thrombophilia; E87.3 Alkalosis; Z99.11 Dependence on respirator [ventilator] status; Z93.0 Tracheostomy status; I50.22 Chronic systolic (congestive) heart failure; F41.9 Anxiety disorder, unspecified; Z20.822 Contact with and (suspected) exposure to COVID-19; R13.10 Dysphagia, unspecified; Z86.74 Personal history of sudden cardiac arrest; Z93.1 Gastrostomy status; Z79.51 Long term (current) use of inhaled steroids; Z79.899 Other long term (current) drug therapy; D72.829 Elevated white blood cell count, unspecified; E87.6 Hypokalemia; R79.89 Other specified abnormal findings of blood chemistry; Z87.448 Personal history of other diseases of urinary system; Z86.69 Personal history of other diseases of the nervous system and sense organs; Z74.09 Other reduced mobility
CPT/HCPCS: 31720; 36415; 36600; 71045-TC; 75989-TC; 76705-TC; 78226; 80048-TC; 80053-TC; 80076-TC; 81001; 82803-TC; 83690-TC; 83735-TC; 84100-TC; 84484-TC; 85025-TC; 85027-TC; 85730-TC; 87081-TC; 87086-TC; 94003-TC; 94762-TC; 94799-TC; 99082-TC; A4217; A4223; A4349; A6403; A9537; C9113; C9803; G0378; J2543; J3475; J3480; J3490; J7030; J7040; J7042; J7050; J7060

== ENCOUNTER 2023-10-21 08:44 | Inpatient (IN) | payer OTHER ==
[~2023-10-21] VITALS: Ht 167.6 cm; Wt 75.7 kg
[2023-10-21 07:45] VITALS: BP 116/78; TEMP 98.8; O2SAT 100
[~2023-10-21 08:44] MED LIST changes: +ALLA266C2 TP; +AMOX-430 GT; -ASCO-352 GT; +BISA10SU11 RC; -CLON0.1T GT; +MAGN400O6 GT; -MERO500P IV; -MULT-447 GT; +NA P133E RC; -NUT.237L30 GT; +NUT.250L18 GT; -NYST15CR TP; +ONDA4TAB5 GT; -POVI3780 TP; -VANC1PLA9 IV; -ZINC220C6 GT
[2023-10-21] MEDS: IV NS 0.9% 1,000 ML BAG IV ONE (09:10)
[2023-10-21] MEDS ORDERED: ACETAMINOPHEN 650 MG/SUPP.RECT RC ONE (09:21)
[2023-10-21 09:23] LABS: BASOPHILS # (AUTO) 0.1 K/uL (0.0-0.2); BASOPHILS % (AUTO) 0.4 % (0.0-2.0); EOSINOPHILS # (AUTO) 1.6 K/uL (0.0-0.7); EOSINOPHILS % (AUTO) 9.1 % (0.0-6.0); HEMATOCRIT 47 % (39-51); HEMOGLOBIN 16.3 g/dL (13.5-17.5); LYMPHOCYTES # (AUTO) 1.5 K/uL (0.8-4.8); LYMPHOCYTES % (AUTO) 8.5 % (20.0-44.0); MEAN CORPUSCULAR HEMOGLOBIN 32 PG (26.0-33.0); MEAN CORPUSCULAR HGB CONC 34 g/dl (31.0-36.0); MEAN CORPUSCULAR VOLUME 93 fL (80-96); MONOCYTES # (AUTO) 0.6 K/uL (0.1-1.30); MONOCYTES % (AUTO) 3.6 % (2.0-12.0); NEUTROPHILS % (AUTO) 78.4 % (43.0-81.0); PLATELET COUNT (AUTO) 338 K/uL (150-450); RED BLOOD CELL COUNT(AUTO) 5.09 MIL/uL (4.5-6.0); WHITE BLOOD COUNT (AUTO) 17.8 K/uL (4.3-11.0)
[2023-10-21] MEDS: ACETAMINOPHEN 650 MG/SUPP.RECT RC ONE (09:28)
[2023-10-21 09:29] LABS: CALCIUM, SERUM 9.9 mg/dL (8.5-10.1); CARBON DIOXIDE 23 mmol/L (21-32); CHLORIDE 104 mmol/L (98-107); CREATININE 0.7 mg/dL (0.6-1.3); GLUCOSE 120 mg/dL (74-106); SODIUM SERUM 139 mmol/L (136-145); UREA NITROGEN, BLOOD 19 mg/dL (7-18)
[2023-10-21 09:30] LABS: INR 1.13 (0.91-1.10); PARTIAL THROMBOPLASTIN TIME 29.8 SEC (24.3-34.3); PROTHROMBIN TIME 11.9 SECS (9.2-11.1)
[2023-10-21 09:35] LABS: ALANINE AMINOTRANSFERASE 62 U/L (12-78); ALKALINE PHOSPHATASE 102 U/L (46-116); ASPARTATE AMINOTRANSFERASE 23 U/L (15-37); BILIRUBIN,DIRECT 0.1 mg/dL (0.0-0.2); BILIRUBIN,TOTAL 0.4 mg/dL (0.2-1.0); TOTAL PROTEIN, SERUM 9.2 g/dL (6.4-8.2)
[2023-10-21 09:37] LABS: LACTIC ACID 1.1 mmol/L (0.4-2.0)
[2023-10-21 10:07] LABS: APPEARANCE,URINE Clear (CLEAR); BILIRUBIN,URINE Negative (NEGATIVE); BLOOD, URINE Negative Ery/uL (NEGATIVE); COLOR,URINE YELLOW (YELLOW); KETONES,URINE Negative (NEGATIVE); LEUKOCYTE ESTERASE ,URINE Negative (NEGATIVE); NITRITE, URINE Negative (NEGATIVE); PROTEIN,URINE Negative (NEGATIVE); UGLUCOSE Negative (NEGATIVE); UROBILINOGEN,URINE 0.2 EU/dL (0.2)
[2023-10-21] MEDS ORDERED: NUT.237L31 GT (10:08)
[2023-10-21] MEDS ORDERED: NEOM1OIN15 TP (10:08)
[2023-10-21] MEDS: PIPERACILLIN /TAZOBACTAM 3.375 G in IV D5W 50 ML IV ONE (10:30)
[2023-10-21] MEDS ORDERED: BISACODYL SUPP (10 MG) 10 MG/SUPP.RECT SUPP.RECT RC PRN (11:00)
[2023-10-21] MEDS ORDERED: MAGNESIUM HYDROXIDE 30 ML UDC PO PRN (11:00)
[2023-10-21] MEDS ORDERED: MAGNESIUM HYDROXIDE 30 ML UDC GT PRN (11:00)
[2023-10-21] MEDS ORDERED: NA PHOS,M-B/NA PHOS,DI-BA 1 EA ENEMA RC PRN (11:00)
[2023-10-21] MEDS ORDERED: ALBUTEROL FS 2.5 MG/3 ML VIAL.NEB NEB PRN (11:00)
[2023-10-21] MEDS ORDERED: ONDANSETRON HCL/PF 4 MG/2 ML VIAL IVP PRN (11:00)
[2023-10-21] MEDS ORDERED: HYDROCODONE/APAP 5/325MG TABLET GT PRN (11:00)
[2023-10-21] MEDS ORDERED: IPRATROPIUM NEB FS 0.5 MG/2.5 ML AMPUL.NEB NEB PRN (11:00)
[2023-10-21] MEDS: CEFEPIME 2 GM in IV D5W 100 ML IV SCH (16:27)
[2023-10-21] MEDS: VANCOMYCIN HCL 1.25 GM in IV D5W 250 ML IV ONE (16:27)
[2023-10-21] MEDS ORDERED: LORAZEPAM 0.5 MG TABLET GT PRN (16:30)
[2023-10-21] MEDS: ENOXAPARIN SODIUM 40 MG/0.4 ML DISP.SYRIN SQ SCH (16:34)
[2023-10-21] MEDS: CHLORHEXIDINE GLUCONATE 15 ML UDC MM SCH (17:24)
[2023-10-21] MEDS: CARVEDILOL 12.5 MG TABLET GT SCH (17:25)
[2023-10-21] MEDS: GLUCERNA 1.5 1,000 ML BOTTLE GT PRN (20:31)
[2023-10-21 20:52] VITALS: BP 109/79; TEMP 98.6; O2SAT 98
[2023-10-21] MEDS: SENNOSIDES 8.6 MG TABLET GT SCH (21:09)
[2023-10-21] MEDS: VANCOMYCIN 1 GM in IV D5W 250ml IV SCH (21:54)
[2023-10-22 00:10] VITALS: BP 109/75; TEMP 98.4; O2SAT 100
[2023-10-22 04:02] VITALS: BP 112/78; TEMP 97.7; O2SAT 100
[2023-10-22 07:00] VITALS: BP 109/75; TEMP 98.8; O2SAT 98
[2023-10-22 07:21] LABS: BASOPHILS % (AUTO) 0.1 % (0.0-2.0); EOSINOPHILS % (AUTO) 10.2 % (0.0-6.0); HEMATOCRIT 41 % (39-51); LYMPHOCYTES # (AUTO) 0.6 K/uL (0.8-4.8); LYMPHOCYTES % (AUTO) 6.4 % (20.0-44.0); MEAN CORPUSCULAR HEMOGLOBIN 32 PG (26.0-33.0); MEAN CORPUSCULAR HGB CONC 34 g/dl (31.0-36.0); MEAN CORPUSCULAR VOLUME 94 fL (80-96); MONOCYTES # (AUTO) 0.5 K/uL (0.1-1.30); MONOCYTES % (AUTO) 5.7 % (2.0-12.0); NEUTROPHILS # (AUTO) 7.3 K/uL (1.8-8.9); NEUTROPHILS % (AUTO) 77.6 % (43.0-81.0); PLATELET COUNT (AUTO) 254 K/uL (150-450); RED BLOOD CELL COUNT(AUTO) 4.36 MIL/uL (4.5-6.0); WHITE BLOOD COUNT (AUTO) 9.3 K/uL (4.3-11.0)
[2023-10-22 07:34] LABS: CALCIUM, SERUM 8.8 mg/dL (8.5-10.1); CREATININE 0.8 mg/dL (0.6-1.3); MAGNESIUM 1.8 mg/dL (1.8-2.4); PHOSPHORUS 3.3 mg/dL (2.5-4.9); POTASSIUM 3.9 mmol/L (3.5-5.1)
[2023-10-22] MEDS ORDERED: BACI/NEOM/POLY B OINT PKT 1 UDPKT PACKET TP SCH (09:00)
[2023-10-22] MEDS: PANTOPRAZOLE 40 MG VIAL IV SCH (09:01)
[2023-10-22 12:00] VITALS: BP 106/75; TEMP 98.6; O2SAT 99
[2023-10-22 16:00] VITALS: BP 111/79; TEMP 98.6; O2SAT 98
[2023-10-22] MEDS: Z GUARD REMEDY 4 OZ OINT TP PRN (18:19)
[2023-10-22] MEDS: NEOMY SULF/BACITRAC ZN/POLY 15 GM TUBE TP SCH (18:20)
[2023-10-23 00:50] VITALS: BP 92/66; TEMP 98.8; O2SAT 99
[2023-10-23 03:10] LABS: BASOPHILS % (AUTO) 0.3 % (0.0-2.0); EOSINOPHILS # (AUTO) 1.4 K/uL (0.0-0.7); EOSINOPHILS % (AUTO) 16.2 % (0.0-6.0); HEMATOCRIT 40 % (39-51); HEMOGLOBIN 13.8 g/dL (13.5-17.5); LYMPHOCYTES # (AUTO) 0.6 K/uL (0.8-4.8); LYMPHOCYTES % (AUTO) 7.5 % (20.0-44.0); MEAN CORPUSCULAR HEMOGLOBIN 32 PG (26.0-33.0); MEAN CORPUSCULAR HGB CONC 34 g/dl (31.0-36.0); MEAN CORPUSCULAR VOLUME 94 fL (80-96); MONOCYTES # (AUTO) 0.5 K/uL (0.1-1.30); MONOCYTES % (AUTO) 6.4 % (2.0-12.0); NEUTROPHILS # (AUTO) 5.9 K/uL (1.8-8.9); NEUTROPHILS % (AUTO) 69.6 % (43.0-81.0); PLATELET COUNT (AUTO) 249 K/uL (150-450); RED BLOOD CELL COUNT(AUTO) 4.29 MIL/uL (4.5-6.0); RED CELL DISTRIBUTION WIDTH 13.8 % (11.5-15.0); WHITE BLOOD COUNT (AUTO) 8.4 K/uL (4.3-11.0)
[2023-10-23 03:20] LABS: CALCIUM, SERUM 8.9 mg/dL (8.5-10.1); CREATININE 0.8 mg/dL (0.6-1.3)
[2023-10-23] MEDS: VANCOMYCIN 750 MG in IV D5W 250 ML IV SCH (03:51)
[2023-10-23 04:00] VITALS: BP 107/73; TEMP 97.9; O2SAT 98
[2023-10-23 08:00] VITALS: BP 123/71; TEMP 98.8; O2SAT 100
[2023-10-23] MEDS ORDERED: POLYVINYL ALCOHOL 15 ML BOTTLE EACHEYE PRN (10:00)
[2023-10-23 12:00] VITALS: BP 129/79; TEMP 98.8; O2SAT 100
[2023-10-23] MEDS: GLUCERNA 1.2 1,000 ML BOTTLE NG PRN (14:52)
[2023-10-23 20:00] VITALS: BP 125/75; TEMP 98.4; O2SAT 100
[2023-10-24] VITALS: BP 116/78; TEMP 98.2; O2SAT 100
[2023-10-24 05:04] VITALS: BP 123/84; TEMP 98.2; O2SAT 99
[2023-10-24 07:12] LABS: BASOPHILS % (AUTO) 0.1 % (0.0-2.0); EOSINOPHILS # (AUTO) 1.3 K/uL (0.0-0.7); EOSINOPHILS % (AUTO) 16.8 % (0.0-6.0); HEMATOCRIT 41 % (39-51); HEMOGLOBIN 13.8 g/dL (13.5-17.5); LYMPHOCYTES # (AUTO) 0.8 K/uL (0.8-4.8); LYMPHOCYTES % (AUTO) 10.5 % (20.0-44.0); MEAN CORPUSCULAR HEMOGLOBIN 32 PG (26.0-33.0); MEAN CORPUSCULAR HGB CONC 34 g/dl (31.0-36.0); MEAN CORPUSCULAR VOLUME 94 fL (80-96); MONOCYTES # (AUTO) 0.5 K/uL (0.1-1.30); MONOCYTES % (AUTO) 7.1 % (2.0-12.0); NEUTROPHILS % (AUTO) 65.5 % (43.0-81.0); PLATELET COUNT (AUTO) 262 K/uL (150-450); RED BLOOD CELL COUNT(AUTO) 4.36 MIL/uL (4.5-6.0); RED CELL DISTRIBUTION WIDTH 13.9 % (11.5-15.0); WHITE BLOOD COUNT (AUTO) 7.6 K/uL (4.3-11.0)
[2023-10-24 07:19] LABS: CALCIUM, SERUM 8.8 mg/dL (8.5-10.1); CREATININE 0.8 mg/dL (0.6-1.3); POTASSIUM 3.8 mmol/L (3.5-5.1)
[2023-10-24 07:55] VITALS: BP 119/79; TEMP 98.1; O2SAT 99
[2023-10-24 08:32] VITALS: BP 110/75; TEMP 97.8; O2SAT 99
[2023-10-24] MEDS: PANTOPRAZOLE 40 MG/PACK PACK GT SCH (09:49)
[2023-10-24 12:17] VITALS: BP 110/72; TEMP 97.9; O2SAT 99
[2023-10-24 16:22] VITALS: BP 112/79; TEMP 98.2; O2SAT 99
[2023-10-25 00:34] VITALS: BP 110/97; TEMP 98.1; O2SAT 98
[2023-10-25] MEDS: ACETAMINOPHEN 650 MG/20.3 ML UDC GT PRN (04:10)
[2023-10-25 06:00] VITALS: BP 110/73; TEMP 97.5; O2SAT 100
[2023-10-25 06:14] LABS: BASOPHILS % (AUTO) 0.4 % (0.0-2.0); EOSINOPHILS # (AUTO) 1.1 K/uL (0.0-0.7); EOSINOPHILS % (AUTO) 18.7 % (0.0-6.0); HEMATOCRIT 39 % (39-51); HEMOGLOBIN 13.6 g/dL (13.5-17.5); LYMPHOCYTES # (AUTO) 0.9 K/uL (0.8-4.8); LYMPHOCYTES % (AUTO) 15.6 % (20.0-44.0); MEAN CORPUSCULAR HEMOGLOBIN 33 PG (26.0-33.0); MEAN CORPUSCULAR HGB CONC 35 g/dl (31.0-36.0); MEAN CORPUSCULAR VOLUME 94 fL (80-96); MONOCYTES # (AUTO) 0.2 K/uL (0.1-1.30); MONOCYTES % (AUTO) 4.1 % (2.0-12.0); NEUTROPHILS # (AUTO) 3.7 K/uL (1.8-8.9); NEUTROPHILS % (AUTO) 61.2 % (43.0-81.0); PLATELET COUNT (AUTO) 229 K/uL (150-450); RED BLOOD CELL COUNT(AUTO) 4.17 MIL/uL (4.5-6.0); RED CELL DISTRIBUTION WIDTH 13.9 % (11.5-15.0)
[2023-10-25 06:49] LABS: CALCIUM, SERUM 8.6 mg/dL (8.5-10.1); CREATININE 0.8 mg/dL (0.6-1.3); POTASSIUM 3.7 mmol/L (3.5-5.1)
[2023-10-25 08:22] VITALS: BP 103/77; TEMP 97.9; O2SAT 99
[2023-10-25 14:23] VITALS: BP 109/76; TEMP 98.4; O2SAT 97
== END 2023-10-25 15:55 | DRG 720 ==
LOC: ER 09:07 → TELE 13:55 → MED 10-25 15:42
PROVIDERS: ADMIT Nurse Practitioner Acute Care; ATTEND Nurse Practitioner Acute Care
PROC: 5A1955Z Respiratory Ventilation, Greater than 96 Consecutive Hours (ICD-10-PCS; principal; 2023-10-21)
DX: A41.9 Sepsis, unspecified organism (principal); J96.21 Acute and chronic respiratory failure with hypoxia; I50.21 Acute systolic (congestive) heart failure; J15.69 Pneumonia due to other Gram-negative bacteria; G93.1 Anoxic brain damage, not elsewhere classified; E44.0 Moderate protein-calorie malnutrition; D68.59 Other primary thrombophilia; E88.09 Other disorders of plasma-protein metabolism, not elsewhere classified; I42.9 Cardiomyopathy, unspecified; Z99.11 Dependence on respirator [ventilator] status; Z93.0 Tracheostomy status; D75.1 Secondary polycythemia; Z93.1 Gastrostomy status; R13.10 Dysphagia, unspecified; Z74.01 Bed confinement status; Z79.51 Long term (current) use of inhaled steroids; Z79.899 Other long term (current) drug therapy; Z86.74 Personal history of sudden cardiac arrest; Z90.49 Acquired absence of other specified parts of digestive tract; Z74.09 Other reduced mobility; K80.20 Calculus of gallbladder without cholecystitis without obstruction; N17.9 Acute kidney failure, unspecified; Y95 Nosocomial condition; B86 Scabies
CPT/HCPCS: 31720; 36415; 71045-TC; 76700-TC; 80048-TC; 80061-TC; 80076-TC; 80202-TC; 83605-TC; 83735-TC; 84100-TC; 84484-TC; 85025-TC; 85730-TC; 87040-TC; 87086-TC; 94002-TC; 94003-TC; 94760-TC; 94762-TC; 94799-TC; 99082-TC; A4223; A7526; G0378; J0692; J1650; J2470; J2543; J3370; J3371; J7030; J7060